=== PATIENT | male | born 1960 | race African-American/Black ===

== ENCOUNTER 2018-08-04 08:50 | Inpatient (IN) | payer OTHER ==
[2018-08-04 11:44] VITALS: BMI 25.1
--- NOTE | 2018-08-04 12:52 | HP ---
CIWA Score Nausea/Vomitin-No Nausea/No Vomiting Muscle Tremors: 7-Severe,w/o Arm Extended Anxiety: 4-Mod. Anxious/Guarded Agitation: 2 Paroxysmal Sweats: No Perspiration Orientation: 2-Disoriented Date<2 days Tacttile Disturbances: 0-None Auditory Disturbances: 0-None Visual Disturbances: 0-None Headache: 0-None Present CIWA-Ar Total Score: 15 - Admission Criteria OASAS Guidelines: Admission for Medically Managed Detox: Requires at least one of the followin. CIWA greater than 12 2. Seizures within the past 24 hours 3. Delirium tremens within the past 24 hours 4. Hallucinations within the past 24 hours 5. Acute intervention needed for co occurring medical disorder 6. Acute intervention needed for co occurring psychiatric disorder 7. Severe withdrawal that cannot be handled at a lower level of care (continued vomiting, continued diarrhea, abnormal vital signs) requiring intravenous medication and/or fluids 8. Admission ROS BHS - HPI Allergies/Adverse Reactions: Allergies Allergy/AdvReac Type Severity Reaction Status Date / Time penicillin G Allergy Verified 08/04/18 11:35 History of Present Illness: pt here requesting detox from etoh use , reports 3-4 pints/day since "years ago " , + w/d seizures , was at [facility] earlier today , was given librium and sent to this facility . 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 homeless , on SSD . Exam Limitations: No Limitations - Ebola screening Have you traveled outside of the country in the last 21 days: No Have you had contact with anyone from an Ebola affected area: No - Review of Systems Constitutional: See HPI EENT: reports: See HPI, Other (left eye blind) Respiratory: reports: See HPI (reports chronic bronchitis) Cardiac: reports: No Symptoms Reported GI: reports: See HPI : reports: No Symptoms Reported Musculoskeletal: reports: Joint Pain (vitaliy knees , left hip - chronic) Integumentary: reports: No Symptoms Reported Neuro: reports: Pre-Existing Deficit, Seizure, Unsteady Gait (2/2 chronic knee / hip pain) Endocrine: reports: No Symptoms Reported Psychiatric: reports: Orientated x3, Anxious, Depressed Patient History - Smoking Cessation Smoking history: Never smoked - Substances abused Alcohol Substance route: Oral Frequency: Daily Amount used: 4-5 PINTS OF VODKA, 4 CANS OF BEER (24 OUNCES) Age of first use: 13 Date of last use: 08/04/18 Family Disease History - Family Disease History Family Disease History: Other: Father (htn), Mother (htn), Brother (2 brothers d. ), Sister (1 sister d. , 1 sister A & W ), Son (3, A & W ), Daughter (1 , a & w ) Admission Physical Exam S - Vital Signs Vital Signs: Vital Signs - 24 hr 08/04/18 11:41 Temperature 98.4 F Pulse Rate 94 H Respiratory 18 Rate Blood Pressure 147/92 - Physical General Appearance: Yes: Mild Distress, Anxious HEENTM: Yes: Normocephalic, Normal Voice, Other (left eye blind , glasses) Respiratory: Yes: Lungs Clear, Normal Breath Sounds, No Respiratory Distress, No Accessory Muscle Use Neck: Yes: No masses,lesions,Nodules, Trachea in good position Cardiology: Yes: Regular Rhythm, Regular Rate, S1, S2, Tachycardia Abdominal: Yes: Non Tender, Soft Musculoskeletal: Yes: Joint Stiffness (left >> right knee w/ crepitus left knee , decreased AROM vitaliy knees), Other (unsteady gait , using cane for ambulation) Extremities: Yes: Pedal Edema (vitaliy LE , symmetrical, non- pitting , to mid-calf ), Other (vitaliy knees stiffness , L >> R , decreased AROM left knee , + crepitus left knee) Neurological: Yes: Alert, Motor Strength 5/5 Integumentary: Yes: Warm - Diagnostic (1) Alcohol abuse with intoxication Current Visit: Yes Status: Acute Inpatient Rehab Admission - Rehab Decision to Admit Inpatient rehab admission?: No
[2018-08-04] MEDS ORDERED: guaiFENesin 200 MG/10 ML 10 ML UNIT-DOSE CUPS PO PRN (13:06)
[2018-08-04] MEDS ORDERED: MENTHOL/PHENOL 1 EACH UD MM PRN (13:06)
[2018-08-04] MEDS ORDERED: BISMUTH SUBSALICYLATE 524 MG/30 ML UD PO PRN (13:06)
[2018-08-04] MEDS ORDERED: MAGNESIUM HYDROX 2400MG/30ML ORAL SUSPENSION 30 ML CUP PO PRN (13:06)
[2018-08-04] MEDS ORDERED: hydrOXYzine PAMOATE 25 MG CAPSULE (FP) PO PRN (13:06)
[2018-08-04] MEDS ORDERED: ACETAMINOPHEN 325 MG TABLET (FP) PO PRN ×2 (13:06)
[2018-08-04] MEDS ORDERED: MAG HYDROX/AL HYDROX/SIMETH 30 ML UNIT-DOSE CUP PO PRN (13:06)
[2018-08-04] MEDS ORDERED: MAGNESIUM CITRATE 300 ML BOTTLE PO PRN (13:06)
[2018-08-04] MEDS ORDERED: IBUPROFEN 400 MG TABLET (FP) PO PRN (13:06)
[2018-08-04] MEDS ORDERED: chlordiazePOXIDE HCL 25 MG CAPSULE PO PRN (14:37)
[2018-08-04] MEDS ORDERED: cloNIDine-TTS 0.3 MG /24 HRS PATCH.TDWK TD SCH (15:00)
[2018-08-04] MEDS: PHENYTOIN NA EXTENDED 100 MG CAPSULE (FP) PO SCH ×2 (15:44→22:42)
[2018-08-04] MEDS: METOPROLOL TARTRATE 50 MG TABLET (FP) PO SCH (15:44)
--- NOTE | 2018-08-04 16:22 | CONSULT ---
[facility] Psychiatric Consult - Data Date of interview: 08/04/18 Admission source: [facility] Identifying data: First admission to [facility] for this 58 y/o AA male self- referred for detoxification (alcohol). Interviewed on . Patient is single , a father of four, homeless, unemployed and supported on SSD benefits. Substance Abuse History: Discussed in this interview. Mr Fitzpatrick endorses an enduring history of alcohol abuse since age 12-13. Details in [facility] report as follows : Alcohol. Substance route: Oral. Frequency: Daily. Amount used: 4 -5 PINTS OF VODKA, 4 CANS OF BEER (24 OUNCES). Age of first use: 13. 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 Patient walks with a cane. Psychiatric History: Patient denies history of psychiatric hospitalizations. Mr Fitzpatrick indicates that he sees a psychiatrist + therapist at [facility] in the [place]. Diagnosed with Bipolar Disorder and PTSD (self-report). Patient states that he is prescribed " a medication for sleep ". Name not recalled. No history of suicide attempts. Physical/Sexual Abuse/Trauma History: Patient denies history of abuse. Served in the [employer] for two years. 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 Patient reports a background of " less than honorable discharge ". Mr Fitzpatrick reports no combat experience. Additional Comment: Toxicology not available for review. Mental Status Exam - Mental Status Exam Alert and Oriented to: Time, Place, Person Cognitive Function: Good Patient Appearance: Well Groomed Mood: Nervous, Withdrawn, Anxious Affect: Mood Congruent, Constricted Patient Behavior: Fatigued, Appropriate, Cooperative Speech Pattern: Clear, Appropriate Voice Loudness: Normal Thought Process: Goal Oriented Hallucinations: Denies Suicidal Ideation: Denies Homicidal Ideation: Denies Insight/Judgement: Poor Sleep: Fair Appetite: Good Gait/Station: Other (slow gait ; walks with a cane) Psychiatric Findings - Problem List ([place] 1, 2,3) (1) Alcohol use disorder Current Visit: Yes Status: Chronic (2) History of posttraumatic stress disorder (PTSD) Current Visit: Yes Status: Chronic Comment: No symptoms elicited in this interview. (3) Insomnia Current Visit: Yes Status: Chronic - Initial Treatment Plan Initial Treatment Plan: Psychoeducation. Sleep hygiene. Insomnia is addressed with melatoin at bedtime. Side effects/benefits reviewed with patient. Detoxification. AA meetings. Relapse prevention (MAT) : discussed in this session. Support. Observation.
[2018-08-04] MEDS: chlordiazePOXIDE HCL 25 MG CAPSULE PO SCH ×2 (18:09→22:42)
[2018-08-04] MEDS: BRIMONIDINE TARTRATE 0.2% OPHTHALMIC 5 ML BOTTLE OS SCH (22:41)
[2018-08-04] MEDS: THIAMINE HCL 100 MG TABLET (FP) PO SCH (22:42)
[2018-08-04] MEDS: ATORVASTATIN CA 10 MG TABLET (FP) PO SCH (22:42)
[2018-08-04] MEDS: MELATONIN 5 MG TABLETS PO PRN (22:44)
[2018-08-05] MEDS: chlordiazePOXIDE HCL 25 MG CAPSULE PO SCH ×4 (06:27→22:09)
[2018-08-05] MEDS: PHENYTOIN NA EXTENDED 100 MG CAPSULE (FP) PO SCH ×3 (06:27→22:09)
[2018-08-05] MEDS: BRIMONIDINE TARTRATE 0.2% OPHTHALMIC 5 ML BOTTLE OS SCH ×3 (06:28→22:11)
[2018-08-05] MEDS: PRENATAL VITAMINS W/ FOLIC ACID TABLET (FP) PO SCH (10:23)
[2018-08-05] MEDS: FLUTICASONE PROP 0.05% 16 GM NASAL SPRAY NS SCH (10:23)
[2018-08-05] MEDS: METOPROLOL TARTRATE 50 MG TABLET (FP) PO SCH (10:25)
[2018-08-05 10:36] LABS: HEMATOCRIT 29.4 % (35.4-49); MCH 33.1 pg (25.7-33.7); MCHC 34.1 g/dl (32.0-35.9); MEAN PLT VOLUME 8.1 fl (7.5-11.1); PLATELET COUNT 242 K/MM3 (134-434); RBC 3.03 M/mm3 (4.00-5.60); RDW 13.5 % (11.9-15.9); WHITE BLOOD COUNT 4.3 K/mm3 (4.0-10.0)
--- NOTE | 2018-08-05 10:40 | PN ---
[facility] CIWA - CIWA Score Nausea/Vomitin Muscle Tremors: 2 Anxiety: 2 Agitation: 0-Normal Activity Paroxysmal Sweats: 3 Orientation: 0-Oriented Tacttile Disturbances: 0-None Auditory Disturbances: 0-None Visual Disturbances: 0-None Headache: 0-None Present CIWA-Ar Total Score: 10 BHS Progress Note (SOAP) Subjective: PATIENT C/O NAUSEA, DIARRHEA, NIGHT SWEATS AND SHAKES. Objective: 08/05/18 10:37 PE: ALERT AND ORIENTED X 3 SKIN WARM, MILD MOISTURE TO TRUNK OF BODY +PERRLA, EOMS INTACT BL EXT MILD TREMORS, +1 PEDAL EDEMA B/L AMB WITH CANE Assessment: 08/05/18 10:39 WITHDRAWAL SX Plan: CONTINUE DETOX ENCOURAGE ORAL FLUIDS LEG ELEVATION WHILE IN BED LABS PENDING
[2018-08-05 10:49] LABS: ALBUMIN 3.2 g/dl (3.4-5.0); BILIRUBIN,TOTAL 0.6 mg/dL (0.2-1); BLOOD UREA NITROGEN 10.4 mg/dL (7-18); CALCIUM 8.9 mg/dL (8.5-10.1); CREATININE 0.9 mg/dL (0.55-1.3)
[2018-08-05] MEDS: THIAMINE HCL 100 MG TABLET (FP) PO SCH (22:09)
[2018-08-05] MEDS: MELATONIN 5 MG TABLETS PO PRN (22:09)
[2018-08-05] MEDS: ATORVASTATIN CA 10 MG TABLET (FP) PO SCH (22:09)
[2018-08-06] MEDS: chlordiazePOXIDE HCL 25 MG CAPSULE PO SCH ×2 (05:51→10:03)
[2018-08-06] MEDS: PHENYTOIN NA EXTENDED 100 MG CAPSULE (FP) PO SCH ×3 (05:51→22:20)
[2018-08-06] MEDS: BRIMONIDINE TARTRATE 0.2% OPHTHALMIC 5 ML BOTTLE OS SCH ×3 (05:52→22:21)
[2018-08-06] MEDS: PRENATAL VITAMINS W/ FOLIC ACID TABLET (FP) PO SCH (10:03)
[2018-08-06] MEDS: FLUTICASONE PROP 0.05% 16 GM NASAL SPRAY NS SCH (10:03)
[2018-08-06] MEDS: METOPROLOL TARTRATE 50 MG TABLET (FP) PO SCH (10:03)
--- NOTE | 2018-08-06 12:55 | PN ---
S CIWA - CIWA Score Nausea/Vomitin-Mild Nausea/No Vomiting Muscle Tremors: 3 Anxiety: 3 Agitation: 3 Paroxysmal Sweats: 3 Orientation: 0-Oriented Tacttile Disturbances: 0-None Auditory Disturbances: 0-None Visual Disturbances: 0-None Headache: 0-None Present CIWA-Ar Total Score: 13 S Progress Note (SOAP) Subjective: Interrupted sleep Objective: 08/06/18 12:52 Last Vital Signs Temp Pulse Resp BP Pulse Ox 97.9 F 69 16 133/76 08/06/18 09:38 08/06/18 09:38 08/06/18 09:38 08/06/18 09:38 Laboratory Tests 08/05/18 08/05/18 08/05/18 08:00 08:00 08:00 WBC 4.3 RBC 3.03 L Hgb 10.0 L Hct 29.4 L MCV 97.0 H MCH 33.1 MCHC 34.1 RDW 13.5 Plt Count 242 MPV 8.1 Sodium 139 Potassium 4.0 Chloride 104 Carbon Dioxide 26 Anion Gap 9 BUN 10.4 Creatinine 0.9 Est GFR (CKD-EPI)AfAm 108.73 Est GFR (CKD-EPI)NonAf 93.82 Random Glucose 109 H Calcium 8.9 Total Bilirubin 0.6 AST 34 ALT 32 Alkaline Phosphatase 88 Total Protein 7.0 Albumin 3.2 L RPR Titer Nonreactive Labs reviewed: anemia noted Assessment: 08/06/18 12:53 Withdrawal symptoms Noted with anemia Plan: Continue detox Encouraged PO water hydration Anemia: most likely due to chronic alcoholism, encourage to eat more green leafy vegetables, follow up with PCP for management
[2018-08-06] MEDS ORDERED: chlordiazePOXIDE HCL 10 MG CAPSULE PO PRN (17:00)
[2018-08-06] MEDS: chlordiazePOXIDE HCL 10 MG CAPSULE PO SCH ×2 (17:15→22:20)
[2018-08-06] MEDS ORDERED: cloNIDine HCL 0.1 MG TABLET PO ONE (17:46)
--- NOTE | 2018-08-06 17:49 | PN ---
S Progress Note Note: 163/110,no complaint,will give clonidine 0.1 mg po now,bp monitoring
[2018-08-06] MEDS: ATORVASTATIN CA 10 MG TABLET (FP) PO SCH (22:20)
[2018-08-06] MEDS: THIAMINE HCL 100 MG TABLET (FP) PO SCH (22:20)
[2018-08-07] MEDS: BRIMONIDINE TARTRATE 0.2% OPHTHALMIC 5 ML BOTTLE OS SCH ×3 (05:52→22:22)
[2018-08-07] MEDS: chlordiazePOXIDE HCL 10 MG CAPSULE PO SCH ×3 (05:52→18:52)
[2018-08-07] MEDS: PHENYTOIN NA EXTENDED 100 MG CAPSULE (FP) PO SCH ×3 (05:52→22:23)
[2018-08-07] MEDS: PRENATAL VITAMINS W/ FOLIC ACID TABLET (FP) PO SCH (10:23)
[2018-08-07] MEDS: FLUTICASONE PROP 0.05% 16 GM NASAL SPRAY NS SCH (10:24)
[2018-08-07] MEDS: METOPROLOL TARTRATE 50 MG TABLET (FP) PO SCH (11:19)
--- NOTE | 2018-08-07 12:46 | PN ---
[facility] CIWA - CIWA Score Nausea/Vomitin-No Nausea/No Vomiting Muscle Tremors: 2 Anxiety: 1-Mildly Anxious Agitation: 1-Slight > Activity Paroxysmal Sweats: No Perspiration Orientation: 0-Oriented Tacttile Disturbances: 0-None Auditory Disturbances: 0-None Visual Disturbances: 0-None Headache: 0-None Present CIWA-Ar Total Score: 4 BHS Progress Note (SOAP) Subjective: anxiety feeling better. i am ready to start my aftercare. Objective: 08/07/18 12:44 Vital Signs Temperature 98.8 F 08/07/18 09:21 Pulse Rate 98 H 08/07/18 09:21 Respiratory Rate 17 08/07/18 09:21 Blood Pressure 137/100 08/07/18 09:21 O2 Sat by Pulse Oximetry (%) aaox3 BP noted pt is already on clonidine 0.3mg via patch will order a 0.1mg of clonidine x one Assessment: 08/07/18 12:45 mild withdrawal sx Plan: continue detox increase fluids d/c in am
[2018-08-07] MEDS ORDERED: cloNIDine HCL 0.1 MG TABLET PO ONE (13:15)
[2018-08-07] MEDS: ATORVASTATIN CA 10 MG TABLET (FP) PO SCH (22:23)
[2018-08-07] MEDS: THIAMINE HCL 100 MG TABLET (FP) PO SCH (22:23)
[2018-08-07] MEDS: MELATONIN 5 MG TABLETS PO PRN (22:24)
[2018-08-08] MEDS: BRIMONIDINE TARTRATE 0.2% OPHTHALMIC 5 ML BOTTLE OS SCH (05:59)
[2018-08-08] MEDS: PHENYTOIN NA EXTENDED 100 MG CAPSULE (FP) PO SCH (05:59)
[2018-08-08] MEDS: chlordiazePOXIDE HCL 10 MG CAPSULE PO SCH (06:00)
--- NOTE | 2018-08-08 09:17 | DS ---
[facility] Detox Discharge Summary Admission Date: 08/04/18 Discharge Date: 08/08/18 - History Present History: Alcohol Dependence - Physical Exam Results Vital Signs: Vital Signs Temperature 96.6 F L 08/08/18 06:00 Pulse Rate 76 08/08/18 07:16 Respiratory Rate 18 08/08/18 07:16 Blood Pressure 150/97 08/08/18 07:16 O2 Sat by Pulse Oximetry (%) - Treatment Hospital Course: Detox Protocol Followed, Detoxed Safely, Responded well, Discharged Condition Good, Rehab Referral Accepted - Medication Discharge Medications: Ambulatory Orders Brimonidine Tartrate [Alphagan 0.2% -] 1 drop TID 08/04/18 Clonidine Patch [Catapres Tts Patch -] 0.3 mg TD WEEKLY 08/04/18 Ergocalciferol [Vitamin D2] 50,000 unit PO Q7D@1000 08/04/18 Fluticasone Prop 0.05% Nasal [Flonase -] 1 spray NS DAILY 08/04/18 Folic Acid - 1 mg PO DAILY 08/04/18 Metoprolol Tartrate [Lopressor] 100 mg PO DAILY 08/04/18 Multivitamin [One-Daily Multi-Vitamin] 1 each PO DAILY 08/04/18 Phenytoin Na Extended [Dilantin -] 100 mg PO TID 08/04/18 Simvastatin [Zocor -] 20 mg PO HS 08/04/18 - Diagnosis (1) History of posttraumatic stress disorder (PTSD) Current Visit: Yes Status: Chronic (2) Insomnia Current Visit: Yes Status: Chronic (3) Alcohol dependence with uncomplicated withdrawal Current Visit: Yes Status: Chronic - AMA Did Patient Leave Against Medical Advice: No (referred to [facility])
[2018-08-08 09:32] VITALS: BP 148/103; PULSE 79; TEMP 96.8
[2018-08-08] MEDS: FLUTICASONE PROP 0.05% 16 GM NASAL SPRAY NS SCH (09:34)
[2018-08-08] MEDS: METOPROLOL TARTRATE 50 MG TABLET (FP) PO SCH (09:34)
[2018-08-08] MEDS: PRENATAL VITAMINS W/ FOLIC ACID TABLET (FP) PO SCH (09:34)
[2018-08-11] MEDS ORDERED: ERGOCALCIFEROL (VIT D2) 50,000 UNIT (1.25 MG) CAPSULE PO SCH (10:00)
== END 2018-08-08 11:30 | disposition home or self-care (01) | DRG 897 ==
LOC: YASAS 08:50 → Y6N 14:12
PROVIDERS: ADMIT Surgery; ATTEND Surgery
PROC: HZ2ZZZZ Detoxification Services for Substance Abuse Treatment (ICD-10-PCS; principal; 2018-08-04)
DX: F10.230 Alcohol dependence with withdrawal, uncomplicated (principal); I10 Essential (primary) hypertension; G47.00 Insomnia, unspecified; D64.9 Anemia, unspecified; E78.5 Hyperlipidemia, unspecified; K21.9 Gastro-esophageal reflux disease without esophagitis; H54.40 Blindness, one eye, unspecified eye; G40.909 Epilepsy, unspecified, not intractable, without status epilepticus; R00.0 Tachycardia, unspecified; M25.562 Pain in left knee; M25.561 Pain in right knee; R26.2 Difficulty in walking, not elsewhere classified; M25.552 Pain in left hip; G89.29 Other chronic pain; Z88.0 Allergy status to penicillin
CPT/HCPCS: 36415; 71045-TC-FY; 80053; 85027; 86593; J0735

== ENCOUNTER 2018-10-02 10:57 | Inpatient (IN) | payer OTHER ==
[2018-10-02 13:47] VITALS: BMI 25.7
--- NOTE | 2018-10-02 15:24 | HP ---
Addendum entered and electronically signed by Tamanna Meadows, RESIDENT 10/02/18 16: 27: Patient now decided he also wants rehab. Original Note: CIWA Score Nausea/Vomitin Muscle Tremors: 2 Anxiety: 2 Agitation: 2 Paroxysmal Sweats: 2 Orientation: 0-Oriented Tacttile Disturbances: 0-None Auditory Disturbances: 0-None Visual Disturbances: 0-None Headache: 2-Mild CIWA-Ar Total Score: 12 - Admission Criteria OASAS Guidelines: Admission for Medically Managed Detox: Requires at least one of the followin. CIWA greater than 12 2. Seizures within the past 24 hours 3. Delirium tremens within the past 24 hours 4. Hallucinations within the past 24 hours 5. Acute intervention needed for co occurring medical disorder 6. Acute intervention needed for co occurring psychiatric disorder 7. Severe withdrawal that cannot be handled at a lower level of care (continued vomiting, continued diarrhea, abnormal vital signs) requiring intravenous medication and/or fluids 8. Admission ROS [facility] Chief Complaint: alcohol detox Allergies/Adverse Reactions: Allergies Allergy/AdvReac Type Severity Reaction Status Date / Time penicillin G Allergy Verified 08/04/18 11:35 History of Present Illness: Patient is a 58 yo M with a PMHx of HTN, PTSD, bipolar disoder, seizure disorder , chronic bronchitis, is presenting for alcohol detox. Does not want rehab. Patient has been drinking for 40 years. Last drink last night estimated at around 4 Pints. Patient drinks daily. Hx of blacking out, when having a seizure. Last seizure was last week. Denies drug use, tobacco use. Patient homeless. Last here 08/04-08/08 for detox - Ebola screening Have you traveled outside of the country in the last 21 days: No Have you had contact with anyone from an Ebola affected area: No - Review of Systems Constitutional: Unintentional Wgt. Loss EENT: reports: Blurred Vision (Cant see from left eye) Respiratory: reports: Cough (says he has chronic bronchitis). denies: Shortness of Breath Cardiac: reports: Edema Patient History - Patient Medical History Hx Asthma: No Hx Chronic Obstructive Pulmonary Disease (COPD): Yes (chronic bronchitis) Hx Cardiac Disorders: No Hx Hypertension: Yes Hx Seizures: Yes (last 1 week ago on meds.) Hx Diabetes: No Hx Gastrointestinal Disorders: No Hx Genitourinary Disorders: No Hx Sexually Transmitted Disorders: No Hx Renal Disease (ESRD): No Hx Depression: Yes Hx Suicide Attempt: No Hx Schizophrenia: No - Patient Surgical History Past Surgical History: Yes Hx Neurologic Surgery: No Hx Cataract Extraction: No Hx Cardiac Surgery: No Hx Lung Surgery: No Hx Breast Surgery: No Hx Breast Biopsy: No Hx Abdominal Surgery: No Hx Appendectomy: No Hx Cholecystectomy: No Hx Genitourinary Surgery: No Hx Section: No Hx Orthopedic Surgery: Yes Other Surgical History: L eye sx x2 from trauma. - Smoking Cessation Smoking history: Never smoked Hx Chewing Tobacco Use: No - Substances abused Alcohol Substance route: Oral Frequency: Daily Amount used: 4 PINTS OF VODKA, 4 CANS OF BEER (24 OUNCES) Age of first use: 13 Date of last use: 10/01/18 Family Disease History - Family Disease History Family Disease History: Other: Father (htn), Mother (htn), Brother (2 brothers d. ), Sister (1 sister d. , 1 sister A & W ), Son (3, A & W ), Daughter (1 , a & w ) Admission Physical Exam BHS - Vital Signs Vital Signs: Vital Signs - 24 hr 10/02/18 13:26 Temperature 97.7 F Pulse Rate 70 Respiratory 16 Rate Blood Pressure 168/104 H - Physical General Appearance: Yes: No Apparent Distress Respiratory: Yes: No Respiratory Distress, No Accessory Muscle Use Cardiology: Yes: Regular Rate. No: JVD Extremities: Yes: Other (Edema) - Diagnostic (1) Bipolar 1 disorder Current Visit: Yes Status: Acute (2) Alcohol dependence with uncomplicated withdrawal Current Visit: No Status: Chronic (3) History of posttraumatic stress disorder (PTSD) Current Visit: No Status: Chronic Comment: No symptoms elicited in this interview. Breathalyzer - Breathalyzer Breathalyzer: 0 Urine Drug Screen - Test Device Lot number: [id number] Expiration date: 07/14/20 - Control Is test valid?: Yes - Results Drug screen NEGATIVE: No Urine drug screen results: BZO-Benzodiazepines Inpatient Rehab Admission - Rehab Decision to Admit Inpatient rehab admission?: No
[2018-10-02] MEDS ORDERED: hydrOXYzine PAMOATE 25 MG CAPSULE (FP) PO PRN (16:07)
[2018-10-02] MEDS ORDERED: IBUPROFEN 400 MG TABLET (FP) PO PRN (16:07)
[2018-10-02] MEDS ORDERED: MAGNESIUM CITRATE 300 ML BOTTLE PO PRN (16:07)
[2018-10-02] MEDS ORDERED: ACETAMINOPHEN 325 MG TABLET (FP) PO PRN (16:07)
[2018-10-02] MEDS ORDERED: METHOCARBAMOL 500 MG TABLET PO PRN (16:07)
[2018-10-02] MEDS ORDERED: chlordiazePOXIDE HCL 25 MG CAPSULE PO PRN (16:07)
[2018-10-02] MEDS ORDERED: BISMUTH SUBSALICYLATE 524 MG/30 ML UD PO PRN (16:07)
[2018-10-02] MEDS ORDERED: MAG HYDROX/AL HYDROX/SIMETH 30 ML UNIT-DOSE CUP PO PRN (16:07)
[2018-10-02] MEDS ORDERED: MENTHOL/PHENOL 1 EACH UD MM PRN (16:07)
[2018-10-02] MEDS ORDERED: MAGNESIUM HYDROX 2400MG/30ML ORAL SUSPENSION 30 ML CUP PO PRN (16:07)
--- NOTE | 2018-10-02 16:56 | PN ---
Teaching Attending Note Name of Resident: Tamanna Meadows ATTENDING PHYSICIAN STATEMENT I saw and evaluated the patient. I reviewed the resident's note and discussed the case with the resident. I agree with the resident's findings and plan as documented. SUBJECTIVE: this 58 years old male with alcohol dependence,seizure,bipolar disorder seeking detox, OBJECTIVE: withdrawal signs and symptom Vital Signs Temperature 97.7 F 10/02/18 13:26 Pulse Rate 70 10/02/18 13:26 Respiratory Rate 16 10/02/18 13:26 Blood Pressure 168/104 H 10/02/18 13:26 O2 Sat by Pulse Oximetry (%) ASSESSMENT AND PLAN: this patient need inpatient detox from alcohol medically managed,librium regimen ,seizure precaution, encourage to go to rehab after detox
[2018-10-02] MEDS: chlordiazePOXIDE HCL 25 MG CAPSULE PO SCH ×2 (16:58→22:27)
[2018-10-02] MEDS ORDERED: METOPROLOL TARTRATE 50 MG TABLET (FP) PO ONE (17:00)
[2018-10-02] MEDS: THIAMINE HCL 100 MG TABLET (FP) PO SCH (22:27)
[2018-10-02] MEDS: PHENYTOIN NA EXTENDED 100 MG CAPSULE (FP) PO SCH (22:27)
[2018-10-02] MEDS: levETIRAcetam 500 MG TABLET (FP) PO SCH (22:27)
[2018-10-02] MEDS: MELATONIN 5 MG TABLETS PO PRN (22:29)
[2018-10-03] MEDS: chlordiazePOXIDE HCL 25 MG CAPSULE PO SCH ×4 (06:15→22:57)
[2018-10-03] MEDS: PHENYTOIN NA EXTENDED 100 MG CAPSULE (FP) PO SCH ×3 (06:18→22:57)
--- NOTE | 2018-10-03 09:34 | CONSULT ---
[facility] Psychiatric Consult - Data Date of interview: 10/03/18 Admission source: Self-referred Identifying data: Mr Fitzpatrick is a single Black, father of 4 children, unemployed receiving SSD, homeless seeking detox treatment for alcohol Substance Abuse History: Reports history of alcohol use. Refer to addiction counselor's summary for further information Medical History: Significant for chronic pain syndrome (left hip, both knees), dyslipidemia, GERD, hypertension, blindness in left eye (trauma), seizure disorder and history of traumatic brain injury (1981) . Patient walks with a cane. 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 Reports that he currently sees a therapist and a psychiatrist at [facility] in the [place] and he is prescribed medication to calm him down. This is not confirmed by calling [phone]. Pharmacist named all the medications patient filled there and none of them is psychotropic medication. Patient denies previous psychiatric hospitalizations or suicidal attempt. At present, denies experiencing psychotic, manic symptoms, S/H ideations. However, reports feeling depressed and sleeping poorly Physical/Sexual Abuse/Trauma History: Patient denies history of any type of abuse. Served in the [employer] for two years from [id number]. 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 Patient reports a background of " less than honorable discharge ". Mr Fitzpatrick reports no combat experience. 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 Reports being given 2 tickets for drinking Mental Status Exam - Mental Status Exam Alert and Oriented to: Time, Place, Person Cognitive Function: Fair Patient Appearance: Well Groomed Mood: Depressed Affect: Constricted Patient Behavior: Cooperative Speech Pattern: Clear Voice Loudness: Normal Thought Process: Intact, Goal Oriented Thought Disorder: Not Present Hallucinations: Denies Suicidal Ideation: Denies Homicidal Ideation: Denies Insight/Judgement: Poor Sleep: Poorly Appetite: Good Muscle strength/Tone: Normal Gait/Station: Other (uses a cane as ambulatory aid) Psychiatric Findings - Problem List ([place] 1, 2,3) (1) PTSD (post-traumatic stress disorder) Current Visit: Yes Status: Chronic (2) Bipolar disorder Current Visit: Yes Status: Chronic (3) Alcohol-induced mood disorder Current Visit: Yes Status: Acute (4) Alcohol-induced sleep disorder Current Visit: Yes Status: Acute (5) Alcohol dependence with uncomplicated withdrawal Current Visit: No Status: Chronic (6) HTN (hypertension) Current Visit: Yes Status: Chronic (7) Seizure disorder Current Visit: Yes Status: Chronic - Initial Treatment Plan Initial Treatment Plan: 1) Start Melatonin 5 mg po HS prn for insomnia. 2) Continue inpatient detoxification
[2018-10-03] MEDS: METOPROLOL TARTRATE 50 MG TABLET (FP) PO SCH (10:29)
[2018-10-03] MEDS: FLUTICASONE PROP 0.05% 16 GM NASAL SPRAY NS SCH (10:29)
[2018-10-03] MEDS: PRENATAL VITAMINS W/ FOLIC ACID TABLET (FP) PO SCH (10:29)
[2018-10-03] MEDS: levETIRAcetam 500 MG TABLET (FP) PO SCH ×2 (10:29→22:58)
[2018-10-03 10:58] LABS: ALBUMIN 3.5 g/dl (3.4-5.0); BILIRUBIN,TOTAL 0.3 mg/dL (0.2-1); BLOOD UREA NITROGEN 7.7 mg/dL (7-18); CREATININE 1.2 mg/dL (0.55-1.3); POTASSIUM 3.8 mmol/L (3.5-5.1); TOT PROT 7.5 g/dl (6.4-8.2)
[2018-10-03 11:08] LABS: HEMATOCRIT 29.7 % (35.4-49); MCH 32.9 pg (25.7-33.7); MCHC 33.6 g/dl (32.0-35.9); MEAN CELL VOLUME 97.8 fl (80-96); MEAN PLT VOLUME 7.9 fl (7.5-11.1); PLATELET COUNT 259 K/MM3 (134-434); RBC 3.03 M/mm3 (4.00-5.60); RDW 13.3 % (11.9-15.9); WHITE BLOOD COUNT 3.6 K/mm3 (4.0-10.0)
--- NOTE | 2018-10-03 12:19 | PN ---
S CIWA - CIWA Score Nausea/Vomitin Muscle Tremors: 2 Anxiety: 3 Agitation: 3 Paroxysmal Sweats: No Perspiration Orientation: 0-Oriented Tacttile Disturbances: 1-Very Mild Itch/Numbness Auditory Disturbances: 0-None Visual Disturbances: 0-None Headache: 2-Mild CIWA-Ar Total Score: 13 S Progress Note (SOAP) Subjective: alert,irritable,anxious,interrupted sleep,tremor Objective: 10/03/18 12:17 Vital Signs Temperature 96.1 F L 10/03/18 09:31 Pulse Rate 79 10/03/18 09:31 Respiratory Rate 18 10/03/18 09:31 Blood Pressure 152/96 10/03/18 09:31 O2 Sat by Pulse Oximetry (%) Laboratory Last Values WBC 3.6 K/mm3 (4.0-10.0) L 10/03/18 07:50 RBC 3.03 M/mm3 (4.00-5.60) L 10/03/18 07:50 Hgb 10.0 GM/dL (11.7-16.9) L 10/03/18 07:50 Hct 29.7 % (35.4-49) L 10/03/18 07:50 MCV 97.8 fl (80-96) H 10/03/18 07:50 MCH 32.9 pg (25.7-33.7) 10/03/18 07:50 MCHC 33.6 g/dl (32.0-35.9) 10/03/18 07:50 RDW 13.3 % (11.9-15.9) 10/03/18 07:50 Plt Count 259 K/MM3 (134-434) 10/03/18 07:50 MPV 7.9 fl (7.5-11.1) 10/03/18 07:50 Sodium 137 mmol/L (136-145) 10/03/18 07:50 Potassium 3.8 mmol/L (3.5-5.1) 10/03/18 07:50 Chloride 100 mmol/L (98-107) 10/03/18 07:50 Carbon Dioxide 28 mmol/L (21-32) 10/03/18 07:50 Anion Gap 9 MMOL/L (8-16) 10/03/18 07:50 BUN 7.7 mg/dL (7-18) 10/03/18 07:50 Creatinine 1.2 mg/dL (0.55-1.3) 10/03/18 07:50 Est GFR (CKD-EPI)AfAm 76.79 10/03/18 07:50 Est GFR (CKD-EPI)NonAf 66.26 10/03/18 07:50 Random Glucose 126 mg/dL (74-106) H 10/03/18 07:50 Calcium 9.0 mg/dL (8.5-10.1) 10/03/18 07:50 Total Bilirubin 0.3 mg/dL (0.2-1) 10/03/18 07:50 AST 23 U/L (15-37) 10/03/18 07:50 ALT 17 U/L (13-61) 10/03/18 07:50 Alkaline Phosphatase 103 U/L (45-117) 10/03/18 07:50 Total Protein 7.5 g/dl (6.4-8.2) 10/03/18 07:50 Albumin 3.5 g/dl (3.4-5.0) 10/03/18 07:50 Assessment: 10/03/18 12:18 withdrawal symptom Plan: continue detox librium regimen,initial glucose is 126,fasting glucoe in am
[2018-10-03] MEDS: BRIMONIDINE TARTRATE 0.2% OPHTHALMIC 5 ML BOTTLE OD SCH ×2 (13:33→22:58)
[2018-10-03] MEDS: ACETAMINOPHEN 325 MG TABLET (FP) PO PRN (18:23)
[2018-10-03] MEDS: MELATONIN 5 MG TABLETS PO PRN (22:57)
[2018-10-03] MEDS: THIAMINE HCL 100 MG TABLET (FP) PO SCH (22:58)
[2018-10-04] MEDS: BRIMONIDINE TARTRATE 0.2% OPHTHALMIC 5 ML BOTTLE OD SCH ×3 (06:14→22:26)
[2018-10-04] MEDS: chlordiazePOXIDE HCL 25 MG CAPSULE PO SCH ×4 (06:14→22:26)
[2018-10-04] MEDS: PHENYTOIN NA EXTENDED 100 MG CAPSULE (FP) PO SCH ×3 (06:15→22:26)
[2018-10-04] MEDS: PRENATAL VITAMINS W/ FOLIC ACID TABLET (FP) PO SCH (10:23)
[2018-10-04] MEDS: levETIRAcetam 500 MG TABLET (FP) PO SCH ×2 (10:23→22:26)
[2018-10-04] MEDS: METOPROLOL TARTRATE 50 MG TABLET (FP) PO SCH (10:23)
[2018-10-04] MEDS: FLUTICASONE PROP 0.05% 16 GM NASAL SPRAY NS SCH (10:24)
--- NOTE | 2018-10-04 16:14 | PN ---
[facility] CIWA - CIWA Score Nausea/Vomitin-No Nausea/No Vomiting Muscle Tremors: 2 Anxiety: 3 Agitation: 0-Normal Activity Paroxysmal Sweats: 2 Orientation: 0-Oriented Tacttile Disturbances: 2-Mild Itch/Numbness/Burn Auditory Disturbances: 2-Mild Harshness/Frighten Visual Disturbances: 2-Mild Sensitivity Headache: 0-None Present CIWA-Ar Total Score: 13 S Progress Note (SOAP) Subjective: Fatigue, Anxious, Tremors, Interrupted Sleep. Objective: PATIENT A & O X 3, OBSERVED AMBULATING ON UNIT WITH ASSISTANCE OF A CANE. IN NO ACUTE DISTRESS. 10/04/18 16:11 Vital Signs Temperature 97.6 F 10/04/18 13:40 Pulse Rate 88 10/04/18 13:40 Respiratory Rate 18 10/04/18 13:40 Blood Pressure 136/92 10/04/18 13:40 O2 Sat by Pulse Oximetry (%) Laboratory Tests 10/03/18 10/03/18 10/03/18 07:50 07:50 07:50 WBC 3.6 L RBC 3.03 L Hgb 10.0 L Hct 29.7 L MCV 97.8 H MCH 32.9 MCHC 33.6 RDW 13.3 Plt Count 259 MPV 7.9 Sodium 137 Potassium 3.8 Chloride 100 Carbon Dioxide 28 Anion Gap 9 BUN 7.7 Creatinine 1.2 Est GFR (CKD-EPI)AfAm 76.79 Est GFR (CKD-EPI)NonAf 66.26 Random Glucose 126 H Fasting Glucose Calcium 9.0 Total Bilirubin 0.3 AST 23 ALT 17 Alkaline Phosphatase 103 Total Protein 7.5 Albumin 3.5 RPR Titer Nonreactive 10/04/18 07:00 WBC RBC Hgb Hct MCV MCH MCHC RDW Plt Count MPV Sodium Potassium Chloride Carbon Dioxide Anion Gap BUN Creatinine Est GFR (CKD-EPI)AfAm Est GFR (CKD-EPI)NonAf Random Glucose Fasting Glucose 72 L Calcium Total Bilirubin AST ALT Alkaline Phosphatase Total Protein Albumin RPR Titer LABS NOTED. RESULT OF FASTING GLUCOSE LEVEL DRAWN EALRIER TODAY NOTED (RESULT WITHIN NORMAL RANGE). 10/04/18 16:12 Assessment: 10/04/18 16:12 WITHDRAWAL SYMPTOMS. ANEMIA. LEUKOPENIA. 10/04/18 16:13 Plan: CONTINUE DETOX. PATIENT IS CURRENTLY RECEIVING DAILY MVI CONTAINING B VITAMINS AND IRON WHILE ADMITTED FOR DETOX.
[2018-10-04] MEDS: MELATONIN 5 MG TABLETS PO PRN (22:26)
[2018-10-04] MEDS: THIAMINE HCL 100 MG TABLET (FP) PO SCH (22:26)
[2018-10-05] MEDS ORDERED: chlordiazePOXIDE HCL 10 MG CAPSULE PO PRN
[2018-10-05] MEDS: chlordiazePOXIDE HCL 10 MG CAPSULE PO SCH ×4 (06:00→22:38)
[2018-10-05] MEDS: PHENYTOIN NA EXTENDED 100 MG CAPSULE (FP) PO SCH ×3 (06:04→22:38)
[2018-10-05] MEDS: ACETAMINOPHEN 325 MG TABLET (FP) PO PRN ×2 (06:05→22:41)
[2018-10-05] MEDS: BRIMONIDINE TARTRATE 0.2% OPHTHALMIC 5 ML BOTTLE OD SCH ×3 (06:05→22:44)
[2018-10-05] MEDS: levETIRAcetam 500 MG TABLET (FP) PO SCH ×2 (10:36→22:38)
[2018-10-05] MEDS: FLUTICASONE PROP 0.05% 16 GM NASAL SPRAY NS SCH (10:36)
[2018-10-05] MEDS: PRENATAL VITAMINS W/ FOLIC ACID TABLET (FP) PO SCH (10:36)
[2018-10-05] MEDS: METOPROLOL TARTRATE 50 MG TABLET (FP) PO SCH (10:36)
[2018-10-05] MEDS: METHYL SALICYLATE/MENTHOL OINT 30 GM TUBE TP SCH ×2 (15:44→22:43)
--- NOTE | 2018-10-05 16:17 | PN ---
S CIWA - CIWA Score Nausea/Vomitin-No Nausea/No Vomiting Muscle Tremors: 3 Anxiety: 3 Agitation: 1-Slight > Activity Paroxysmal Sweats: No Perspiration Orientation: 0-Oriented Tacttile Disturbances: 1-Very Mild Itch/Numbness Auditory Disturbances: 0-None Visual Disturbances: 1-Very Mild Sensitivity Headache: 0-None Present CIWA-Ar Total Score: 9 BHS Progress Note (SOAP) Subjective: Body Aches, Anxious, Tremors. Objective: PATIENT A & O X 3. IN NO ACUTE DISTRESS. 10/05/18 16:16 Vital Signs Temperature 98.4 F 10/05/18 13:39 Pulse Rate 86 10/05/18 13:39 Respiratory Rate 16 10/05/18 13:39 Blood Pressure 131/79 10/05/18 13:39 O2 Sat by Pulse Oximetry (%) Laboratory Tests 10/03/18 10/03/18 10/03/18 07:50 07:50 07:50 WBC 3.6 L RBC 3.03 L Hgb 10.0 L Hct 29.7 L MCV 97.8 H MCH 32.9 MCHC 33.6 RDW 13.3 Plt Count 259 MPV 7.9 Sodium 137 Potassium 3.8 Chloride 100 Carbon Dioxide 28 Anion Gap 9 BUN 7.7 Creatinine 1.2 Est GFR (CKD-EPI)AfAm 76.79 Est GFR (CKD-EPI)NonAf 66.26 Random Glucose 126 H Fasting Glucose Calcium 9.0 Total Bilirubin 0.3 AST 23 ALT 17 Alkaline Phosphatase 103 Total Protein 7.5 Albumin 3.5 RPR Titer Nonreactive 10/04/18 07:00 WBC RBC Hgb Hct MCV MCH MCHC RDW Plt Count MPV Sodium Potassium Chloride Carbon Dioxide Anion Gap BUN Creatinine Est GFR (CKD-EPI)AfAm Est GFR (CKD-EPI)NonAf Random Glucose Fasting Glucose 72 L Calcium Total Bilirubin AST ALT Alkaline Phosphatase Total Protein Albumin RPR Titer LABS NOTED. Assessment: 10/05/18 16:17 WITHDRAWAL SYMPTOMS. LEUKOPENIA. ANEMIA. Plan: CONTINUE DETOX. TOPICAL [facility] FOR BILATERAL KNEE PAIN.
[2018-10-05] MEDS: MELATONIN 5 MG TABLETS PO PRN (22:38)
[2018-10-05] MEDS: THIAMINE HCL 100 MG TABLET (FP) PO SCH (22:38)
[2018-10-06] MEDS: BRIMONIDINE TARTRATE 0.2% OPHTHALMIC 5 ML BOTTLE OD SCH ×3 (06:29→22:33)
[2018-10-06] MEDS: chlordiazePOXIDE HCL 10 MG CAPSULE PO SCH ×2 (06:29→17:29)
[2018-10-06] MEDS: PHENYTOIN NA EXTENDED 100 MG CAPSULE (FP) PO SCH ×3 (06:29→22:32)
--- NOTE | 2018-10-06 09:48 | PN ---
S CIWA - CIWA Score Nausea/Vomitin Muscle Tremors: 1-None Visible, but [place] Anxiety: 0-No Anxiety, at Ease Agitation: 0-Normal Activity Paroxysmal Sweats: No Perspiration Orientation: 0-Oriented Tacttile Disturbances: 0-None Auditory Disturbances: 0-None Visual Disturbances: 0-None Headache: 0-None Present CIWA-Ar Total Score: 3 BHS Progress Note (SOAP) Subjective: Patient has no real complaints. He states he has some patch for high blood pressure which he isn't getting here. Otherwise, patient has minimal withdrawal symptoms. Objective: 10/06/18 09:45 BP: 134/79 P:76 R:18 T98.0 Laboratory 10/03/18 10/03/18 10/03/18 07:50 07:50 07:50 WBC 3.6 K/mm3 L K/mm3 (4.0-10.0) RBC 3.03 M/mm3 L M/mm3 (4.00-5.60) Hgb 10.0 GM/dL L GM/dL (11.7-16.9) Hct 29.7 % L % (35.4-49) MCV 97.8 fl H fl (80-96) MCH 32.9 pg pg (25.7-33.7) MCHC 33.6 g/dl g/dl (32.0-35.9) RDW 13.3 % % (11.9-15.9) Plt Count 259 K/MM3 K/MM3 (134-434) MPV 7.9 fl fl (7.5-11.1) Sodium 137 mmol/L mmol/L (136-145) Potassium 3.8 mmol/L mmol/L (3.5-5.1) Chloride 100 mmol/L mmol/L (98-107) Carbon Dioxide 28 mmol/L mmol/L (21-32) Anion Gap 9 MMOL/L MMOL/L (8-16) BUN 7.7 mg/dL mg/dL (7-18) Creatinine 1.2 mg/dL mg/dL (0.55-1.3) Est GFR (CKD-EPI)AfAm 76.79 Est GFR (CKD-EPI)NonAf 66.26 Random Glucose 126 mg/dL H mg/dL (74-106) Fasting Glucose Calcium 9.0 mg/dL mg/dL (8.5-10.1) Total Bilirubin 0.3 mg/dL mg/dL (0.2-1) AST 23 U/L U/L (15-37) ALT 17 U/L U/L (13-61) Alkaline Phosphatase 103 U/L U/L (45-117) Total Protein 7.5 g/dl g/dl (6.4-8.2) Albumin 3.5 g/dl g/dl (3.4-5.0) RPR Titer Nonreactive (NONREACTIVE) 10/04/18 07:00 WBC RBC Hgb Hct MCV MCH MCHC RDW Plt Count MPV Sodium Potassium Chloride Carbon Dioxide Anion Gap BUN Creatinine Est GFR (CKD-EPI)AfAm Est GFR (CKD-EPI)NonAf Random Glucose Fasting Glucose 72 mg/dL L mg/dL (74-106) Calcium Total Bilirubin AST ALT Alkaline Phosphatase Total Protein Albumin RPR Titer Assessment: 10/06/18 09:46 1. Alcohol Dependence Plan: 1. Continue detox protocol. Patient much better with a CIWA of only 4 2. BP is now normal even though he did not get his Catapres patches.
[2018-10-06] MEDS: FLUTICASONE PROP 0.05% 16 GM NASAL SPRAY NS SCH (10:43)
[2018-10-06] MEDS: levETIRAcetam 500 MG TABLET (FP) PO SCH ×2 (10:43→22:32)
[2018-10-06] MEDS: PRENATAL VITAMINS W/ FOLIC ACID TABLET (FP) PO SCH (10:43)
[2018-10-06] MEDS: METHYL SALICYLATE/MENTHOL OINT 30 GM TUBE TP SCH ×2 (10:43→22:34)
[2018-10-06] MEDS: METOPROLOL TARTRATE 50 MG TABLET (FP) PO SCH (10:43)
[2018-10-06] MEDS: THIAMINE HCL 100 MG TABLET (FP) PO SCH (22:32)
[2018-10-06] MEDS: MELATONIN 5 MG TABLETS PO PRN (22:32)
[2018-10-06] MEDS ORDERED: cloNIDine HCL 0.1 MG TABLET PO ONE (23:28)
[2018-10-06] MEDS ORDERED: hydrOXYzine PAMOATE 50 MG CAPSULE (FP) PO ONE (23:28)
[2018-10-07] MEDS ORDERED: chlordiazePOXIDE HCL 10 MG CAPSULE PO ONE (05:00)
[2018-10-07] MEDS: PHENYTOIN NA EXTENDED 100 MG CAPSULE (FP) PO SCH (06:03)
[2018-10-07 07:04] VITALS: BP 142/106; PULSE 68; TEMP 96.3
[2018-10-07] MEDS: BRIMONIDINE TARTRATE 0.2% OPHTHALMIC 5 ML BOTTLE OD SCH (07:52)
[2018-10-07] MEDS: levETIRAcetam 500 MG TABLET (FP) PO SCH (09:37)
[2018-10-07] MEDS: PRENATAL VITAMINS W/ FOLIC ACID TABLET (FP) PO SCH (09:38)
--- NOTE | 2018-10-07 13:32 | DS ---
[facility] Detox Discharge Summary Admission Date: 10/02/18 Discharge Date: 10/07/18 - History Present History: Alcohol Dependence Additional Comments: Pt is medically cleared and is discharged today. Pt has completed his detox protocol. Pt is encouraged to follow-up with CD outpatient program and also to follow-up with his PMD. Pt verbalized understanding. Pt is alert and oriented x3 and in no respiratory distress. Pertinent Past History: H/O HTN, bronchitis, and alcohol use disorder. - Physical Exam Results Vital Signs: Vital Signs Temperature 96.3 F L 10/07/18 06:00 Pulse Rate 68 10/07/18 06:00 Respiratory Rate 18 10/07/18 06:00 Blood Pressure 142/106 H 10/07/18 06:00 O2 Sat by Pulse Oximetry (%) Vital Signs 10/07/18 06:00 Temperature 96.3 F L Pulse Rate 68 Respiratory 18 Rate Blood Pressure 142/106 H Lab Results WBC 3.6 K/mm3 (4.0-10.0) L 10/03/18 07:50 RBC 3.03 M/mm3 (4.00-5.60) L 10/03/18 07:50 Hgb 10.0 GM/dL (11.7-16.9) L 10/03/18 07:50 Hct 29.7 % (35.4-49) L 10/03/18 07:50 MCV 97.8 fl (80-96) H 10/03/18 07:50 MCHC 33.6 g/dl (32.0-35.9) 10/03/18 07:50 RDW 13.3 % (11.9-15.9) 10/03/18 07:50 Plt Count 259 K/MM3 (134-434) 10/03/18 07:50 Sodium 137 mmol/L (136-145) 10/03/18 07:50 Potassium 3.8 mmol/L (3.5-5.1) 10/03/18 07:50 Chloride 100 mmol/L (98-107) 10/03/18 07:50 Carbon Dioxide 28 mmol/L (21-32) 10/03/18 07:50 Anion Gap 9 MMOL/L (8-16) 10/03/18 07:50 BUN 7.7 mg/dL (7-18) 10/03/18 07:50 Creatinine 1.2 mg/dL (0.55-1.3) 10/03/18 07:50 Random Glucose 126 mg/dL (74-106) H 10/03/18 07:50 Calcium 9.0 mg/dL (8.5-10.1) 10/03/18 07:50 Labs noted. Pertinent Admission Physical Exam Findings: withdrawal symptoms. - Treatment Hospital Course: Detox Protocol Followed, Detoxed Safely, Responded well, Discharged Condition Good - Medication Discharge Medications: Ambulatory Orders Brimonidine Tartrate [Alphagan 0.2% -] 1 drop TID 08/04/18 Clonidine Patch [Catapres Tts Patch -] 0.3 mg TD WEEKLY 08/04/18 Ergocalciferol [Vitamin D2] 50,000 unit PO Q7D@1000 08/04/18 Fluticasone Prop 0.05% Nasal [Flonase -] 1 spray NS DAILY 08/04/18 Folic Acid - 1 mg PO DAILY 08/04/18 Metoprolol Tartrate [Lopressor] 100 mg PO DAILY 08/04/18 Multivitamin [One-Daily Multi-Vitamin] 1 each PO DAILY 08/04/18 Phenytoin Na Extended [Dilantin -] 100 mg PO TID 08/04/18 Simvastatin [Zocor -] 20 mg PO HS 08/04/18 Quetiapine Fumarate [Seroquel] 100 mg PO 10/02/18 levETIRAcetam [Keppra -] 500 mg PO BID 10/02/18 - Diagnosis (1) Anemia Status: Acute (2) Alcohol dependence with uncomplicated withdrawal Status: Chronic (3) HTN (hypertension) Status: Chronic (4) Seizure disorder Status: Chronic - AMA Did Patient Leave Against Medical Advice: No
== END 2018-10-07 09:41 | disposition home or self-care (01) | DRG 897 ==
LOC: YASAS 10:57 → Y6N 16:21
PROVIDERS: ADMIT Surgery; ATTEND Surgery
PROC: HZ2ZZZZ Detoxification Services for Substance Abuse Treatment (ICD-10-PCS; principal; 2018-10-02)
DX: F10.230 Alcohol dependence with withdrawal, uncomplicated (principal); F10.24 Alcohol dependence with alcohol-induced mood disorder; F10.282 Alcohol dependence with alcohol-induced sleep disorder; F31.9 Bipolar disorder, unspecified; F43.10 Post-traumatic stress disorder, unspecified; D72.819 Decreased white blood cell count, unspecified; D64.9 Anemia, unspecified; G40.909 Epilepsy, unspecified, not intractable, without status epilepticus; I10 Essential (primary) hypertension
CPT/HCPCS: 36415; 80053; 82947; 85027; 86593; J0735

== ENCOUNTER 2019-03-05 16:00 | Inpatient (IN) | payer OTHER ==
[2019-03-05 16:23] VITALS: BMI 25.7
--- NOTE | 2019-03-05 17:52 | PDOC ---
History of Present Illness - General Chief Complaint: Edema Stated Complaint: SWOLLEN LEGS History Source: Patient Exam Limitations: No Limitations - History of Present Illness Initial Comments: 03/05/19 17:35 58 yo male pmh HTN, HLD, seizure (on keppra) and ETOH abuse presents to the ED from Detox center for bilateral lower limb edema. Pt states his last drink was this morning 1/4 pint of vodka. Pt admits to L hip fracture 2 months ago with ORIF and increased mobility with use of rolling walker. Pt states the swelling in the lower limbs began 1 month ago, bilaterally, with pain to bilateral calfs. Pt is homeless. Swelling progressively worsening over the month. Denies CP, SOB, F/C/N/V, back pain, abdominal pain Past History - Past Medical History Allergies/Adverse Reactions: Allergies Allergy/AdvReac Type Severity Reaction Status Date / Time penicillin G Allergy Verified 03/06/19 23:54 Penicillins Allergy Verified 03/06/19 23:54 Home Medications: Ambulatory Orders Brimonidine Tartrate [Alphagan 0.2% -] 1 drop OU TID 08/04/18 Clonidine Patch [Catapres Tts Patch -] 0.3 mg TD DAILY 08/04/18 Ergocalciferol [Vitamin D2] 50,000 unit PO Q7D@1000 08/04/18 Fluticasone Prop 0.05% Nasal [Flonase -] 1 spray NS DAILY 08/04/18 Folic Acid - 1 mg PO DAILY 08/04/18 Multivitamin [One-Daily Multi-Vitamin] 1 each PO DAILY 08/04/18 Simvastatin [Zocor -] 20 mg PO HS 08/04/18 Compression Socks, Medium [Futuro Restoring] 1 each MC DAILY #1 each 03/06/19 Furosemide [Lasix] 20 mg PO DAILY #30 tablet 03/06/19 Gauze Bandage [Bandage Roll] 1 each TP DAILY #1 bandage 03/06/19 Metoprolol Tartrate [Lopressor -] 100 mg PO DAILY 03/06/19 Mineral Oil/Pet Hy-Phl [Aquaphor -] 1 applic TP DAILY #1 jar 03/06/19 Multivitamins [Multivit ([facility] Form[facility])] 1 tab PO DAILY 30 Days #30 tab Thiamine HCl [Vitamin B1 -] 100 mg PO DAILY 30 Days #30 tablet 03/06/19 levETIRAcetam [Keppra -] 500 mg PO BID #60 tablet 03/11/19 Asthma: No Cardiac Disorders: No COPD: Yes (chronic bronchitis) Diabetes: No GI Disorders: No Disorders: No HTN: Yes Kidney Stones: No Seizures: Yes (last 1 week ago on meds.) - Surgical History Abdominal Surgery: No Appendectomy: No Cardiac Surgery: No Cholecystectomy: No Lung Surgery: No Neurologic Surgery: No Orthopedic Surgery: Yes - Reproductive History Testicular Surgery: No - Psycho Social/Smoking Cessation Hx Smoking History: Former smoker Have you smoked in the past 12 months: No Information on smoking cessation initiated: Yes Hx Alcohol Use: Yes Drug/Substance Use Hx: Yes Hx Substance Use Treatment: Yes Review of Systems - Review of Systems Constitutional: No: Chills, Fever Respiratory: No: Shortness of Breath, SOB with Exertion Cardiac (ROS): Yes: Edema. No: Chest Pain, Palpitations ABD/GI: No: Constipated, Diarrhea, Nausea, Vomiting : No: Burning, Dysuria, Discharge, Frequency Musculoskeletal: No: Joint Swelling, Muscle Weakness Neurological: No: Numbness, Tingling *Physical Exam - Vital Signs Last Vital Signs Temp Pulse Resp BP Pulse Ox 99.3 F 66 16 114/73 98 03/05/19 16:20 03/05/19 16:20 03/05/19 16:20 03/05/19 16:20 03/05/19 16:20 - Physical Exam General Appearance: Yes: Nourished, Appropriately Dressed. No: Apparent Distress HEENT: positive: EOMI Neck: positive: Supple. negative: Rigid, Carotid bruit Respiratory/Chest: positive: Lungs Clear, Normal Breath Sounds. negative: Accessory Muscle Use, Rapid RR, Crackles, Rales, Rhonchi, Stridor, Wheezing Cardiovascular: positive: Regular Rhythm, Regular Rate, S1, S2, Edema (3+ bilateral). negative: JVD, Murmur Vascular Pulses: Dorsalis-Pedis (R): 3+, Doralis-Pedis (L): 3+ Gastrointestinal/Abdominal: positive: Flat, Soft. negative: Pulsatile Mass, Distended, Guarding, Rebound, Tenderness Musculoskeletal: negative: CVA Tenderness Extremity: positive: Normal Capillary Refill, Normal Range of Motion, Swelling Integumentary: positive: Dry, Warm, Swelling, Other (3+ pitting bilateral lower ext with unkept bilateral feet, erythema and warmth) Neurologic: positive: Fully Oriented, Alert, Normal Mood/Affect, Normal Response , Motor Strength 06/18 ED Treatment Course - LABORATORY CBC & Chemistry Diagram: 03/06/19 15:00 03/06/19 15:00 - RADIOLOGY Radiology Studies Ordered: Category Date Time Status CHEST PA & LAT [RAD] Stat Radiology 03/05/19 17:06 Ordered DUPLEX VASCUL US-2LEGS [US] Stat Ultrasound 03/05/19 17:18 Ordered Medical Decision Making - Medical Decision Making 58 yo male pmh HTN, HLD, seizure (on keppra) and ETOH abuse presents to the ED from Detox center for bilateral lower limb edema. Pt states his last drink was this morning 1/4 pint of vodka. Pt admits to L hip fracture 2 months ago with ORIF and increased mobility with use of rolling walker. Pt states the swelling in the lower limbs began 1 month ago, bilaterally, with pain to bilateral calfs. Pt is homeless. Swelling progressively worsening over the month. Denies CP, SOB, F/C/N/V, back pain, abdominal pain vitals WNL NAD, appears comfortable 3+ pitting bilateral lower ext with unkept bilateral feet, erythema and warmth. No crackles or SOB WBC WNL, mild BNP elevation, CXR no acute path and no crackles or SOB bilateral cellulitis given complete clinical picture. X ray bilateral foot neg for osteo WIll treat with antibiotics and admit Discharge - Discharge Information Problems reviewed: Yes Clinical Impression/Diagnosis: Cellulitis Condition: Stable - Admission Yes - Follow up/Referral - Patient Discharge Instructions - Post Discharge Activity
[2019-03-05 18:03] LABS: EOS % 3.9 % (0-4.5); HEMATOCRIT 27.9 % (35.4-49); HEMOGLOBIN 9.4 GM/dL (11.7-16.9); LYMPH % 30.2 % (8-40); MCH 31.6 pg (25.7-33.7); MCHC 33.8 g/dl (32.0-35.9); MEAN CELL VOLUME 93.6 fl (80-96); MEAN PLT VOLUME 8.3 fl (7.5-11.1); MONO % 18.5 % (3.8-10.2); NEUT % 46.4 % (42.8-82.8); PLATELET COUNT 202 K/MM3 (134-434); RBC 2.99 M/mm3 (4.00-5.60); RDW 16.3 % (11.9-15.9); WHITE BLOOD COUNT 3.4 K/mm3 (4.0-10.0)
[2019-03-05 18:18] LABS: INR 0.98 (0.83-1.09); PROTHROMBIN TIME (PATIENT) 11.6 SEC (9.7-13.0)
--- NOTE | 2019-03-05 18:18 | PDOC ---
Attending Attestation - Resident Resident Name: Arsen Siddiqui - ED Attending Attestation I have performed the following: I have examined & evaluated the patient, The case was reviewed & discussed with the resident, I agree w/resident's findings & plan, Exceptions are as noted - HPI HPI: 58 yo M history HTN, HL, SZ, EtOH abuse presents from [facility] with BLE swelling and pain. He denies any trauma, wounds. Denies fever. He states it has started over the past month, with the swelling ascending up to his calves. - Physicial Exam PE: GENERAL: Awake, alert, and fully oriented, in no acute distress HEAD: No signs of trauma EYES: PERRLA, EOMI, sclera anicteric, conjunctiva clear ENT: Auricles normal inspection, hearing grossly normal, nares patent, oropharynx clear without exudates. Moist mucosa NECK: Normal ROM, supple, no lymphadenopathy, JVD, or masses LUNGS: Breath sounds equal, clear to auscultation bilaterally. No wheezes, and no crackles HEART: Regular rate and rhythm, normal S1 and S2, no murmurs, rubs or gallops ABDOMEN: Soft, nontender, normoactive bowel sounds. No guarding, no rebound. No masses EXTREMITIES: BLE with 3+ pitting edema, erythema, warmth, and diffuse tenderness from the feet up to the knees. Feet with multiple calluses and white lesions, malodorous. No crepitus. Upper extremities with normal range of motion , no edema. No clubbing or cyanosis. No cords, erythema, or tenderness NEUROLOGICAL: Cranial nerves II through XII grossly intact. Normal speech. Motor and sensation intact SKIN: Warm, dry, normal turgor, no rashes or lesions noted. - Medical Decision Making Pt with BLE cellulitis likely due to poor foot care, as he has multiple areas of skin cracking and calluses that would serve as a point of entry for bacteria. Feet are malodorous. Legs are tender and erythematous B/L. Will treat with IV abx and admit for consultation with podiatry/wound care.
[2019-03-05 18:37] LABS: ALBUMIN 3.2 g/dl (3.4-5.0); ALK PHOS 94 U/L (45-117); ANION GAP 8 MMOL/L (8-16); BILIRUBIN,TOTAL 0.3 mg/dL (0.2-1); CALCIUM 8.1 mg/dL (8.5-10.1); CHLORIDE 102 mmol/L (98-107); CO2 26 mmol/L (21-32); GLUCOSE,RANDOM 71 mg/dL (74-106); SGOT/AST 120 U/L (15-37); SGPT/ALT 44 U/L (13-61); SODIUM 136 mmol/L (136-145); TOT PROT 7.3 g/dl (6.4-8.2)
[2019-03-05] MEDS ORDERED: VANCOMYCIN 1 GM in D5W (PRE-DOCKED) 1,000 MG/250 ML IVPB ONE (19:13)
[2019-03-05] MEDS ORDERED: VANCOMYCIN 1 GRAM (PRE-DOCKED) 1,000 MG/250 ML BAG IVPB ONE (19:21)
[2019-03-05] MEDS ORDERED: CLINDAMYCIN 600MG PREMIX IVPB 600 MG/50 ML BAG IVPB ONE ×2 (20:13→20:49)
--- NOTE | 2019-03-05 23:02 | PN ---
Teaching Attending Note Name of Resident: Evangelista Vora ATTENDING PHYSICIAN STATEMENT I saw and evaluated the patient. I reviewed the resident's note and discussed the case with the resident. I agree with the resident's findings and plan as documented. SUBJECTIVE: Patient is a 58 year old man with a PMH of Penicillin allergy, HTN, HLD, Left eye surgery, Reduced vision in left eye, Seizure disorder (on Keppra) and Alcohol abuse presents to the ER from [facility] center for bilateral lower limb edema. Says his last drink was this morning - / pint of vodka. Had left hip fracture 2 months ago with ORIF and increased mobility with use of rolling walker. Patient states the swelling in the lower limbs began 1 month ago, bilaterally, with pain to bilateral calfs. Swelling progressively worsening over the month. Denies chest pain, SOB, fever, chills, nausea, vomiting, headache, palpitations, orthopnea, back pain, abdominal pain, dysuria or diarrhea. Former smoker. Denies alcohol, tobacco or illicit drug use. No sick contacts or recent travels. OBJECTIVE: Alert Vital Signs Period Temp Pulse Resp BP Sys/David Pulse Ox Last 24 Hr 99.3 F 66 16 114/73 98 HEENT: No Jaundice, eye redness or discharge: nonreactive left eye with impaired vision. Normocephalic, atraumatic. External ears are normal and hearing is grossly intact. No nasal discharge. Neck: Supple, nontender. No palpable adenopathy or thyromegaly. No JVD Chest: Good effort. Clear to auscultation and percussion. Heart: Regular. No S3, rub or murmur Abdomen: Not distended, soft, nontender and no HSM. No rebound or guarding. Normal bowel sounds. Ext: Peripheral pulses intact. Leg edema. Taut skin and erythema; skin breaks in between toes. Skin: Warm and dry. No petechiae, rash or ecchymosis. Neuro: Alert. Oriented x3. Not tremulous. CN 2-12 grossly intact. Sensation grossly intact in all four extremities and DTR are symmetric. Psych: Appropriate mood and affect. Good insight. Current Medications Generic Name Dose Route Start Last Admin Trade Name Freq PRN Reason Stop Dose Admin Enoxaparin Sodium 40 mg 03/06/19 10:00 Lovenox - SQ DAILY [facility] Folic Acid 1 mg 03/06/19 10:00 Folic Acid - PO DAILY [facility] Folic Acid 1 mg/ Thiamine HCl 1,000 mls @ 125 mls/hr 03/05/19 23:43 100 mg/ Multivitamins/Minerals IVPB 03/06/19 07:42 10 ml/ Sodium Chloride ONCE ONE Sodium Chloride 1,000 mls @ 75 mls/hr 03/05/19 23:45 Normal Saline - IV ASDIR [facility] Levetiracetam 500 mg 03/05/19 23:45 Keppra - PO BID [facility] Multivitamins/Minerals/Vitamin C 1 tab 03/06/19 10:00 Tab-A-Vit - PO DAILY [facility] Thiamine HCl 100 mg 03/06/19 10:00 Vitamin B1 - PO DAILY [facility] Home Medications Medication Instructions Recorded Brimonidine Tartrate [Alphagan 1 drop OU TID 08/04/18 0.2% -] Clonidine Patch [Catapres Tts 0.3 mg TD DAILY 08/04/18 Patch -] Ergocalciferol [Vitamin D2] 50,000 unit PO Q7D@1000 08/04/18 Fluticasone Prop 0.05% Nasal 1 spray NS DAILY 08/04/18 [Flonase -] Folic Acid - 1 mg PO DAILY 08/04/18 Metoprolol Tartrate [Lopressor] 100 mg PO DAILY 08/04/18 Multivitamin [One-Daily 1 each PO DAILY 08/04/18 Multi-Vitamin] Simvastatin [Zocor -] 20 mg PO HS 08/04/18 Quetiapine Fumarate [Seroquel] 100 mg PO HS 10/02/18 levETIRAcetam [Keppra -] 500 mg PO BID 10/02/18 Abnormal Lab Results 03/05/19 03/05/19 03/05/19 17:15 17:15 17:15 WBC 3.4 L RBC 2.99 L Hgb 9.4 L Hct 27.9 L RDW 16.3 H Monocytes % 18.5 H Random Glucose 71 L Calcium 8.1 L AST 120 H Creatine Kinase 337 H B-Natriuretic Peptide 352.1 H Albumin 3.2 L ASSESSMENT AND PLAN: 1. Bilateral chronic leg swelling - Etiology unclear. Venous insufficiency, increased vascular permeability, hypoalbuminemia and anemia are likely contributing factors. Will get urinalysis (?nephrosis) and ECHO to evaluate LV function and TSH. He got ?Vancomycin and Clindamycin in the ER. Will provide care for unkempt feet/toes, use topical antibiotics for interdigital skin breaks , elevate legs when supine, consult PT (?outpatient compression stockings) and consult ID and Podiatry. Await ID input before further IV antibiotics. Bilateral foot/ankle xrays showed soft tissue swelling but no fracture or evidence of osteomyelitis. No acute abnormality on CXR. EKG shows NSR with no significant changes. Vascular studies revealed bilateral Lara's cyst in the popliteal fossa, but no DVT. Will continue comprehensive care for all of patient s comorbid conditions including checking Keppra level and loading with 1 gm IV Keppra for Seizure disorder. 2. Hypoalbuminemia - Possibly due to combined effects of malnutrition and inflammation associated with comorbid chronic conditions. Will ensure adequate dietary protein intake and also consult security services specialist. Urinalysis pending. 3. Anemia - Cause unclear. Will do basic anemia work up including serial stool guaiacs, reticulocyte count and iron studies. Consult GI for colonoscopy. Would benefit from Procrit therapy once iron replete. 4. Alcohol abuse - Implement [facility] alcohol withdrawal protocol and do neurochecks. Implement seizure, fall and aspiration precautions. Treat with thiamine and folic acid and monitor electrolytes (Ca,Mg,K,P). Counseled patient about abstaining from alcohol. Will consult meat specialist and refer to alcohol detox upon discharge. 5. Hypertension - Restart suitable outpatient antihypertensive drugs when clinically appropriate. Revise regimen to ensure [id number] excellent BP control and child welfare counselor patient on the injurious effects of uncontrolled hypertension. Nonpharmacologic measures to control hypertension like weight loss , salt restriction and exercise discussed. Importance of adherence to treatment regimen and attainment of normotension emphasized. 6. DVT prophylaxis - Lovenox 40 mg SQ q 24 hours. 7. Advance directives - Full code
[2019-03-05] MEDS ORDERED: FOLIC ACID INJECTION - 1 MG, THIAMINE HCL 100 MG, MULTIVIT INJECTION ADULT 10 ML in SOD... IVPB ONE (23:43)
[2019-03-05] MEDS ORDERED: SODIUM CHLORIDE 1,000 ML IV SCH (23:45)
--- NOTE | 2019-03-06 00:10 | HP ---
CHIEF COMPLAINT: bilateral lower extremity swelling and wounds PCP: Dr. Leandro Rapp HISTORY OF PRESENT ILLNESS: Thai Fitzpatrick is a 58 year old male with a past medical history of HTN, HLD, seizures (on Keppra), COPD, EtOH use disorder, bipolar disorder. Patient stated that his last seizure was 10 days prior. Patient had presented to [facility] for alcohol detox. His last drink was before entering the facility. At the facility it was noted that the patient had swelling, pain, erythema of his legs and was sent to the [facility] ED for further evaluation. Patient stated that his swelling had been progressive over the last 3-4 months and was present prior to his L hip ORIF which was done 2 months ago. The swelling he noted was progressive and was becoming more painful. He stated that pain was present both at rest and during exertion. He noted that swelling was worse at the end of the day typically. Denied trauma to the legs but states that he does not take care of his feet well and that he does not have good shoes and his feet are wet frequently as he is homeless. Noted he has occasional chills, shortness of breath (which is similar to his baseline sob), lightheadedness. States he does get occasional numbness over his bilateral feet. Over this period of the time, he denied chest pain, n/v/c/d, headaches. Currently endorses minor tremors, bilateral leg swelling, erythema, and pain, mild shortness of breath. Stated he has been around people who have been sick at the soup kitchen he goes to. Endorses good appetite but does not eat when he consumes alcohol. Denies recent travel. ER course was notable for: (1) WBC 3.4, Hgb 9.4, AST 120, ALT 44, CK 337, BNP 352.1 (2) CXR with no acute pathology. (3) Foot x-rays noting moderate soft tissues swelliing on the dorsal aspect of the feet bilaterally. No soft tissues air Recent Travel: denies PAST MEDICAL HISTORY: as above PAST SURGICAL HISTORY: L hip ORIF, L eye surgery (s/p trauma) Social History: Smoking: denies ever smoking Alcohol: uses alcohol between 1-4 pints plus beers daily Drugs: last use of hard drugs in 1980s. Denies IVDU Homeless currently. 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 Allergies penicillin G Allergy (Verified 03/05/19 13:12) Penicillins Allergy (Verified 03/05/19 13:12) HOME MEDICATIONS: Home Medications Medication Instructions Recorded Brimonidine Tartrate [Alphagan 1 drop OU TID 08/04/18 0.2% -] Clonidine Patch [Catapres Tts 0.3 mg TD DAILY 08/04/18 Patch -] Ergocalciferol [Vitamin D2] 50,000 unit PO Q7D@1000 08/04/18 Fluticasone Prop 0.05% Nasal 1 spray NS DAILY 08/04/18 [Flonase -] Folic Acid - 1 mg PO DAILY 08/04/18 Metoprolol Tartrate [Lopressor] 100 mg PO DAILY 08/04/18 Multivitamin [One-Daily 1 each PO DAILY 08/04/18 Multi-Vitamin] Simvastatin [Zocor -] 20 mg PO HS 08/04/18 Quetiapine Fumarate [Seroquel] 100 mg PO HS 10/02/18 levETIRAcetam [Keppra -] 500 mg PO BID 10/02/18 REVIEW OF SYSTEMS CONSTITUTIONAL: generalized weakness, loss of appetite Absent: fever, chills, diaphoresis, malaise, weight change HEENT: Absent: rhinorrhea, nasal congestion, throat pain, throat swelling, difficulty swallowing, visual changes CARDIOVASCULAR: lightheadedness, peripheral edema Absent: chest pain, syncope, palpitations, irregular heart rate, RESPIRATORY: shortness of breath Absent: cough, dyspnea with exertion, orthopnea, wheezing, GASTROINTESTINAL: Absent: abdominal pain, abdominal distension, nausea, vomiting, diarrhea, constipation GENITOURINARY: Absent: dysuria, frequency, urgency, hesitancy, hematuria, flank pain MUSCULOSKELETAL: hip pain Absent: myalgia, arthralgia, joint swelling, neck pain SKIN: swelling of legs, painful legs, redness of legs Absent: rash, itching, pallor HEMATOLOGIC/IMMUNOLOGIC: Absent: easy bleeding, easy bruising, lymphadenopathy, frequent infections ENDOCRINE: Absent: unexplained weight gain, unexplained weight loss, heat intolerance, cold intolerance NEUROLOGIC: seizure Absent: headache, focal weakness or paresthesias, dizziness, unsteady gait, mental status changes, bladder or bowel incontinence PSYCHIATRIC: Absent: anxiety, depression, suicidal or homicidal ideation, hallucinations. PHYSICAL EXAMINATION Vital Signs - 24 hr 03/05/19 16:20 Temperature 99.3 F Pulse Rate 66 Respiratory 16 Rate Blood Pressure 114/73 O2 Sat by Pulse 98 Oximetry (%) GENERAL: Awake, alert, and oriented to self, location, months and year, in mild acute distress. Mildly tremorous. HEAD: Normal with no signs of trauma. EYES: R eye reactive to light, L eye poorly reactive to light, extraocular movements intact, noted scleral icterus. EARS, NOSE, THROAT: Oropharynx clear without exudates. Dry mucous membranes. NECK: Normal range of motion, supple without lymphadenopathy, JVD. LUNGS: Breath sounds equal, clear to auscultation bilaterally. No wheezes, and no crackles. No accessory muscle use. HEART: Regular rate and rhythm, normal S1 and S2 without murmur, rub. ABDOMEN: Soft, mildly tender on the L side of the abdomen, hernia noted on the left side of the abdomen, not distended, normoactive bowel sounds, no guarding, no rebound, no masses. MUSCULOSKELETAL: Normal range of motion at all joints but painful to movement on passive and active range of motion. No bony deformities or tenderness. UPPER EXTREMITIES: 2+ pulses, warm, well-perfused. No cyanosis. Noted clubbing of the fingers. LOWER EXTREMITIES: Poorly palpated pulses, warm throughout except on soles of feet which are cool. Calf tenderness to palpation. 2+ peripheral edema up to the knees. NEUROLOGICAL: Cranial nerves II-XII intact. 5/5 muscle strength upper and lower extremities bilaterally. Sensation intact to gross touch throughout. Poor gait, uses rollating walker for ambulation. PSYCHIATRIC: Cooperative. Good eye contact. Appropriate mood and affect. SKIN: Bilateral venous stasis changes. Laboratory Results - last 24 hr 03/05/19 03/05/19 03/05/19 17:15 17:15 17:15 WBC 3.4 L RBC 2.99 L Hgb 9.4 L Hct 27.9 L MCV 93.6 MCH 31.6 MCHC 33.8 RDW 16.3 H Plt Count 202 D MPV 8.3 Absolute Neuts (auto) 1.6 Neutrophils % 46.4 Lymphocytes % 30.2 Monocytes % 18.5 H Eosinophils % 3.9 Basophils % 1.0 Nucleated RBC % 0 PT with INR INR Sodium 136 Potassium 5.0 Chloride 102 Carbon Dioxide 26 Anion Gap 8 BUN 13.0 Creatinine 1.0 Est GFR (CKD-EPI)AfAm 95.73 Est GFR (CKD-EPI)NonAf 82.60 Random Glucose 71 L Calcium 8.1 L Total Bilirubin 0.3 AST 120 H ALT 44 Alkaline Phosphatase 94 Creatine Kinase 337 H Creatine Kinase Index No Result Required. CK-MB (CK-2) < 1.0 Troponin I < 0.02 B-Natriuretic Peptide 352.1 H Total Protein 7.3 Albumin 3.2 L 03/05/19 17:15 WBC RBC Hgb Hct MCV MCH MCHC RDW Plt Count MPV Absolute Neuts (auto) Neutrophils % Lymphocytes % Monocytes % Eosinophils % Basophils % Nucleated RBC % PT with INR 11.60 INR 0.98 Sodium Potassium Chloride Carbon Dioxide Anion Gap BUN Creatinine Est GFR (CKD-EPI)AfAm Est GFR (CKD-EPI)NonAf Random Glucose Calcium Total Bilirubin AST ALT Alkaline Phosphatase Creatine Kinase Creatine Kinase Index CK-MB (CK-2) Troponin I B-Natriuretic Peptide Total Protein Albumin EKG--> NSR, no ST segment changes, QTc 445 ASSESSMENT/PLAN: Thai Fitzpatrick is a 58 year old male with a past medical history of HTN, HLD, seizures (on Keppra), COPD, EtOH use disorder, bipolar disorder admitted for bilateral lower extremity swelling and wounds. Bilateral Lower Extremity Wounds/Swelling - likely in the setting of poor foot care, HTN, HLD, and r/o vascular disease - x-rays as above - no noted DVT on dopplers - arterial duplexes - podiatry consulted - wound care consulted - echo to rule out cardiac causes of swelling - topical clindamycin to bilateral feet - ID Consulted - UA to rule out renal causes of swelling - physical therapy ETOH Use Disorder - CIWA/Librium protocol - banana bag - MVI/thiamine/folate - seizure/fall precautions Anemia - likely due to long-standing alcohol use disorder - MCV is within normal limits - iron studies, B12, folate - GI consulted Elevated Liver Enzymes - likely due to alcohol use disorder - continue to trend - RUQ U/S - hepatitis panel Seizure Disorder - Keppra 1g loading dose - continue home Keppra 500mg bid - Keppra levels Chronic bronchitis - duoneb prn HTN - on home metoprolol, will need medication reconciliation HLD - on home simvastatin, will need medication reconciliation DVT PPx - on Lovenox 40 mg subq daily FEN - banana bagx1, start NS at 75cc/hr - continue to monitor electrolytes and replete as necessary - sodium controlled diet Dispo - admit to med-surg - needs medication reconciliation Family Medical History Family Hx Cardiac Disorders: Mother (HTN), Father (HTN) Visit type - Emergency Visit Emergency Visit: Yes ED Registration Date: 03/05/19 Care time: The patient presented to the Emergency Department on the above date and was hospitalized for further evaluation of their emergent condition. - New Patient This patient is new to me today: Yes Date on this admission: 03/06/19 - Critical Care Critical Care patient: No
[2019-03-06] MEDS ORDERED: ALBUTEROL SO4 2.5/IPRATROPIUM 0.5 INH SOL 3 ML VIAL.NEB. NEB PRN (00:29)
[2019-03-06] MEDS ORDERED: levETIRAcetam 500 MG TABLET (FP) PO ONE (01:19)
[2019-03-06] MEDS ORDERED: levETIRAcetam 500 MG/5 ML INJECTION VIAL IVPB ONE (01:20)
[2019-03-06] MEDS: levETIRAcetam 500 MG TABLET (FP) PO SCH ×3 (01:21→11:25)
[2019-03-06] MEDS ORDERED: chlordiazePOXIDE HCL 10 MG CAPSULE PO PRN (01:26)
[2019-03-06] MEDS ORDERED: chlordiazePOXIDE HCL 25 MG CAPSULE ONE ×2 (05:28→13:14)
[2019-03-06] MEDS: chlordiazePOXIDE HCL 25 MG CAPSULE PO SCH ×2 (05:31→13:27)
[2019-03-06] MEDS ORDERED: ENOXAPARIN NA (PORCINE) 40 MG/0.4 ML DISP.SYRIN SQ SCH (10:00)
[2019-03-06] MEDS ORDERED: THIAMINE HCL 100 MG TABLET (FP) PO SCH (10:00)
[2019-03-06] MEDS ORDERED: MULTIVITAMINS (DAILY MVI) TABLET (FP) PO SCH (10:00)
[2019-03-06] MEDS ORDERED: CLINDAMYCIN PHOSPHATE 1% TOPICAL SOLUTION 30 ML BOTTLE TP SCH (10:00)
[2019-03-06] MEDS ORDERED: FOLIC ACID 1 MG TABLET (FP) PO SCH (10:00)
--- NOTE | 2019-03-06 10:03 | CONSULT ---
- Consultation REQUESTING PROVIDER: Wound Care - Merlin Brennan CONSULT REQUEST: We have been asked to surgically evaluate this patient for bilat LE swelling and wounds PCP: Leandro Rapp MD Hospitalist: Ky Turcios MD HPI: Called to eval 58 yo male with PMHx as noted below. Patient sent from [facility] (Detox) for further evaluation of his LEs as it was noted there that his feet appeared swollen, painful and erythematous. Foot x-ray while in ED which identified moderate soft tissues swelling to dorsal aspect of the feet bilaterally. No soft tissues air. PMHx: HTN, HLD, Seizures, COPD, EtOH Abuse, Bipolar disorder PSHx: Left hip ORIF, Left eye surgery (s/p trauma) Home Meds Brimonidine Tartrate [Alphagan 0.2% -] 1 drop OU TID 08/04/18 Clonidine Patch [Catapres Tts Patch -] 0.3 mg TD DAILY 08/04/18 Ergocalciferol [Vitamin D2] 50,000 unit PO Q7D@1000 08/04/18 Fluticasone Prop 0.05% Nasal [Flonase -] 1 spray NS DAILY 08/04/18 Folic Acid - 1 mg PO DAILY 08/04/18 Metoprolol Tartrate [Lopressor] 100 mg PO DAILY 08/04/18 Multivitamin [One-Daily Multi-Vitamin] 1 each PO DAILY 08/04/18 Simvastatin [Zocor -] 20 mg PO HS 08/04/18 Quetiapine Fumarate [Seroquel] 100 mg PO HS 10/02/18 levETIRAcetam [Keppra -] 500 mg PO BID 10/02/18 Allergies: PCNs ROS CONSTITUTIONAL: generalized weakness, loss of appetite Absent: fever, chills, diaphoresis, malaise, weight change HEENT: Absent: rhinorrhea, nasal congestion, throat pain, throat swelling, difficulty swallowing, visual changes CARDIOVASCULAR: lightheadedness, peripheral edema. Absent: chest pain, syncope, palpitations, irregular heart rate, RESPIRATORY: shortness of breath. Absent: cough, dyspnea with exertion, orthopnea, wheezing, GASTROINTESTINAL: Absent: abdominal pain, abdominal distension, nausea, vomiting , diarrhea, constipation GENITOURINARY: Absent: dysuria, frequency, urgency, hesitancy, hematuria, flank pain MUSCULOSKELETAL: hip pain. Absent: myalgia, arthralgia, joint swelling, neck pain SKIN: swelling of legs, painful legs, redness of legs. Absent: rash, itching, pallor HEMATOLOGIC/IMMUNOLOGIC: Absent: easy bleeding, easy bruising, lymphadenopathy, frequent infections ENDOCRINE:Absent: unexplained weight gain, unexplained weight loss, heat intolerance, cold intolerance NEUROLOGIC: seizure. Absent: headache, focal weakness or paresthesias, dizziness , unsteady gait, mental status changes, bladder or bowel incontinence PSYCHIATRIC: Absent: anxiety, depression, suicidal or homicidal ideation, hallucinations. PE: GEN: A&O. HEAD: NC. AT. LUNGS: CTA bilat HEART: RRR UE: 2+ pulses, warm, well-perfused. No cyanosis. Noted clubbing of the fingers. LE: Bilat venous stasis changes. Warm. Weak DP/PT palpable pulses, Dopplerable DP/PT bilat. 2+ edema (up to the knees). NEURO: CN II-XII. Poor gait (rolliing walker for ambulation). PSYCHIATRIC: Cooperative. Good eye contact. Appropriate mood and affect. Last Vital Signs Temp Pulse Resp BP Pulse Ox 99.3 F 66 16 114/73 98 03/05/19 16:20 03/05/19 16:20 03/05/19 16:20 03/05/19 16:20 03/05/19 16:20 CBC, BMP 03/05/19 17:15 03/05/19 17:15 INR, PTT INR 0.98 (0.83-1.09) 03/05/19 17:15 Problem List - Problems (1) Bilateral lower leg cellulitis Assessment/Plan: 58 yo male sent from [facility] (currently in Detox), bilat LE cellulitis, venous stasis - Cont topical antibiotics - Elevate the lower extremity above the level of the heart at all times while at rest - Bilateral compression with sabrina wraps once cellulitis has receded (wrap from metacarpal heads to below knee) - Domeboro soaks QD (astringent for pruritus) - Apply Lac hydrin daily (for dry scaly skin) - Alcohol Withdrawl Protocol - No surgical intervention or further imaging warranted - Cont care per primary Team Above plan discussed with my attending and agrees. On behalf of Dr. Brennan, thank you for the opportunity to participate in your patient's care. Code(s): L03.116 - CELLULITIS OF LEFT LOWER LIMB; L03.115 - CELLULITIS OF RIGHT LOWER LIMB (2) Alcohol dependence with uncomplicated withdrawal Code(s): F10.230 - ALCOHOL DEPENDENCE WITH WITHDRAWAL, UNCOMPLICATED (3) Bipolar disorder Code(s): F31.9 - BIPOLAR DISORDER, UNSPECIFIED (4) HTN (hypertension) Code(s): I10 - ESSENTIAL (PRIMARY) HYPERTENSION (5) Seizure disorder Code(s): G40.909 - EPILEPSY, UNSP, NOT INTRACTABLE, WITHOUT STATUS EPILEPTICUS Visit type - Case Type Case Type: ED Admission - Emergency Emergency Visit: Yes ED Registration Date: 03/05/19 Care time: The patient presented to the Emergency Department on the above date and was hospitalized for further evaluation of their emergent condition. - New patient This patient is new to me today: Yes Date on this admission: 03/06/19
--- NOTE | 2019-03-06 11:25 | PN ---
Progress Note (short form) - Note Progress Note: GI CONSULT DICTATED - CT SCAN ABD ORDERED TO EVALUATE HIS LOWER ABD PAIN - STOOL OCCULT BLOOD ORDERED - TREND H/H QD SEE CONSULT DICTATED
--- NOTE | 2019-03-06 11:29 | EKG ---
Test Reason : Blood Pressure : / mmHG Vent. Rate : 064 BPM Atrial Rate : 064 BPM P-R Int : 162 ms QRS Dur : 072 ms QT Int : 432 ms P-R-T Axes : 077 054 039 degrees QTc Int : 445 ms POOR DATA QUALITY, INTERPRETATION MAY BE ADVERSELY AFFECTED NORMAL SINUS RHYTHM NORMAL ECG NO PREVIOUS ECGS AVAILABLE Confirmed by Jean Encarnacion MD ([id number]) on 03/06/2019 11:28:52 AM Referred By: Confirmed By:Jean Encarnacion MD
--- NOTE | 2019-03-06 12:18 | ECHO ---
Version: 1 Name: CHACE CUBA Exam: Adult Echocardiogram Study Date: 03/06/2019, 9:16 AM Age: 58 Years MMode/2D Measurements & Calculations IVSd: 1.27 cm LVIDs: 2.30 cm LVIDd: 3.4 cm LVPWd: 1.21 cm LVOT diam: 1.86 cm Ao root diam: 2.8 cm LA dimension: 3.0 cm Doppler Measurements & Calculations MV E max christ: 89.3 cm/sec Med E/e': 11.5 MV A max christ: 80.9 cm/sec Med Peak E' Christ: 7.8 cm/sec MV E/A: 1.10 Lat E/e': 9.1 Lat Peak E' Christ: 9.9 cm/sec Ao max P.3 mmHg Ao V2 max: 143.4 cm/sec TR max christ: 264.8 cm/sec TR max P.5 mmHg Left Ventricle The left ventricle is normal in size. There is mild concentric left ventricular hypertrophy. Left ve ntricular systolic function is normal. Ejection Fraction = 70%. Right Ventricle The right ventricle is normal in size and function. Atria Normal left and right atrial size and function. Mitral Valve The mitral valve is normal. There is trace mitral regurgitation. Tricuspid Valve The tricuspid valve is normal. There is mild tricuspid regurgitation. Aortic Valve There is mild aortic valve thickening. Pulmonic Valve The pulmonic valve is not well seen, but is grossly normal. Great Vessels The aortic root is normal size. Normal aortic arch, descending and ascending aorta. Summary Statements The left ventricle is normal in size. There is mild concentric left ventricular hypertrophy. Left ventricular systolic function is normal. Ejection Fraction = 70%. The right ventricle is normal in size and function. Normal left and right atrial size and function. The mitral valve is normal. There is trace mitral regurgitation. The tricuspid valve is normal. There is mild tricuspid regurgitation. There is mild aortic valve thickening. The pulmonic valve is not well seen, but is grossly normal. The aortic root is normal size. Normal aortic arch, descending and ascending aorta Jarvis Ortez 03/06/2019, 12:18 PM Ordering Physician: Evangelista Lang Referring Physician: EVANGELISTA LANG Performed By: Eliza Merlos
--- NOTE | 2019-03-06 13:45 | CONS ---
GASTROINTESTINAL CONSULTATION DATE OF CONSULTATION: DATE OF DICTATION: 03/06/2019 HISTORY OF PRESENT ILLNESS: Patient is a 58-year-old man with past medical history of hypertension, hyperlipidemia, seizures on Keppra, COPD, alcohol use disorder, bipolar, who was presenting to [facility] for alcohol detoxification. At the facility, he was noted to have lower extremity edema and sent to the emergency room for further evaluation. Apparently, he also had a left hip ORIF, which was done approximately 2 months ago. He states he has not had any new abdominal pain, but does complain of an inguinal hernia over the past 2 years, which has been giving him intermittent discomfort. In addition to that, he denies any nausea, vomiting, diarrhea, constipation, blood in the stool. He does state he has had some intermittent episodes of dark stool over the past 6 months; however, cannot give further detail. He denies current aspirin use. States that he used aspirin in the past. He has never had an endoscopy or colonoscopy in the past. PAST MEDICAL AND SURGICAL HISTORY: As listed in the HPI with the addition of left eye surgery status post trauma. SOCIAL HISTORY: He does drink alcohol, between 1-4 pints of beer daily. He did use drugs in the . He is currently homeless. Does not smoke. ALLERGIES: PENICILLIN. HOME MEDICATIONS: Include eye drops, Catapres, vitamin D, Flonase, Lopressor, multivitamin, Zocor, Seroquel, and Keppra. REVIEW OF SYSTEMS: As per the HPI. PHYSICAL EXAMINATION: Vital Signs: Temperature 99, blood pressure 114/70, pulse rate 66, respiratory rate 16, oxygen saturation 98% on room air. General: In no acute distress. HEENT: Anicteric sclera. Cardiovascular: S1, S2. Regular rate and rhythm. Lungs: Bilaterally clear to auscultation. Abdomen: Tender in the left inguinal area. Exam is limited in the emergency room. There is no rebound or guarding. Extremities: Positive bilateral lower extremity edema. LABORATORIES: White blood cell count 3.4, hemoglobin and hematocrit 9.4 over 27, MCV 93, platelet count 202. INR 0.98. Sodium 136, potassium 5, BUN over creatinine 13 over 1. Total bilirubin 0.3, AST 20, ALT 44, alkaline phosphatase 94. Creatinine kinase 337, BNP 352. IMAGING: He has not had any abdominal imaging, during this hospitalization. IMPRESSION: Normocytic anemia. May be multifactorial with potential alcohol abuse as a potential etiology. However, he also complains of dark stool. Therefore, gastrointestinal blood loss cannot be excluded, at this time. There is no sign of an overt gastrointestinal bleed. RECOMMENDATION: Stool for occult blood x3. Continue with PPI therapy. Once the patient is optimized, from a cardiopulmonary perspective, he would benefit from a diagnostic upper endoscopy and colonoscopy. This can also be done as an outpatient. Would also obtain abdominal CAT scan to further evaluate his hernia and he will benefit from a Surgery evaluation. This patient will be followed by the GI service. DO ALESSANDRO MARMOLEJO/[id number]
[2019-03-06] MEDS ORDERED: BRIMONIDINE TARTRATE 0.2% OPHTHALMIC 5 ML BOTTLE OU SCH (14:00)
--- NOTE | 2019-03-06 15:27 | DS ---
Physical Exam: SUBJECTIVE: Patient seen and examined. States that he has taken lasix in the past with some improvement but stopped taking it because he ran out of his medication and was not able to get it refilled. Denies any chest pain, SOB, abd pain, fever, chills. OBJECTIVE: Vital Signs Period Temp Pulse Resp BP Sys/David Pulse Ox Last 24 Hr 99.3 F 66 16 114/73 98 PHYSICAL EXAM GENERAL: The patient is awake, alert, and fully oriented, in no acute distress. HEAD: Normal with no signs of trauma. EYES: EOMI ENT: dry mucous membranes NECK: Trachea midline, full range of motion, supple. LUNGS: Breath sounds equal, clear to auscultation bilaterally, no wheezes, no crackles, no accessory muscle use. HEART: RRR, no murmur ABDOMEN: Soft, mild tenderness to palpation over left side, nondistended, normoactive bowel sounds, no guarding, no rebound EXTREMITIES: warm, 2+ non pitting edema up to the knees. Pulses difficult to palpate through edema. No erythema, skin breaks, ulcers noted on feet. NEUROLOGICAL: Normal speech, gait not observed. sensation intact throughout PSYCH: Normal mood, normal affect. cooperative SKIN: Warm. Dry skin on feet. LABS Laboratory Results - last 24 hr 03/05/19 03/05/19 03/05/19 17:15 17:15 17:15 WBC 3.4 L RBC 2.99 L Hgb 9.4 L Hct 27.9 L MCV 93.6 MCH 31.6 MCHC 33.8 RDW 16.3 H Plt Count 202 D MPV 8.3 Absolute Neuts (auto) 1.6 Neutrophils % 46.4 Lymphocytes % 30.2 Monocytes % 18.5 H Eosinophils % 3.9 Basophils % 1.0 Nucleated RBC % 0 PT with INR INR Sodium 136 Potassium 5.0 Chloride 102 Carbon Dioxide 26 Anion Gap 8 BUN 13.0 Creatinine 1.0 Est GFR (CKD-EPI)AfAm 95.73 Est GFR (CKD-EPI)NonAf 82.60 Random Glucose 71 L Calcium 8.1 L Total Bilirubin 0.3 AST 120 H ALT 44 Alkaline Phosphatase 94 Creatine Kinase 337 H Creatine Kinase Index No Result Required. CK-MB (CK-2) < 1.0 Troponin I < 0.02 B-Natriuretic Peptide 352.1 H Total Protein 7.3 Albumin 3.2 L 03/05/19 17:15 WBC RBC Hgb Hct MCV MCH MCHC RDW Plt Count MPV Absolute Neuts (auto) Neutrophils % Lymphocytes % Monocytes % Eosinophils % Basophils % Nucleated RBC % PT with INR 11.60 INR 0.98 Sodium Potassium Chloride Carbon Dioxide Anion Gap BUN Creatinine Est GFR (CKD-EPI)AfAm Est GFR (CKD-EPI)NonAf Random Glucose Calcium Total Bilirubin AST ALT Alkaline Phosphatase Creatine Kinase Creatine Kinase Index CK-MB (CK-2) Troponin I B-Natriuretic Peptide Total Protein Albumin HOSPITAL COURSE: Date of Admission:03/05/19 Date of Discharge: 03/06/19 58 y/o/m with PMHx of HTN, HLD, seizures (on Keppra), COPD, EtOH use disorder, bipolar disorder admitted for bilateral lower extremity swelling and wounds. Swelling in lower extremities likely due to poor foot care, alcohol abuse and comorbid conditions. Bilateral foot/ankle xrays showed soft tissue swelling but no fracture or evidence of osteomyelitis. Vascular studies revealed bilateral Lara's cyst in the popliteal fossa, but no DVT. CXR did not show any evidence of acute pathology. Patient has previously been on lasix and will be started on Lasix 20mg PO daily. ECHO completed without significant abnormalities. Patient was given abx while in the ED but as there is no evidence of infection (no leukocytosis, afebrile, no erythema of lower extremities) abx were discontinued. Patient was started on Librium protocol while admitted and will be transferred to [facility] facility for further detox. Anemia noted , likely 2/2 to long standing alcohol use disorder, referred to GI outpatient for further workup. patient's home medications were continued appropriately. Medically stable for discharge to [facility] for continuing detox. Minutes to complete discharge: 36 Discharge Summary Problems reviewed: Yes Reason For Visit: CELLULITIS Current Active Problems Bilateral lower leg cellulitis (Acute) Cellulitis (Acute) Condition: Stable - Instructions Diet, Activity, Other Instructions: You presented to the hospital with worsening swelling of your legs. You are being started on Lasix, which you said you have used in the past to help with your leg swelling. You will be transferred back to [facility] to complete your detox. You had an ultrasound of heart completed which did not show any significant abnormalities. Medication Changes: 1. START Lasix 20mg daily to help improve the swelling in your legs. 2. START taking multivitamins daily. 3. START taking Thiamine supplement daily. Follow up with the following physicians: 1. Please follow up with your primary care provider, Dr. Rapp, within one week of discharge for further management of your medical conditions and to discuss the medications that were started while you were in the hospital. 2. Please follow up with Dr. Tamez, Podiatry, within 1-2 weeks of discharge for further care of your feet and other medical conditions. 3. Please follow up with Dr. Freitas, Gastroenterology, for further workup of your low blood count. Activity and Diet 1. You are being discharged to [facility] to continue detox. 2. Avoid trauma to your lower extremities. 3. Please monitor your diet as you need to intake foods low in salt and fats. 4. Recommended to wear compression sabrina wraps on both lower extremities to help reduce swelling. Continue all your other medications as prescribed Please return to the ER if you have any signs or symptoms of chest pain, shortness of breath, uncontrollable fever, chills, nausea, vomiting, numbness, tingling, or weakness in any part of your body, changes in vision, or slurred speech. Please return to the ER if symptoms persist, worsen, or new symptoms arise. Referrals: Samy Tamez MD [Staff Physician] - Alysa Freitas DO [Staff Physician] - ON STAFF,NOT [Non Staff, Medical] - Edmond Orellana DO [Primary Care Provider] - Disposition: TRANSFER ACUTE CARE/OTHER HOSP - Home Medications Comprehensive Discharge Medication List: Ambulatory Orders Brimonidine Tartrate [Alphagan 0.2% -] 1 drop OU TID 08/04/18 Clonidine Patch [Catapres Tts Patch -] 0.3 mg TD WEEKLY 08/04/18 Ergocalciferol [Vitamin D2] 50,000 unit PO Q7D@1000 08/04/18 Fluticasone Prop 0.05% Nasal [Flonase -] 1 spray NS DAILY 08/04/18 Folic Acid - 1 mg PO DAILY 08/04/18 Multivitamin [One-Daily Multi-Vitamin] 1 each PO DAILY 08/04/18 Simvastatin [Zocor -] 20 mg PO HS 08/04/18 levETIRAcetam [Keppra -] 500 mg PO BID 10/02/18 Compression Socks, Medium [Futuro Restoring] 1 each MC DAILY #1 each 03/06/19 Gauze Bandage [Bandage Roll] 1 each TP DAILY #1 bandage 03/06/19 Metoprolol Tartrate [Lopressor -] 100 mg PO DAILY 03/06/19 Multivitamins [Multivit ([facility] Formulary)] 1 tab PO DAILY 30 Days #30 tab Thiamine HCl [Vitamin B1 -] 100 mg PO DAILY 30 Days #30 tablet 03/06/19 This patient is new to me today: Yes Date on this admission: 03/06/19 Emergency Visit: Yes ED Registration Date: 03/05/19 Care time: The patient presented to the Emergency Department on the above date and was hospitalized for further evaluation of their emergent condition. Critical Care patient: No - Discharge Referral Referred to [facility] Med P.C.: No ATTENDING PHYSICIAN STATEMENT I saw and evaluated the patient. I reviewed the resident's note and discussed the case with the resident. I agree with the resident's findings and plan as documented. SUBJECTIVE: OBJECTIVE: ASSESSMENT AND PLAN:
--- NOTE | 2019-03-06 15:40 | PN ---
Teaching Attending Note Name of Resident: Henry Eason ATTENDING PHYSICIAN STATEMENT I saw and evaluated the patient. I reviewed the resident's note and discussed the case with the resident. I agree with the resident's findings and plan as documented. Seen and examined; please see resident note for further historical information. I personally verified all larson historical information and exam findings. Personally interpreted all imaging and diagnostics and reviewed appropriate consults. I reviewed all labs and vital signs as per resident note and EMR as documented. I agree with the above assessment and plan unless supplemented by myself in the following. Patient has bilateral lower extremity edema with some redness that is consistent with peripheral vascular/peripheral arterial disease. He has good pulses and can follow-up outpatient for Dopplers. There is no indication for ID or vascular surgery consultation. The patient is in possession of very very mildly increased BNP and can have an outpatient echo, he is euvolemic and does not have any indication of being an active CHF. This is been an ongoing issue for him with lower extremity edema that coincides with his drinking and he was given Lasix before. He has not been taking his Lasix or any of his medications due to his alcoholism. He can be discharged back to 10 item review of systems completed and is negative aside from as discussed in the subjective data in my own/the resident documentation. VS, labs, imaging reviewed NAD, AAO, resting comfortably in bed. RRR s1/2 no mgr Normal muscle tone, moves all 5 extremities with normal apparent strength Neck is supple, trachea midline, no bria LN Lungs CTAB with sym expansion NT ND +BS no bria organomegaly CN2-12 wnl; no FND NC AT EOMI PERRLA Normal mood, appropriate behavior, euthymic affect No skin breakdown or rashes noted Agree with hospital course as outlined in the resident note, patient needs to follow-up outpatient for colonoscopy, he needs to stop drinking, and needs to resume his outpatient medications. He is not an active CHF, he should detox and then pursue the outpatient work-up including the arterial Dopplers. He can continue as needed [id number] creams for his dry skin
[2019-03-06 17:36] LABS: BASO % 0.7 % (0-2.0); EOS % 3.6 % (0-4.5); HEMATOCRIT 29.8 % (35.4-49); HEMOGLOBIN 9.7 GM/dL (11.7-16.9); LYMPH % 31.8 % (8-40); MCHC 32.6 g/dl (32.0-35.9); MEAN CELL VOLUME 95.2 fl (80-96); MEAN PLT VOLUME 7.8 fl (7.5-11.1); MONO % 16.9 % (3.8-10.2); PLATELET COUNT 200 K/MM3 (134-434); RBC 3.13 M/mm3 (4.00-5.60); RDW 16.6 % (11.9-15.9); RETICULOCYTES 1.68 % (0.5-1.5)
[2019-03-06 18:39] LABS: ALBUMIN 3.3 g/dl (3.4-5.0); BILIRUBIN,TOTAL 0.4 mg/dL (0.2-1); BLOOD UREA NITROGEN 11.6 mg/dL (7-18); CALCIUM 8.6 mg/dL (8.5-10.1); CREATININE 1.1 mg/dL (0.55-1.3); MAGNESIUM 1.6 mg/dL (1.8-2.4); PHOSPHOROUS 3.8 mg/dL (2.5-4.9); POTASSIUM 4.3 mmol/L (3.5-5.1); TOT PROT 6.9 g/dl (6.4-8.2)
[2019-03-06 18:40] VITALS: BP 159/99; PULSE 77; TEMP 97.7
[2019-03-06] MEDS ORDERED: ATORVASTATIN CA 10 MG TABLET (FP) PO SCH (22:00)
[2019-03-07] MEDS ORDERED: chlordiazePOXIDE 5 MG CAPSULE PO SCH (05:00)
[2019-03-07] MEDS ORDERED: cloNIDine-TTS 0.3 MG /24 HRS PATCH.TDWK TD SCH (10:00)
[2019-03-07] MEDS ORDERED: MULTIVITAMINS (DAILY MVI) TABLET (FP) PO SCH (10:00)
[2019-03-07] MEDS ORDERED: FLUTICASONE PROP 0.05% 16 GM NASAL SPRAY NS SCH (10:00)
[2019-03-07] MEDS ORDERED: METOPROLOL TARTRATE 50 MG TABLET (FP) PO SCH ×2 (10:00)
[2019-03-07] MEDS ORDERED: FOLIC ACID 1 MG TABLET (FP) PO SCH (10:00)
[2019-03-08] MEDS ORDERED: chlordiazePOXIDE HCL 10 MG CAPSULE PO PRN
[2019-03-08] MEDS ORDERED: chlordiazePOXIDE HCL 10 MG CAPSULE PO SCH (05:00)
[2019-03-09] MEDS ORDERED: chlordiazePOXIDE HCL 10 MG CAPSULE PO ONE (05:00)
[2019-03-13] MEDS ORDERED: cloNIDine-TTS 0.3 MG /24 HRS PATCH.TDWK TD SCH (10:00)
[2019-03-13] MEDS ORDERED: ERGOCALCIFEROL (VIT D2) 50,000 UNIT (1.25 MG) CAPSULE PO SCH (10:00)
== END 2019-03-06 22:45 | disposition short-term general hospital (02) | DRG 603 ==
LOC: JER 16:00 → JERBED 22:57
PROVIDERS: ADMIT Internal Medicine; ATTEND Internal Medicine
DX: L03.115 Cellulitis of right lower limb (principal); F10.99 Alcohol use, unspecified with unspecified alcohol-induced disorder; E46 Unspecified protein-calorie malnutrition; F10.230 Alcohol dependence with withdrawal, uncomplicated; I10 Essential (primary) hypertension; L03.116 Cellulitis of left lower limb; E78.5 Hyperlipidemia, unspecified; J42 Unspecified chronic bronchitis; G40.909 Epilepsy, unspecified, not intractable, without status epilepticus; D64.9 Anemia, unspecified; I73.9 Peripheral vascular disease, unspecified; E88.09 Other disorders of plasma-protein metabolism, not elsewhere classified; F31.9 Bipolar disorder, unspecified; Z87.891 Personal history of nicotine dependence; Z88.0 Allergy status to penicillin
CPT/HCPCS: 36415; 71046-TC-FY; 73610-TC-LT-FY; 73610-TC-RT-FY; 73630-TC-LT; 73630-TC-RT-FY; 76705-TC; 80053; 80074; 80177; 82550; 82553; 82607; 82746; 83540; 83550; 83735; 83880; 84100; 84443; 84466; 84484; 85025; 85044; 85610; 86803; 93005; 93010; 93306-TC; 93925-TC; 93970-TC; 99283-25; J7030

== ENCOUNTER 2019-03-06 18:56 | Emergency (ER) | payer OTHER ==
[2019-03-06 19:07] VITALS: TEMP 97.4; BMI 25.1
--- NOTE | 2019-03-06 19:37 | PDOC ---
Attending Attestation - Resident Resident Name: Cody Vazquez - ED Attending Attestation I have performed the following: I have examined & evaluated the patient, The case was reviewed & discussed with the resident, I agree w/resident's findings & plan - HPI HPI: 03/06/19 21:50 see resident hpi - Physicial Exam PE: 03/06/19 21:50 agree with resident exam - Medical Decision Making 03/06/19 21:50 58-year-old male discharged from the hospital and immediately brought back to the emergency department due to hypertension Case discussed with the receiving facility, to [facility] who will receive patient if systolic blood pressure is around 150 Last pressure is 153, patient has been asymptomatic since arrival Ativan 2 mg and Lopressor 25 mg given p.o.
[2019-03-06] MEDS ORDERED: METOPROLOL TARTRATE 25 MG TABLET (FP) PO ONE (19:40)
[2019-03-06] MEDS ORDERED: METOPROLOL TARTRATE 25 MG TABLET (FP) ONE (19:47)
[2019-03-06] MEDS ORDERED: LORazepam 1 MG TABLET PO ONE (19:54)
[2019-03-06] MEDS ORDERED: LORazepam 0.5 MG TABLET ONE (20:19)
[2019-03-06 20:24] VITALS: BP 153/97; PULSE 76
--- NOTE | 2019-03-06 20:42 | PDOC ---
History of Present Illness - General Chief Complaint: Blood Pressure Problem Stated Complaint: Blood Pressure Problem Time Seen by Provider: 03/06/19 19:30 History Source: Patient, Old Records Exam Limitations: No Limitations - History of Present Illness Initial Comments: HPI: 58 y/o male presenting to [facility] ER for evaluation of hypertension. Pt was discharged from this facility today and scheduled to return to [facility]. Transport EMS crew measured an elevated blood pressure before leaving the parking lot, and returned the pt to the ED. [facility] was reportedly not involved in this decision. At the time of interview, the pt denied any complaints aside from frustration that he was returned to this hospital. Denies chest pain, SOB, headache, blurry vision, or dizziness. Admitted yesterday for lower extremity swelling suspected to be secondary to venous insufficiency. Pt was started on Lasix. Medical Hx: - HTN - Seizure - EtOH Abuse w/ h/o withdrawal seizures - HLD - COPD - Bipolar disorder Review of Systems: 10 point review of systems completed. All systems negative except as noted above. Physical Examination: Vital signs and nursing notes reviewed. Constitutional- Well-developed, well-nourished adult male in no acute distress or obvious discomfort. Found semi-fowlers on hospital bed. Answered all questions appropriately and completely. Ambulating with cane. Head- Normocephalic. No obvious external signs of trauma. Neck- Supple, trachea is midline. Cardiovascular / Chest- Regular rate and regular rhythm. No murmur, rubs, clicks , or gallops. Peripheral pulses- radial pulses full. 1+ bilateral pretibial edema. Respiratory- Breathing unlabored. Equal chest rise and fall. Clear to auscultation bilaterally. No stridor, no wheezing, no rhonchi. Gastrointestinal- abdomen is soft, non-tender, non-distended. Neuro- Alert and oriented x4. Moving all four extremities spontaneously. Non tremulous. Skin- Warm, dry, and intact. Psych- Affect- appropriate. Mood- normal. Speech was non-labored, non- pressured. MDM: 58 y/o male presenting with elevated blood pressure in setting of known h/o HTN. Afebrile. Vitals unremarkable for hypotension or tachycardia. Physical exam as described above. Suspect likely asymptomatic hypertension. Low suspicion for EtOH withdrawal as pt is non tremulous and not tachycardic. No treatment indicated. Will discuss with [facility] INTERNATIONAL SPECIALIST. 06 Mar 2019 19:53 PM Telephone conversation with INTERNATIONAL SPECIALIST Ministerio at [facility]. Stated her written protocol stipulated that a pts BP needed to be in the 150s systolic in order to be accepted. Ordered Ativan and Lopressor. Repeat BP in 150s systolic. Will not attempt further reduction. 06 Mar 2019 20:38 PM Telephone conversation with INTERNATIONAL SPECIALIST Ministerio. Reported updated vitals and medications given in the ED. She will accept the transfer. Cody Vazquez M.D., PGY2 Emergency Medicine Resident Past History - Past Medical History Allergies/Adverse Reactions: Allergies Allergy/AdvReac Type Severity Reaction Status Date / Time penicillin G Allergy Verified 03/05/19 13:12 Penicillins Allergy Verified 03/05/19 13:12 Home Medications: Ambulatory Orders Brimonidine Tartrate [Alphagan 0.2% -] 1 drop OU TID 08/04/18 Clonidine Patch [Catapres Tts Patch -] 0.3 mg TD WEEKLY 08/04/18 Ergocalciferol [Vitamin D2] 50,000 unit PO Q7D@1000 08/04/18 Fluticasone Prop 0.05% Nasal [Flonase -] 1 spray NS DAILY 08/04/18 Folic Acid - 1 mg PO DAILY 08/04/18 Multivitamin [One-Daily Multi-Vitamin] 1 each PO DAILY 08/04/18 Simvastatin [Zocor -] 20 mg PO HS 08/04/18 levETIRAcetam [Keppra -] 500 mg PO BID 10/02/18 Compression Socks, Medium [Futuro Restoring] 1 each MC DAILY #1 each 03/06/19 Furosemide [Lasix] 20 mg PO DAILY #30 tablet 03/06/19 Gauze Bandage [Bandage Roll] 1 each TP DAILY #1 bandage 03/06/19 Metoprolol Tartrate [Lopressor -] 100 mg PO DAILY 03/06/19 Mineral Oil/Pet Hy-Phl [Aquaphor] 1 applic TP DAILY #1 jar 03/06/19 Multivitamins [Multivit ([facility] Formulary)] 1 tab PO DAILY 30 Days #30 tab Thiamine HCl [Vitamin B1 -] 100 mg PO DAILY 30 Days #30 tablet 03/06/19 Asthma: No Cardiac Disorders: No COPD: Yes (chronic bronchitis) Diabetes: No GI Disorders: No Disorders: No HTN: Yes Kidney Stones: No Seizures: Yes (last 1 week ago on meds.) - Surgical History Abdominal Surgery: No Appendectomy: No Cardiac Surgery: No Cholecystectomy: No Lung Surgery: No Neurologic Surgery: No Orthopedic Surgery: Yes - Reproductive History Testicular Surgery: No - Psycho Social/Smoking Cessation Hx Smoking History: Unknown if ever smoked Have you smoked in the past 12 months: No Hx Alcohol Use: Yes Drug/Substance Use Hx: Yes Hx Substance Use Treatment: Yes *Physical Exam - Vital Signs Last Vital Signs Temp Pulse Resp BP Pulse Ox 97.4 F L 76 18 153/97 100 03/06/19 19:05 03/06/19 20:24 03/06/19 20:24 03/06/19 20:24 03/06/19 20:24 ED Treatment Course - Medications Given in the ED: ED Medications Discontinued Medications Generic Name Dose Route Start Last Admin Trade Name Stas PRN Reason Stop Dose Admin Lorazepam 2 mg 03/06/19 19:54 03/06/19 20:24 Ativan - PO 03/06/19 19:55 2 mg ONCE ONE Administration Metoprolol Tartrate 25 mg 03/06/19 19:40 03/06/19 19:54 Lopressor - PO 03/06/19 19:41 25 mg ONCE ONE Administration Discharge - Discharge Information Problems reviewed: Yes Clinical Impression/Diagnosis: Asymptomatic hypertension Condition: Good Disposition: HOME - Admission No - Follow up/Referral Referrals: Edmond Orellana DO [Primary Care Provider] - - Patient Discharge Instructions Patient Printed Discharge Instructions: DI for High Blood Pressure Additional Instructions: You were seen for an elevated blood pressure in setting of known history of hypertension. You were given Ativan and Lopressor in the ED, and your BP improved. You are being discharged back to [facility] for further evaluation and alcohol detox. Best of luck at [facility]! Follow up with the physicians at [facility] regarding your blood pressure. Print Language: AZERI - Post Discharge Activity
== END 2019-03-06 22:45 | disposition short-term general hospital (02) ==
LOC: JER 18:56
DX: I10 Essential (primary) hypertension (principal); Z88.0 Allergy status to penicillin
CPT/HCPCS: 99282-25

== ENCOUNTER 2019-03-06 23:13 | Inpatient (IN) | payer OTHER ==
[2019-03-07 00:14] VITALS: BMI 25.1
--- NOTE | 2019-03-07 01:35 | HP ---
CIWA Score Nausea/Vomitin-Mild Nausea/No Vomiting Muscle Tremors: 3 Anxiety: 4-Mod. Anxious/Guarded Agitation: 3 Paroxysmal Sweats: 2 Orientation: 0-Oriented Tacttile Disturbances: 0-None Auditory Disturbances: 0-None Visual Disturbances: 0-None Headache: 0-None Present CIWA-Ar Total Score: 13 - Admission Criteria OASAS Guidelines: Admission for Medically Managed Detox: Requires at least one of the followin. CIWA greater than 12 2. Seizures within the past 24 hours 3. Delirium tremens within the past 24 hours 4. Hallucinations within the past 24 hours 5. Acute intervention needed for co occurring medical disorder 6. Acute intervention needed for co occurring psychiatric disorder 7. Severe withdrawal that cannot be handled at a lower level of care (continued vomiting, continued diarrhea, abnormal vital signs) requiring intravenous medication and/or fluids 8. Admitting History and Physical - Smoking History Smoking history: Unknown if ever smoked Have you smoked in the past 12 months: No - Alcohol/Substance Use Hx Alcohol Use: Yes Admission ROS [facility] - [facility] Chief Complaint: Alcohol withdrawal symptoms Allergies/Adverse Reactions: Allergies Allergy/AdvReac Type Severity Reaction Status Date / Time penicillin G Allergy Verified 03/06/19 23:54 Penicillins Allergy Verified 03/06/19 23:54 History of Present Illness: Received 58 years old male with a long history of alcohol dependence from ER seeking admission to detox. Patient has been admitted previously to detox and reports insignificant period of sobriety. He has medical history of Hypertension , hyperlipidemia, Venous insufficiency, seizure disorder, COPD, chronic bronchitis and psych. history of PTSD and bipolar disorder. Patient is noted with bilateral lower extremities swelling and dry skin. He denies suicidal ideation at this time - Ebola screening Have you traveled outside of the country in the last 21 days: No (N) Have you had contact with anyone from an Ebola affected area: No Do you have a fever: No - Review of Systems Constitutional: Malaise, Night Sweats, Changes in sleep EENT: reports: No Symptoms Reported Respiratory: reports: No Symptoms reported Cardiac: reports: No Symptoms Reported GI: reports: Nausea, Poor Appetite, Poor Fluid Intake, Abdominal cramping : reports: No Symptoms Reported Musculoskeletal: reports: Joint Pain (bilateral knees) Integumentary: reports: Dryness, Flushing, Other (dry skin) Neuro: reports: Headache, Tremors Endocrine: reports: No Symptoms Reported Hematology: reports: No Symptoms Reported Psychiatric: reports: Mood/Affect Appropiate, Orientated x3, Anxious Other Systems: Reviewed and Negative Patient History - Patient Medical History Hx Anemia: No Hx Asthma: No Hx Chronic Obstructive Pulmonary Disease (COPD): Yes (chronic bronchitis) Hx Cancer: No Hx Cardiac Disorders: No Hx Congestive Heart Failure: No Hx Hypertension: Yes Hx Hypercholesterolemia: Yes Hx Pacemaker: No HX Cerebrovascular Accident: No Hx Seizures: Yes (last 1 week ago on meds.) Hx Dementia: No Hx Diabetes: No Hx Gastrointestinal Disorders: No Hx Liver Disease: No Hx Genitourinary Disorders: No Hx Sexually Transmitted Disorders: No Hx Renal Disease (ESRD): No Hx Thyroid Disease: No Hx Human Immunodeficiency Virus (HIV): No (Negative 2018) Hx Depression: Yes Hx Suicide Attempt: No (Denies suicidal ideation at this time) Hx Schizophrenia: No - Patient Surgical History Past Surgical History: Yes Hx Neurologic Surgery: No Hx Cataract Extraction: No Hx Cardiac Surgery: No Hx Lung Surgery: No Hx Abdominal Surgery: No Hx Appendectomy: No Hx Cholecystectomy: No Hx Genitourinary Surgery: No Hx Section: No Hx Orthopedic Surgery: Yes Other Surgical History: L eye sx x2 from trauma. Anesthesia Reaction: No - PPD History Previous Implant?: Yes (PPD POSITIVE) Documented Results: Positive w/o proof Implanted On Prior [facility] Admission?: No PPD to be Administered?: No - Reproductive History Patient is a Female of Child Bearing Age (11 -55 yrs old): No (male) - Smoking Cessation Smoking history: Unknown if ever smoked Have you smoked in the past 12 months: No Hx Chewing Tobacco Use: No Initiated information on smoking cessation: No - Substance & Tx. History Hx Alcohol Use: Yes Hx Substance Use: No Substance Use Type: Alcohol Hx Substance Use Treatment: Yes ([facility]) - Substances abused Alcohol Substance route: Oral Frequency: Daily Amount used: half of vodka/ 3 24 ounces Age of first use: 13 Date of last use: 03/05/19 Admission Physical Exam [facility] - Vital Signs Vital Signs: Vital Signs - 24 hr 03/06/19 03/07/19 23:53 00:44 Temperature 97 F L 97 F L Pulse Rate 69 69 Respiratory 18 18 Rate Blood Pressure 127/107 H 127/107 H - Physical General Appearance: Yes: Moderate Distress, Tremorous, Anxious HEENTM: Yes: Within Normal Limits Respiratory: Yes: Lungs Clear, Normal Breath Sounds, No Respiratory Distress Neck: Yes: Within Normal Limits Breast: Yes: Within Normal Limits Cardiology: Yes: Within Normal Limits Abdominal: Yes: Normal Bowel Sounds Genitourinary: Yes: Within Normal Limits Back: Yes: Normal Inspection Musculoskeletal: Yes: Within Normal Limits Extremities: Yes: Normal Inspection Neurological: Yes: Within Normal Limits Integumentary: Yes: Warm Lymphatic: Yes: Within Normal Limits - Addiitonal Findings: bilateral leg swelling - Diagnostic (1) Venous insufficiency Current Visit: Yes Status: Chronic (2) COPD (chronic obstructive pulmonary disease) Current Visit: Yes Status: Chronic (3) Bronchitis Current Visit: Yes Status: Chronic (4) Bilateral lower leg cellulitis Current Visit: Yes Status: Chronic (5) Alcohol dependence with uncomplicated withdrawal Current Visit: No Status: Chronic (6) HTN (hypertension) Current Visit: Yes Status: Acute (7) Seizure disorder Current Visit: Yes Status: Chronic Cleared for Admission [facility] - Detox or Rehab [facility] Level of Care: Medically Managed Detox Regimen/Protocol: Librium Claeared for Rehab Admission: No Breathalyzer - Breathalyzer Breathalyzer: 0.002 Urine Drug Screen - Test Device Lot number: [id number] Expiration date: 09/13/20 - Control Is test valid?: Yes - Results Drug screen NEGATIVE: No Urine drug screen results: BZO-Benzodiazepines Inpatient Rehab Admission - Rehab Decision to Admit Inpatient rehab admission?: No
[2019-03-07] MEDS ORDERED: MAG HYDROX/AL HYDROX/SIMETH 30 ML UNIT-DOSE CUP PO PRN (01:59)
[2019-03-07] MEDS ORDERED: BISMUTH SUBSALICYLATE 524 MG/30 ML UD PO PRN (01:59)
[2019-03-07] MEDS ORDERED: chlordiazePOXIDE HCL 25 MG CAPSULE PO PRN (01:59)
[2019-03-07] MEDS ORDERED: MAGNESIUM CITRATE 300 ML BOTTLE PO PRN (01:59)
[2019-03-07] MEDS ORDERED: MAGNESIUM HYDROX 2400MG/30ML ORAL SUSPENSION 30 ML CUP PO PRN (01:59)
[2019-03-07] MEDS ORDERED: ACETAMINOPHEN 325 MG TABLET (FP) PO PRN ×2 (01:59)
[2019-03-07] MEDS ORDERED: MENTHOL/PHENOL 1 EACH UD MM PRN (01:59)
[2019-03-07] MEDS ORDERED: cloNIDine HCL 0.1 MG TABLET PO ONE ×2 (02:57→17:15)
[2019-03-07] MEDS: chlordiazePOXIDE HCL 25 MG CAPSULE PO SCH ×4 (06:00→22:28)
--- NOTE | 2019-03-07 09:34 | PN ---
[facility] CIWA - CIWA Score Nausea/Vomitin-Mild Nausea/No Vomiting Muscle Tremors: 2 Anxiety: 2 Agitation: 3 Paroxysmal Sweats: 2 Orientation: 0-Oriented Tacttile Disturbances: 0-None Auditory Disturbances: 0-None Visual Disturbances: 1-Very Mild Sensitivity Headache: 0-None Present CIWA-Ar Total Score: 11 S Progress Note (SOAP) Subjective: 58 years old male admitted on 03/07/19 for alcohol withdrawal sx management treating with librium detox regiment feeling ok today sitting on the edge of the bed speech clearly alert encourage to attend behavior and psychosocial therapies groups and meetings while in detox Objective: 03/07/19 09:54 Vital Signs Temperature 96.8 F L 03/07/19 09:09 Pulse Rate 63 03/07/19 09:09 Respiratory Rate 16 03/07/19 09:09 Blood Pressure 170/100 03/07/19 09:09 O2 Sat by Pulse Oximetry (%) 03/07/19 09:54 lab pending 03/07/19 09:59 patient will received metoprolol 100 mg po and librium 50mg po 03/07/19 10:00 Assessment: 03/07/19 10:02 alcohol withdrawal hypertension chf Plan: librium regiment
[2019-03-07] MEDS ORDERED: ERGOCALCIFEROL (VIT D2) 50,000 UNIT (1.25 MG) CAPSULE PO SCH (10:00)
[2019-03-07] MEDS: FLUTICASONE PROP 0.05% 16 GM NASAL SPRAY NS SCH (10:27)
[2019-03-07] MEDS: FUROSEMIDE 20 MG TABLET (FP) PO SCH (10:28)
[2019-03-07] MEDS: PRENATAL VITAMINS W/ FOLIC ACID TABLET (FP) PO SCH (10:28)
[2019-03-07] MEDS: METOPROLOL TARTRATE 50 MG TABLET (FP) PO SCH (10:28)
[2019-03-07] MEDS: levETIRAcetam 500 MG TABLET (FP) PO SCH ×2 (10:28→22:28)
--- NOTE | 2019-03-07 10:29 | EKG ---
Test Reason : Blood Pressure : / mmHG Vent. Rate : 058 BPM Atrial Rate : 058 BPM P-R Int : 130 ms QRS Dur : 096 ms QT Int : 474 ms P-R-T Axes : 051 019 030 degrees QTc Int : 465 ms SINUS BRADYCARDIA OTHERWISE NORMAL ECG WHEN COMPARED WITH ECG OF 05-MAR-2019 19:21, NO SIGNIFICANT CHANGE WAS FOUND Confirmed by KACI GARRETT MD ([id number]) on 03/07/2019 10:29:34 AM Referred By: Edmond Orellana Confirmed By:KACI GARRETT MD
--- NOTE | 2019-03-07 16:53 | PN ---
S Progress Note Note: Patient's blood pressure is B/P 189/105. Patient is asymptomatic Vital Signs Temperature 96.4 F L 03/07/19 13:36 Pulse Rate 65 03/07/19 13:36 Respiratory Rate 18 03/07/19 13:36 Blood Pressure 189/105 H 03/07/19 16:41 O2 Sat by Pulse Oximetry (%) Action: Clonidine 0.1mg tablet oral ordered
[2019-03-07] MEDS: MINERAL OIL/PET HY-PHL TOPICAL OINTMENT 454 GM JAR TP SCH (17:29)
[2019-03-07] MEDS: THIAMINE HCL 100 MG TABLET (FP) PO SCH (22:28)
[2019-03-07] MEDS: ATORVASTATIN CA 10 MG TABLET (FP) PO SCH (22:28)
[2019-03-07] MEDS: BRIMONIDINE TARTRATE 0.2% OPHTHALMIC 5 ML BOTTLE OU SCH (22:28)
[2019-03-07] MEDS: MELATONIN 5 MG TABLETS PO PRN (22:29)
[2019-03-07] MEDS: METHOCARBAMOL 500 MG TABLET PO PRN (22:29)
[2019-03-08] MEDS: chlordiazePOXIDE HCL 25 MG CAPSULE PO SCH ×4 (05:25→22:18)
[2019-03-08] MEDS ORDERED: cloNIDine-TTS 0.3 MG /24 HRS PATCH.TDWK TD SCH (07:26)
[2019-03-08] MEDS ORDERED: cloNIDine HCL 0.1 MG TABLET PO ONE ×2 (07:30→19:13)
--- NOTE | 2019-03-08 07:32 | PN ---
[facility] Progress Note Note: Patient's blood pressure was B/P 196/101. Patient is asymptomatic Vital Signs Temperature 97.1 F L 03/08/19 07:02 Pulse Rate 62 03/08/19 07:02 Respiratory Rate 18 03/08/19 07:02 Blood Pressure 196/101 H 03/08/19 07:02 O2 Sat by Pulse Oximetry (%) Action: Clonidine 0.1mg tablet oral ordered
[2019-03-08] MEDS: MINERAL OIL/PET HY-PHL TOPICAL OINTMENT 454 GM JAR TP SCH (10:10)
[2019-03-08] MEDS: FLUTICASONE PROP 0.05% 16 GM NASAL SPRAY NS SCH (10:11)
[2019-03-08] MEDS: FUROSEMIDE 20 MG TABLET (FP) PO SCH (10:11)
[2019-03-08] MEDS: PRENATAL VITAMINS W/ FOLIC ACID TABLET (FP) PO SCH (10:11)
[2019-03-08] MEDS: levETIRAcetam 500 MG TABLET (FP) PO SCH ×2 (10:11→22:19)
--- NOTE | 2019-03-08 10:12 | PN ---
S CIWA - CIWA Score Nausea/Vomitin-No Nausea/No Vomiting Muscle Tremors: 3 Anxiety: 3 Agitation: 1-Slight > Activity Paroxysmal Sweats: 2 Orientation: 0-Oriented Tacttile Disturbances: 0-None Auditory Disturbances: 0-None Visual Disturbances: 0-None Headache: 0-None Present CIWA-Ar Total Score: 9 BHS Progress Note (SOAP) Subjective: 58 years old male admitted on 03/07/19 for alcohol withdrawal sx management treating with librium detox regiments has long history of hypertension treated with clonidine 0.3mg patch every 7 days discontinue metoprolol begin amlodipine 10 mg po daily Objective: 03/08/19 10:14 Vital Signs Temperature 96.6 F L 03/08/19 09:13 Pulse Rate 56 L 03/08/19 09:13 Respiratory Rate 18 03/08/19 09:13 Blood Pressure 153/92 03/08/19 09:13 O2 Sat by Pulse Oximetry (%) lab pending Assessment: 03/08/19 10:15 alcohol withdrawal hypertension Plan: valium regiment amlodipine 10 mg po daily
[2019-03-08 10:26] LABS: HEMATOCRIT 27.4 % (35.4-49); HEMOGLOBIN 9.2 GM/dL (11.7-16.9); MCH 31.6 pg (25.7-33.7); MCHC 33.5 g/dl (32.0-35.9); MEAN CELL VOLUME 94.2 fl (80-96); MEAN PLT VOLUME 7.7 fl (7.5-11.1); PLATELET COUNT 238 K/MM3 (134-434); RBC 2.91 M/mm3 (4.00-5.60); RDW 16.5 % (11.9-15.9); WHITE BLOOD COUNT 2.9 K/mm3 (4.0-10.0)
[2019-03-08 10:28] LABS: ALBUMIN 3.1 g/dl (3.4-5.0); BILIRUBIN,TOTAL 0.3 mg/dL (0.2-1); BLOOD UREA NITROGEN 12.6 mg/dL (7-18); CALCIUM 8.8 mg/dL (8.5-10.1); TOT PROT 6.5 g/dl (6.4-8.2)
[2019-03-08] MEDS: amLODIPine BESYLATE 10 MG TABLET (FP) PO SCH (10:32)
[2019-03-08] MEDS: METOPROLOL TARTRATE 50 MG TABLET (FP) PO SCH (10:33)
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
[2019-03-08] MEDS ORDERED: METOPROLOL TARTRATE 50 MG TABLET (FP) PO ONE (17:45)
--- NOTE | 2019-03-08 17:48 | PN ---
S Progress Note Note: called by nursing for pt elevated BP . pt ambulatory , denies symptoms . Vital Signs - 24 hr 03/07/19 03/08/19 03/08/19 21:23 00:26 07:02 Temperature 97.4 F L 97.1 F L Pulse Rate 71 62 Respiratory 18 18 18 Rate Blood Pressure 169/101 H 190/99 H 03/08/19 03/08/19 03/08/19 07:34 09:13 13:32 Temperature 96.6 F L 96.4 F L Pulse Rate 50 L 56 L 67 Respiratory 18 18 18 Rate Blood Pressure 196/101 H 153/92 160/82 03/08/19 17:06 Temperature 96.3 F L Pulse Rate 66 Respiratory 18 Rate Blood Pressure 174/107 H per hospital notes, pt on metoprolol 100 mg daily , per med summary metoprolol 50 mg . pt was given metoprolol 25 mg in ER yesterday . P : Metoprolol 50 mg x once and BP re-check in 1 hr Vital Signs - 24 hr 03/07/19 03/08/19 03/08/19 21:23 00:26 07:02 Temperature 97.4 F L 97.1 F L Pulse Rate 71 62 Respiratory 18 18 18 Rate Blood Pressure 169/101 H 190/99 H 03/08/19 03/08/19 03/08/19 07:34 09:13 13:32 Temperature 96.6 F L 96.4 F L Pulse Rate 50 L 56 L 67 Respiratory 18 18 18 Rate Blood Pressure 196/101 H 153/92 160/82 03/08/19 17:06 Temperature 96.3 F L Pulse Rate 66 Respiratory 18 Rate Blood Pressure 174/107 H BP recheck 177/986 P 68 add Clonidine 0.3 mg x once.
[2019-03-08] MEDS: THIAMINE HCL 100 MG TABLET (FP) PO SCH (22:18)
[2019-03-08] MEDS: ATORVASTATIN CA 10 MG TABLET (FP) PO SCH (22:18)
[2019-03-08] MEDS: BRIMONIDINE TARTRATE 0.2% OPHTHALMIC 5 ML BOTTLE OU SCH (22:18)
[2019-03-08] MEDS: MELATONIN 5 MG TABLETS PO PRN (22:19)
[2019-03-08] MEDS: METHOCARBAMOL 500 MG TABLET PO PRN (22:19)
[2019-03-09] MEDS ORDERED: chlordiazePOXIDE HCL 10 MG CAPSULE PO PRN
[2019-03-09] MEDS: chlordiazePOXIDE HCL 10 MG CAPSULE PO SCH ×4 (05:48→22:38)
[2019-03-09] MEDS ORDERED: cloNIDine-TTS 0.3 MG /24 HRS PATCH.TDWK TD SCH (10:00)
[2019-03-09] MEDS: amLODIPine BESYLATE 10 MG TABLET (FP) PO SCH (10:28)
[2019-03-09] MEDS: FUROSEMIDE 20 MG TABLET (FP) PO SCH (10:28)
[2019-03-09] MEDS: PRENATAL VITAMINS W/ FOLIC ACID TABLET (FP) PO SCH (10:28)
[2019-03-09] MEDS: levETIRAcetam 500 MG TABLET (FP) PO SCH ×2 (10:28→22:38)
[2019-03-09] MEDS: FLUTICASONE PROP 0.05% 16 GM NASAL SPRAY NS SCH (10:29)
[2019-03-09] MEDS: MINERAL OIL/PET HY-PHL TOPICAL OINTMENT 454 GM JAR TP SCH (10:31)
--- NOTE | 2019-03-09 12:47 | PN ---
S CIWA - CIWA Score Nausea/Vomitin-No Nausea/No Vomiting Muscle Tremors: 2 Anxiety: 2 Agitation: 0-Normal Activity Paroxysmal Sweats: 2 Orientation: 0-Oriented Tacttile Disturbances: 1-Very Mild Itch/Numbness Auditory Disturbances: 0-None Visual Disturbances: 1-Very Mild Sensitivity Headache: 0-None Present CIWA-Ar Total Score: 8 BHS Progress Note (SOAP) Subjective: Patient is a 58 year old male with hx of alcohol dependence on librium detox protocol c/o of interrupted sleep, chills and feelign anxious. Denies chest pain , vertigo or parethsia. Objective: 03/09/19 12:46 Vital Signs Temperature 97.2 F L 03/09/19 09:15 Pulse Rate 87 03/09/19 09:15 Respiratory Rate 18 03/09/19 09:15 Blood Pressure 150/97 03/09/19 09:15 O2 Sat by Pulse Oximetry (%) Laboratory Last Values WBC 2.9 K/mm3 (4.0-10.0) L 03/08/19 08:00 RBC 2.91 M/mm3 (4.00-5.60) L 03/08/19 08:00 Hgb 9.2 GM/dL (11.7-16.9) L 03/08/19 08:00 Hct 27.4 % (35.4-49) L 03/08/19 08:00 MCV 94.2 fl (80-96) 03/08/19 08:00 MCH 31.6 pg (25.7-33.7) 03/08/19 08:00 MCHC 33.5 g/dl (32.0-35.9) 03/08/19 08:00 RDW 16.5 % (11.9-15.9) H 03/08/19 08:00 Plt Count 238 K/MM3 (134-434) 03/08/19 08:00 MPV 7.7 fl (7.5-11.1) 03/08/19 08:00 Sodium 140 mmol/L (136-145) 03/08/19 08:00 Potassium 4.0 mmol/L (3.5-5.1) 03/08/19 08:00 Chloride 105 mmol/L (98-107) 03/08/19 08:00 Carbon Dioxide 29 mmol/L (21-32) 03/08/19 08:00 Anion Gap 6 MMOL/L (8-16) L 03/08/19 08:00 BUN 12.6 mg/dL (7-18) 03/08/19 08:00 Creatinine 1.0 mg/dL (0.55-1.3) 03/08/19 08:00 Est GFR (CKD-EPI)AfAm 95.73 03/08/19 08:00 Est GFR (CKD-EPI)NonAf 82.60 03/08/19 08:00 Random Glucose 80 mg/dL (74-106) 03/08/19 08:00 Calcium 8.8 mg/dL (8.5-10.1) 03/08/19 08:00 Total Bilirubin 0.3 mg/dL (0.2-1) 03/08/19 08:00 AST 32 U/L (15-37) 03/08/19 08:00 ALT 29 U/L (13-61) 03/08/19 08:00 Alkaline Phosphatase 84 U/L (45-117) 03/08/19 08:00 Total Protein 6.5 g/dl (6.4-8.2) 03/08/19 08:00 Albumin 3.1 g/dl (3.4-5.0) L 03/08/19 08:00 RPR Titer Nonreactive (NONREACTIVE) 03/08/19 08:00 Assessment: 03/09/19 14:11 Patient Aox3 no acute distress EENT WNL, + strabismus + bilateral lower extremity edema, non pitting full ROM ambulating in the unit with rolling walker withdrawal sx 03/09/19 14:12 Plan: Increase fluids continue detox compression stockings prn for leg edema continue to monitor
[2019-03-09] MEDS: ATORVASTATIN CA 10 MG TABLET (FP) PO SCH (22:38)
[2019-03-09] MEDS: THIAMINE HCL 100 MG TABLET (FP) PO SCH (22:38)
[2019-03-09] MEDS: IBUPROFEN 400 MG TABLET (FP) PO PRN (22:43)
[2019-03-09] MEDS: BRIMONIDINE TARTRATE 0.2% OPHTHALMIC 5 ML BOTTLE OU SCH (23:07)
[2019-03-10] MEDS: chlordiazePOXIDE HCL 10 MG CAPSULE PO SCH ×2 (05:28→17:30)
[2019-03-10] MEDS: PRENATAL VITAMINS W/ FOLIC ACID TABLET (FP) PO SCH (10:10)
[2019-03-10] MEDS: FUROSEMIDE 20 MG TABLET (FP) PO SCH (10:10)
[2019-03-10] MEDS: levETIRAcetam 500 MG TABLET (FP) PO SCH ×2 (10:10→22:52)
[2019-03-10] MEDS: amLODIPine BESYLATE 10 MG TABLET (FP) PO SCH (10:10)
[2019-03-10] MEDS: FLUTICASONE PROP 0.05% 16 GM NASAL SPRAY NS SCH (10:10)
[2019-03-10] MEDS: [UNRECOGNIZED DRUG - OTHER] MC SCH ×2 (10:12→18:45)
[2019-03-10] MEDS: MINERAL OIL/PET HY-PHL TOPICAL OINTMENT 454 GM JAR TP SCH (10:12)
--- NOTE | 2019-03-10 10:43 | PN ---
[facility] CIWA - CIWA Score Nausea/Vomitin-No Nausea/No Vomiting Muscle Tremors: None Anxiety: 2 Agitation: 0-Normal Activity Paroxysmal Sweats: 2 Orientation: 0-Oriented Tacttile Disturbances: 0-None Auditory Disturbances: 0-None Visual Disturbances: 0-None Headache: 0-None Present CIWA-Ar Total Score: 4 BHS Progress Note (SOAP) Subjective: c/o mild withdrawal symptoms. Objective: 03/10/19 10:42 Vital Signs 03/10/19 03/10/19 03/10/19 03:30 06:19 09:07 Temperature 97.8 F 98.0 F Pulse Rate 68 85 Respiratory 18 18 16 Rate Blood Pressure 155/91 143/96 Laboratory Last Values WBC 2.9 K/mm3 (4.0-10.0) L 03/08/19 08:00 RBC 2.91 M/mm3 (4.00-5.60) L 03/08/19 08:00 Hgb 9.2 GM/dL (11.7-16.9) L 03/08/19 08:00 Hct 27.4 % (35.4-49) L 03/08/19 08:00 MCV 94.2 fl (80-96) 03/08/19 08:00 MCH 31.6 pg (25.7-33.7) 03/08/19 08:00 MCHC 33.5 g/dl (32.0-35.9) 03/08/19 08:00 RDW 16.5 % (11.9-15.9) H 03/08/19 08:00 Plt Count 238 K/MM3 (134-434) 03/08/19 08:00 MPV 7.7 fl (7.5-11.1) 03/08/19 08:00 Sodium 140 mmol/L (136-145) 03/08/19 08:00 Potassium 4.0 mmol/L (3.5-5.1) 03/08/19 08:00 Chloride 105 mmol/L (98-107) 03/08/19 08:00 Carbon Dioxide 29 mmol/L (21-32) 03/08/19 08:00 Anion Gap 6 MMOL/L (8-16) L 03/08/19 08:00 BUN 12.6 mg/dL (7-18) 03/08/19 08:00 Creatinine 1.0 mg/dL (0.55-1.3) 03/08/19 08:00 Est GFR (CKD-EPI)AfAm 95.73 03/08/19 08:00 Est GFR (CKD-EPI)NonAf 82.60 03/08/19 08:00 Random Glucose 80 mg/dL (74-106) 03/08/19 08:00 Calcium 8.8 mg/dL (8.5-10.1) 03/08/19 08:00 Total Bilirubin 0.3 mg/dL (0.2-1) 03/08/19 08:00 AST 32 U/L (15-37) 03/08/19 08:00 ALT 29 U/L (13-61) 03/08/19 08:00 Alkaline Phosphatase 84 U/L (45-117) 03/08/19 08:00 Total Protein 6.5 g/dl (6.4-8.2) 03/08/19 08:00 Albumin 3.1 g/dl (3.4-5.0) L 03/08/19 08:00 RPR Titer Nonreactive (NONREACTIVE) 03/08/19 08:00 Labs noted. Assessment: 03/10/19 10:42 AOX3, in no acute respiratory distress. Full ROM, ambulating in the unit. For d/c tomorrow. Mild Withdrawal symptoms. 03/10/19 10:42 Plan: continue detox. D/C in AM.
[2019-03-10] MEDS: IBUPROFEN 400 MG TABLET (FP) PO PRN (22:51)
[2019-03-10] MEDS: BRIMONIDINE TARTRATE 0.2% OPHTHALMIC 5 ML BOTTLE OU SCH (22:52)
[2019-03-10] MEDS: MELATONIN 5 MG TABLETS PO PRN (22:52)
[2019-03-10] MEDS: ATORVASTATIN CA 10 MG TABLET (FP) PO SCH (22:52)
[2019-03-10] MEDS: THIAMINE HCL 100 MG TABLET (FP) PO SCH (22:53)
[2019-03-11] MEDS ORDERED: chlordiazePOXIDE HCL 10 MG CAPSULE PO ONE (05:00)
[2019-03-11 06:38] VITALS: BP 139/91
[2019-03-11 09:21] VITALS: PULSE 79; TEMP 97.3
--- NOTE | 2019-03-11 09:57 | DS ---
[facility] Detox Discharge Summary Admission Date: 03/07/19 Discharge Date: 03/11/19 - History Present History: Alcohol Dependence Additional Comments: 58 years old male admitted on 03/07/19 for alcohol withdrawal sx management treated with librium detox regimen patient has completed librium regimen and tolerated well alert oriented x 3 seen by psychiatrist continue melantonin for insomnia respiratory clear lungs bilaterally on auscultation abdomen soft no rebound tenderness skin warm and dry - Physical Exam Results Vital Signs: Vital Signs Temperature 97.3 F L 03/11/19 09:21 Pulse Rate 79 03/11/19 09:21 Respiratory Rate 18 03/11/19 09:21 Blood Pressure 139/91 03/11/19 09:21 O2 Sat by Pulse Oximetry (%) Pertinent Admission Physical Exam Findings: alcohol withdrawal Laboratory Last Values WBC 2.9 K/mm3 (4.0-10.0) L 03/08/19 08:00 RBC 2.91 M/mm3 (4.00-5.60) L 03/08/19 08:00 Hgb 9.2 GM/dL (11.7-16.9) L 03/08/19 08:00 Hct 27.4 % (35.4-49) L 03/08/19 08:00 MCV 94.2 fl (80-96) 03/08/19 08:00 MCH 31.6 pg (25.7-33.7) 03/08/19 08:00 MCHC 33.5 g/dl (32.0-35.9) 03/08/19 08:00 RDW 16.5 % (11.9-15.9) H 03/08/19 08:00 Plt Count 238 K/MM3 (134-434) 03/08/19 08:00 MPV 7.7 fl (7.5-11.1) 03/08/19 08:00 Sodium 140 mmol/L (136-145) 03/08/19 08:00 Potassium 4.0 mmol/L (3.5-5.1) 03/08/19 08:00 Chloride 105 mmol/L (98-107) 03/08/19 08:00 Carbon Dioxide 29 mmol/L (21-32) 03/08/19 08:00 Anion Gap 6 MMOL/L (8-16) L 03/08/19 08:00 BUN 12.6 mg/dL (7-18) 03/08/19 08:00 Creatinine 1.0 mg/dL (0.55-1.3) 03/08/19 08:00 Est GFR (CKD-EPI)AfAm 95.73 03/08/19 08:00 Est GFR (CKD-EPI)NonAf 82.60 03/08/19 08:00 Random Glucose 80 mg/dL (74-106) 03/08/19 08:00 Calcium 8.8 mg/dL (8.5-10.1) 03/08/19 08:00 Total Bilirubin 0.3 mg/dL (0.2-1) 03/08/19 08:00 AST 32 U/L (15-37) 03/08/19 08:00 ALT 29 U/L (13-61) 03/08/19 08:00 Alkaline Phosphatase 84 U/L (45-117) 03/08/19 08:00 Total Protein 6.5 g/dl (6.4-8.2) 03/08/19 08:00 Albumin 3.1 g/dl (3.4-5.0) L 03/08/19 08:00 RPR Titer Nonreactive (NONREACTIVE) 03/08/19 08:00 lab noted long history of leukopenia asymptomatic patient will follow up with [facility] chemical dependent out patient clinic - Treatment Hospital Course: Detox Protocol Followed, Detoxed Safely, Responded well, Discharged Condition Good, Rehab Referral Accepted Patient has Accepted a Rehab Referral to: [facility] chemical dependent out patient - Medication Discharge Medications: Ambulatory Orders Brimonidine Tartrate [Alphagan 0.2% -] 1 drop OU TID 08/04/18 Clonidine Patch [Catapres Tts Patch -] 0.3 mg TD DAILY 08/04/18 Ergocalciferol [Vitamin D2] 50,000 unit PO Q7D@1000 08/04/18 Fluticasone Prop 0.05% Nasal [Flonase -] 1 spray NS DAILY 08/04/18 Folic Acid - 1 mg PO DAILY 08/04/18 Multivitamin [One-Daily Multi-Vitamin] 1 each PO DAILY 08/04/18 Simvastatin [Zocor -] 20 mg PO HS 08/04/18 Compression Socks, Medium [Futuro Restoring] 1 each MC DAILY #1 each 03/06/19 Furosemide [Lasix] 20 mg PO DAILY #30 tablet 03/06/19 Gauze Bandage [Bandage Roll] 1 each TP DAILY #1 bandage 03/06/19 Metoprolol Tartrate [Lopressor -] 100 mg PO DAILY 03/06/19 Mineral Oil/Pet Hy-Phl [Aquaphor -] 1 applic TP DAILY #1 jar 03/06/19 Multivitamins [Multivit ([facility] Formulary)] 1 tab PO DAILY 30 Days #30 tab Thiamine HCl [Vitamin B1 -] 100 mg PO DAILY 30 Days #30 tablet 03/06/19 levETIRAcetam [Keppra -] 500 mg PO BID #60 tablet 03/11/19 - Diagnosis (1) COPD (chronic obstructive pulmonary disease) Status: Chronic Qualifiers: COPD type: emphysema Emphysema type: unilateral Qualified Code(s): J43.0 - Unilateral pulmonary emphysema [MacLeod's syndrome] (2) Leukopenia Status: Chronic Qualifiers: Leukopenia type: unspecified Qualified Code(s): D72.819 - Decreased white blood cell count, unspecified (3) HTN (hypertension) Status: Chronic Qualifiers: Hypertension type: essential hypertension Qualified Code(s): I10 - Essential (primary) hypertension (4) Seizure disorder Status: Chronic - AMA Did Patient Leave Against Medical Advice: No CIWA Score - CIWA Score Nausea/Vomitin-No Nausea/No Vomiting Muscle Tremors: None Anxiety: 1-Mildly Anxious Agitation: 0-Normal Activity Paroxysmal Sweats: 1-Minimal Palms Moist Orientation: 0-Oriented Tacttile Disturbances: 0-None Auditory Disturbances: 0-None Visual Disturbances: 0-None Headache: 0-None Present CIWA-Ar Total Score: 2
[2019-03-11] MEDS: FLUTICASONE PROP 0.05% 16 GM NASAL SPRAY NS SCH (10:23)
[2019-03-11] MEDS: PRENATAL VITAMINS W/ FOLIC ACID TABLET (FP) PO SCH (10:23)
[2019-03-11] MEDS: levETIRAcetam 500 MG TABLET (FP) PO SCH (10:23)
[2019-03-11] MEDS: FUROSEMIDE 20 MG TABLET (FP) PO SCH (10:23)
[2019-03-11] MEDS: amLODIPine BESYLATE 10 MG TABLET (FP) PO SCH (10:23)
[2019-03-11] MEDS: MINERAL OIL/PET HY-PHL TOPICAL OINTMENT 454 GM JAR TP SCH (10:24)
[2019-03-11] MEDS: [UNRECOGNIZED DRUG - OTHER] MC SCH (10:25)
== END 2019-03-11 12:51 | disposition home or self-care (01) | DRG 897 ==
LOC: YASAS 23:13 → Y3N 03-07 02:21
PROVIDERS: ADMIT Allergy & Immunology; ATTEND Allergy & Immunology
PROC: HZ2ZZZZ Detoxification Services for Substance Abuse Treatment (ICD-10-PCS; principal; 2019-03-07)
DX: F10.230 Alcohol dependence with withdrawal, uncomplicated (principal); F19.282 Other psychoactive substance dependence with psychoactive substance-induced sleep disorder; F10.24 Alcohol dependence with alcohol-induced mood disorder; F43.10 Post-traumatic stress disorder, unspecified; I11.0 Hypertensive heart disease with heart failure; I50.9 Heart failure, unspecified; I87.2 Venous insufficiency (chronic) (peripheral); D72.819 Decreased white blood cell count, unspecified; J43.0 Unilateral pulmonary emphysema [MacLeod's syndrome]; G40.909 Epilepsy, unspecified, not intractable, without status epilepticus; K21.9 Gastro-esophageal reflux disease without esophagitis; E78.5 Hyperlipidemia, unspecified; H54.40 Blindness, one eye, unspecified eye; R60.0 Localized edema; R26.2 Difficulty in walking, not elsewhere classified; Z99.89 Dependence on other enabling machines and devices; Z87.820 Personal history of traumatic brain injury; Z88.0 Allergy status to penicillin
CPT/HCPCS: 36415; 71046-TC-FY; 80053; 85027; 86593; 93005; 93010; J0735

== ENCOUNTER 2019-09-04 17:37 | Emergency (ER) | payer OTHER ==
[2019-09-04 17:56] VITALS: BMI 25.7
--- NOTE | 2019-09-04 18:26 | PDOC ---
History of Present Illness - General Chief Complaint: Pain Stated Complaint: SENT FROM [facility], INGUINAL HERNIA Time Seen by Provider: 09/04/19 17:57 History Source: Patient, Old Records Exam Limitations: No Limitations - History of Present Illness Travel History: No Initial Comments: 09/04/19 18:20 HISTORY OF PRESENT ILLNESS: 59-year-old male with past medical history of HTN, bipolar d/o, PTSD, HLD seizure d/o, gerd, vitaliy knees chronic pain, hernia left inguinal, left THR 07/03 who presents emergency department from [facility] for evaluation of left inguinal hernia which is been present "for really long time." Patient was scheduled to have evaluation and surgical repair at [facility] but in the process of evaluation fell and fractured his left hip requiring an ORIF instead of inguinal hernia repair. Patient reports he has not been reevaluated for hernia repair as he still undergoing PT for the left hip. Patient presented to [facility] today for treatment of chronic alcohol abuse. Patient denies pain at present. No recent travel or sick contacts. PAST MEDICAL HISTORY: See HPI SURGICAL HISTORY: See HPI ALLERGIES: Penicillin REVIEW OF SYSTEMS General/Constitutional: Denies fever or chills. Denies weakness, weight change. HEENT: Denies change in vision. Denies ear pain or discharge. Denies sore throat. Cardiovascular: Denies chest pain or shortness of breath. Respiratory: Denies cough, wheezing, or hemoptysis. Gastrointestinal: see HPI Genitourinary: Denies dysuria, frequency, or change in urination. Musculoskeletal: Denies joint or muscle swelling or pain. Denies neck or back pain. Skin and breasts: Denies rash or easy bruising. Neurologic: Denies headache, vertigo, loss of consciousness, or loss of sensation. Psychiatric: Denies depression or anxiety. Endocrine: Denies increased thirst. Denies abnormal weight change. Hematologic/Lymphatic: Denies anemia, easy bleeding, or history of blood clots. Allergic/Immunologic: Denies hives or skin allergy. Denies latex allergy. PHYSICAL EXAM General Appearance: Well-appearing, appropriately dressed. No apparent distress, no intoxication. Respiratory/Chest: Lungs CTAB. No shortness of breath, chest tenderness, respiratory distress, accessory muscle use. No crackles, rales, rhonchi, stridor, wheezing, dullness Cardiovascular: RRR. S1, S2. No JVD, murmur, bradycardia, tachycardia. Vascular Pulses: Dorsalis-Pedis (R): 2+, Dorsalis-Pedis (L): 2+ Gastrointestinal/Abdominal: Normal bowel sounds. Abdomen soft, non-distended. No tenderness or rebound tenderness. No organomegaly, pulsatile mass, guarding, hepatomegaly, splenomegaly. Approximate 10 cm circular area of soft swelling present to left inguinal region consistent with hernia. Lymphatic: No adenopathy, tenderness. Integumentary: Appropriate color, dry, warm. No cyanosis, erythema, jaundice or rash. Surgical incision present over left trochanter. Past History - Medical History Allergies/Adverse Reactions: Allergies Allergy/AdvReac Type Severity Reaction Status Date / Time penicillin G Allergy Verified 09/04/19 17:51 Penicillins Allergy Verified 09/04/19 17:51 Home Medications: Ambulatory Orders Brimonidine Tartrate [Alphagan 0.2% -] 1 drop OU TID 08/04/18 Folic Acid - 1 mg PO DAILY 08/04/18 Multivitamin [One-Daily Multi-Vitamin] 1 each PO DAILY 08/04/18 Simvastatin [Zocor -] 20 mg PO HS 08/04/18 Metoprolol Tartrate [Lopressor -] 100 mg PO BID 03/06/19 Thiamine HCl [Vitamin B1 -] 100 mg PO DAILY 30 Days #30 tablet 03/06/19 Amlodipine Besylate [Norvasc -] 10 mg PO DAILY 09/05/19 Phenytoin Na Extended [Dilantin -] 100 mg PO TID 09/05/19 levETIRAcetam [Keppra -] 1,000 mg PO BID 09/05/19 Anemia: No Asthma: No Cancer: No Cardiac Disorders: No CVA: No COPD: Yes (chronic bronchitis) CHF: No Dementia: No Diabetes: No GI Disorders: No Disorders: No HTN: Yes Hypercholesterolemia: Yes Kidney Stones: No Liver Disease: No Seizures: Yes (last 1 week ago on meds.) Thyroid Disease: No - Surgical History Abdominal Surgery: No Appendectomy: No Cardiac Surgery: No Cholecystectomy: No Lung Surgery: No Neurologic Surgery: No Orthopedic Surgery: Yes - Reproductive History Testicular Surgery: No - Psycho-Social/Smoking History Smoking History: Never smoked Have you smoked in the past 12 months: No Information on smoking cessation initiated: No - Substance Abuse Hx (Audit-C & DAST Scrn) How often the patient has a drink containing alcohol: Never Score: In Men: 4 or > Positive; In Women: 3 or > Positive: 0 Screen Result (Pos requires Nsg. Audit-10AR): Negative In the last yr the pt used illegal drug/Rx for NonMed reason: No Score: Yes response is considered Positive: 0 Screen Result (Positive result requires Nsg. DAST-10): Negative Abd/GI Specific PMHX - Complaint Specific PMHX Hepatitis: No Pancreatitis: No *Physical Exam - Vital Signs Last Vital Signs Temp Pulse Resp BP Pulse Ox 98.5 F 85 19 149/87 99 09/04/19 17:48 09/04/19 17:48 09/04/19 17:48 09/04/19 17:48 09/04/19 17:48 ED Treatment Course - LABORATORY CBC & Chemistry Diagram: 09/04/19 19:00 09/04/19 18:26 Medical Decision Making - Medical Decision Making 09/04/19 18:26 A/P: 59-year-old male for evaluation of left inguinal hernia CT of the abdomen and pelvis with p.o. contrast Reassess 09/04/19 21:27 Patient is currently pending CT scan. Case has been signed out to nurse elizabeth Escobar for continued evaluation. Discharge - Discharge Information Problems reviewed: Yes Clinical Impression/Diagnosis: Inguinal hernia Qualifiers: Obstruction and gangrene presence: without obstruction or gangrene Laterality: unilateral Recurrence: recurrent Qualified Code(s): K40.91 - Unilateral inguinal hernia, without obstruction or gangrene, recurrent Condition: Stable Disposition: HOME - Follow up/Referral Referrals: Alfonso Arrieta MD [Staff Physician] - Christiano Dc MD [Staff Physician] - ON STAFF,NOT [Primary Care Provider] - - Patient Discharge Instructions Patient Printed Discharge Instructions: Groin Hernia -- Adult Additional Instructions: please follow up with surgeon - Post Discharge Activity
[2019-09-04 19:31] LABS: BASO % 1.1 % (0-2.0); EOS % 15.6 % (0-4.5); HEMATOCRIT 31.6 % (35.4-49); HEMOGLOBIN 10.6 GM/dL (11.7-16.9); LYMPH % 26.6 % (8-40); MCHC 33.7 g/dl (32.0-35.9); MEAN PLT VOLUME 7.6 fl (7.5-11.1); MONO % 18.3 % (3.8-10.2); NEUT % 38.4 % (42.8-82.8); PLATELET COUNT 272 K/MM3 (134-434); RBC 3.32 M/mm3 (4.00-5.60); RDW 15.4 % (11.9-15.9); WHITE BLOOD COUNT 3.1 K/mm3 (4.0-10.0)
[2019-09-04 20:03] LABS: BLOOD UREA NITROGEN 16.1 mg/dL (7-18); CALCIUM 9.4 mg/dL (8.5-10.1); CREATININE 1.3 mg/dL (0.55-1.3)
[2019-09-04 21:04] LABS: ANISOCYTOSIS 0; MACROCYTOSIS 0; PLATELET ESTIMATE NORMAL
--- NOTE | 2019-09-04 22:27 | PDOC ---
*Physical Exam - Vital Signs Last Vital Signs Temp Pulse Resp BP Pulse Ox 97.4 F L 82 19 156/96 98 09/04/19 19:54 09/04/19 19:54 09/04/19 17:48 09/04/19 19:54 09/04/19 19:54 ED Treatment Course - LABORATORY CBC & Chemistry Diagram: 09/04/19 19:00 09/04/19 18:26 - ADDITIONAL ORDERS Additional order review: Laboratory Results 09/04/19 18:26 Sodium 133 L Potassium 5.0 Chloride 98 Carbon Dioxide 22 Anion Gap 13 BUN 16.1 Creatinine 1.3 Est GFR (CKD-EPI)AfAm 69.22 Est GFR (CKD-EPI)NonAf 59.72 Random Glucose 103 Calcium 9.4 09/04/19 19:00 RBC 3.32 L MCV 95.0 MCHC 33.7 RDW 15.4 MPV 7.6 Neutrophils % 38.4 L Lymphocytes % 26.6 Monocytes % 18.3 H Eosinophils % 15.6 H D Basophils % 1.1 Medical Decision Making - Medical Decision Making 09/05/19 00:39 I spoke to [facility] D[facility] GUARD. reports that patient is not admitted,. need to go to intake for potential detox admission. patient is in no withdrawal symptoms now. patient is alert and talking 09/05/19 06:01 [facility] intake is open at 7 am. patient will be sent to [facility] at 7 am Discharge - Discharge Information Problems reviewed: Yes Clinical Impression/Diagnosis: Inguinal hernia Qualifiers: Obstruction and gangrene presence: without obstruction or gangrene Laterality: unilateral Recurrence: recurrent Qualified Code(s): K40.91 - Unilateral inguinal hernia, without obstruction or gangrene, recurrent Disposition: HOME - Follow up/Referral Referrals: Alfonso Arrieta MD [Staff Physician] - Christiano Dc MD [Staff Physician] - ON STAFF,NOT [Primary Care Provider] - - Patient Discharge Instructions Patient Printed Discharge Instructions: Groin Hernia -- Adult Additional Instructions: please follow up with surgeon - Post Discharge Activity
[2019-09-05 00:30] LABS: URINE APPEARANCE CLEAR; URINE BILIRUBIN NEGATIVE (NEGATIVE); URINE COLOR YELLOW; URINE GLUCOSE (UA) NEGATIVE (NEGATIVE); URINE KETONE NEGATIVE (NEGATIVE); URINE LEUK ESTERASE NEGATIVE (NEGATIVE); URINE NITRITE NEGATIVE (NEGATIVE); URINE PROTEIN TRACE (NEGATIVE)
[2019-09-05 00:56] VITALS: BP 176/102; PULSE 73; TEMP 98.4
== END 2019-09-05 06:20 | disposition home or self-care (01) ==
LOC: SUPCPDRO 17:37 → JER 17:37
DX: K40.91 Unilateral inguinal hernia, without obstruction or gangrene, recurrent (principal)
CPT/HCPCS: 36415; 74176-TC; 80048; 81003; 85025; 99284-25; Q9967

== ENCOUNTER 2019-09-05 08:11 | Inpatient (IN) | payer OTHER ==
--- NOTE | 2019-09-05 08:34 | HP ---
CIWA Score Nausea/Vomitin-No Nausea/No Vomiting Muscle Tremors: 5 Anxiety: 3 Agitation: 3 Paroxysmal Sweats: 5 Orientation: 1-Uncertain about Date Tacttile Disturbances: 0-None Auditory Disturbances: 0-None Visual Disturbances: 0-None Headache: 0-None Present CIWA-Ar Total Score: 17 - Admission Criteria OASAS Guidelines: Admission for Medically Managed Detox: Requires at least one of the followin. CIWA greater than 12 2. Seizures within the past 24 hours 3. Delirium tremens within the past 24 hours 4. Hallucinations within the past 24 hours 5. Acute intervention needed for co occurring medical disorder 6. Acute intervention needed for co occurring psychiatric disorder 7. Severe withdrawal that cannot be handled at a lower level of care (continued vomiting, continued diarrhea, abnormal vital signs) requiring intravenous medication and/or fluids 8. Admitting History and Physical - Admission Chief Complaint: " I need to stop drinking before I kill myself." History of Present Illness: 59 year old male with history of alcohol dependence with withdrawal. He was here and RME and when seen by provider, had left inguinal hernia which he was sent to [facility] for. However, they determined that the inguinal hernia was not in immediate need for repair and sent him back today for detox admission. He was not given any medications last night. He was last here in 03/05-03/11/19 with uncontrolled HTN and also had to go to [facility] for medication control of his HTN and send back to complete detox. Upon discharge in February he immediately relapsed. See RME from yesterday. PMH: HTN, Seizure Disorder,Chronic Bronchitis, ambulates with walker, Arthritis B/L knees, Psurg: L Hip Fx - lanette implanted in 02/2019; L eye surgery X 2 for trauma Psych: PTSD, Bipolar He is homeless in [place]term, no legal problems. SUNNY from yesterday was 0.167 CIWA= 17, worse than yesterday He meets criteria for detox as he's had multiple medical and psychiatric co- morbidities. 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 Cardiovascular: Yes: HTN Pulmonary: Yes: Bronchitis Musculoskeletal: Yes: Other (Arthritis B/L Knees) - Past Surgical History Additional Past Surgical History: L hip surgery, L eye surgery X 2 for trauma - Smoking History Smoking history: Never smoked Have you smoked in the past 12 months: No - Alcohol/Substance Use Hx Alcohol Use: Yes Number of Drinks Daily: 10 - Social History Usual Living Arrangement: Yes: Other Do you think of yourself as: Declined to answer ADL: Independent Occupation: unemployed, [place] [employer] History of Recent Travel: No Admission ROS [facility] - [facility] Allergies/Adverse Reactions: Allergies Allergy/AdvReac Type Severity Reaction Status Date / Time penicillin G Allergy Verified 09/04/19 17:51 Penicillins Allergy Verified 09/04/19 17:51 Exam Limitations: No Limitations - Ebola screening Have you traveled outside of the country in the last 21 days: No Have you had contact with anyone from an Ebola affected area: No Have you been sick,other than usual withdrawal symptoms: No Do you have a fever: No - Review of Systems Constitutional: Chills, Diaphoresis, Unintentional Wgt. Loss EENT: reports: No Symptoms Reported Respiratory: reports: No Symptoms reported Cardiac: reports: No Symptoms Reported GI: reports: No Symptoms Reported : reports: No Symptoms Reported Musculoskeletal: reports: No Symptoms Reported Integumentary: reports: No Symptoms Reported Neuro: reports: No Symptoms reported Endocrine: reports: No Symptoms Reported Hematology: reports: No Symptoms Reported Psychiatric: reports: Judgement Intact, Mood/Affect Appropiate, Orientated x3, Agitated, Anxious, Depressed Other Systems: Reviewed and Negative Patient History - Patient Medical History Hx Anemia: No Hx Asthma: No Hx Chronic Obstructive Pulmonary Disease (COPD): Yes (chronic bronchitis) Hx Cancer: No Hx Cardiac Disorders: No Hx Congestive Heart Failure: No Hx Hypertension: Yes Hx Hypercholesterolemia: Yes Hx Pacemaker: No HX Cerebrovascular Accident: No Hx Seizures: Yes (last 1 week ago on meds.) Hx Dementia: No Hx Diabetes: No Hx Gastrointestinal Disorders: No Hx Liver Disease: No Hx Genitourinary Disorders: No Hx Sexually Transmitted Disorders: No Hx Renal Disease (ESRD): No Hx Thyroid Disease: No Hx Human Immunodeficiency Virus (HIV): No (Negative 2017) Hx Depression: Yes Hx Suicide Attempt: No (Denies suicidal ideation at this time) Hx Schizophrenia: No - Patient Surgical History Past Surgical History: Yes Hx Neurologic Surgery: No Hx Cataract Extraction: No Hx Cardiac Surgery: No Hx Lung Surgery: No Hx Breast Surgery: No Hx Breast Biopsy: No Hx Abdominal Surgery: No Hx Appendectomy: No Hx Cholecystectomy: No Hx Genitourinary Surgery: No Hx Section: No Hx Orthopedic Surgery: Yes Other Surgical History: L eye sx x2 from trauma. Anesthesia Reaction: No - PPD History Previous Implant?: Yes Documented Results: Negative w/o proof Implanted On Prior R Admission?: No PPD to be Administered?: Yes - Smoking Cessation Smoking history: Never smoked Have you smoked in the past 12 months: No Hx Chewing Tobacco Use: No Initiated information on smoking cessation: No - Substances abused Alcohol Substance route: Oral Frequency: Daily Amount used: 1 pint vodka + beers Age of first use: 13 Date of last use: 09/04/19 Admission Physical Exam BHS - Physical General Appearance: Yes: Disheveled, Moderate Distress, Thin, Tremorous, Irritab le, Sweating, Anxious HEENTM: Yes: EOMI, Hearing grossly Normal, Normal ENT Inspection, Normocephalic, Normal Voice, LYNETTE, Pharynx Normal, Tm's normal, Other (scar over left orbit) Respiratory: Yes: Chest Non-Tender, Lungs Clear, Normal Breath Sounds, No Respiratory Distress, No Accessory Muscle Use Neck: Yes: No masses,lesions,Nodules, Supple, Trachea in good position Breast: Yes: Within Normal Limits Cardiology: Yes: Regular Rhythm, Regular Rate, S1, S2 Abdominal: Yes: Normal Bowel Sounds, Non Tender, Flat, Soft Genitourinary: Yes: Within Normal Limits Back: Yes: Normal Inspection Musculoskeletal: Yes: Other (scar on left hip) Extremities: Yes: Normal Capillary Refill, Normal Inspection, Normal Range of Motion, Non-Tender Neurological: Yes: supervisor finishing room II-XII NML intact, Fully Oriented, Alert, Motor Strength 5/5, Normal Mood/Affect, Normal Response Integumentary: Yes: Normal Color, Dry, Warm Lymphatic: Yes: Within Normal Limits - Diagnostic (1) Alcohol-induced mood disorder Current Visit: Yes Status: Acute (2) Alcohol dependence with uncomplicated withdrawal Current Visit: Yes Status: Acute (3) Alcohol-induced sleep disorder Current Visit: Yes Status: Acute (4) Anemia Current Visit: Yes Status: Acute (5) Asymptomatic hypertension Current Visit: Yes Status: Acute (6) Bipolar 1 disorder Current Visit: Yes Status: Acute (7) Inguinal hernia Current Visit: Yes Status: Acute Qualifiers: Obstruction and gangrene presence: without obstruction or gangrene Laterality: unilateral Recurrence: recurrent Qualified Code(s): K40.91 - Unilateral inguinal hernia, without obstruction or gangrene, recurrent (8) Bronchitis Current Visit: Yes Status: Chronic (9) HTN (hypertension) Current Visit: Yes Status: Chronic Qualifiers: Hypertension type: essential hypertension Qualified Code(s): I10 - Essential (primary) hypertension (10) History of posttraumatic stress disorder (PTSD) Current Visit: Yes Status: Chronic Comment: No symptoms elicited in this interview. (11) Insomnia Current Visit: Yes Status: Chronic (12) Seizure disorder Current Visit: Yes Status: Chronic (13) Venous insufficiency Current Visit: Yes Status: Chronic Cleared for Admission S - Detox or Rehab [facility] Level of Care: Medically Managed Detox Regimen/Protocol: Librium Claeared for Rehab Admission: No Screened but not Admitted - Documentation of Visit Screened but not Admitted: No Breathalyzer - Breathalyzer Breathalyzer: 0.167 (yesterday's result) Urine Drug Screen - Test Device Lot number: [id number] Expiration date: 10/14/20 - Control Is test valid?: Yes - Results Drug screen NEGATIVE: No Urine drug screen results: BAR-Barbiturates Inpatient Rehab Admission - Rehab Decision to Admit Inpatient rehab admission?: No
[2019-09-05] MEDS ORDERED: ONDANSETRON *ODT* 4 MG TABLET SL ONE (08:42)
[2019-09-05] MEDS ORDERED: MAGNESIUM HYDROX 2400MG/30ML ORAL SUSPENSION 30 ML CUP PO PRN (08:42)
[2019-09-05] MEDS ORDERED: METHOCARBAMOL 500 MG TABLET PO PRN (08:42)
[2019-09-05] MEDS ORDERED: MAGNESIUM CITRATE 300 ML BOTTLE PO PRN (08:42)
[2019-09-05] MEDS ORDERED: BISMUTH SUBSALICYLATE 262 MG/15 ML BTL PO PRN (08:42)
[2019-09-05] MEDS ORDERED: MAG HYDROX/AL HYDROX/SIMETH 30 ML UNIT-DOSE CUP PO PRN (08:42)
[2019-09-05] MEDS ORDERED: ACETAMINOPHEN 325 MG TABLET (FP) PO PRN ×2 (08:42)
[2019-09-05] MEDS ORDERED: chlordiazePOXIDE HCL 25 MG CAPSULE PO PRN (08:42)
[2019-09-05] MEDS ORDERED: IBUPROFEN 400 MG TABLET (FP) PO PRN (08:42)
[2019-09-05] MEDS ORDERED: MENTHOL/PHENOL 1 EACH UD MM PRN (08:42)
[2019-09-05 09:13] VITALS: BMI 23.7
[2019-09-05] MEDS ORDERED: ERGOCALCIFEROL (VIT D2) 50,000 UNIT (1.25 MG) CAPSULE PO SCH (10:00)
[2019-09-05] MEDS ORDERED: cloNIDine-TTS 0.3 MG /24 HRS PATCH.TDWK TD SCH (10:00)
[2019-09-05] MEDS ORDERED: [UNRECOGNIZED DRUG - OTHER] MC SCH (10:00)
[2019-09-05] MEDS ORDERED: MINERAL OIL/PET HY-PHL TOPICAL OINTMENT 454 GM JAR TP SCH (10:00)
[2019-09-05] MEDS: METOPROLOL TARTRATE 50 MG TABLET (FP) PO SCH (11:05)
[2019-09-05] MEDS: chlordiazePOXIDE HCL 25 MG CAPSULE PO SCH ×3 (11:05→22:06)
[2019-09-05] MEDS: hydrOXYzine PAMOATE 25 MG CAPSULE (FP) PO SCH ×2 (11:05→13:55)
[2019-09-05] MEDS: levETIRAcetam 500 MG TABLET (FP) PO SCH ×2 (11:05→22:06)
[2019-09-05] MEDS: PRENATAL VITAMINS W/ FOLIC ACID TABLET (FP) PO SCH (11:05)
[2019-09-05] MEDS: FUROSEMIDE 20 MG TABLET (FP) PO SCH (11:10)
[2019-09-05] MEDS: FLUTICASONE PROP 0.05% 16 GM NASAL SPRAY NS SCH (11:49)
[2019-09-05] MEDS: MINERAL OIL/PETROLAT/WATER TOPICAL CREAM 113 GM JAR TP SCH (11:52)
[2019-09-05] MEDS: BRIMONIDINE TARTRATE 0.2% OPHTHALMIC 5 ML BOTTLE OU SCH ×2 (13:55→22:09)
[2019-09-05 14:01] LABS: HEMATOCRIT 31.9 % (35.4-49); HEMOGLOBIN 10.6 GM/dL (11.7-16.9); MCH 31.4 pg (25.7-33.7); MCHC 33.1 g/dl (32.0-35.9); MEAN CELL VOLUME 95.1 fl (80-96); MEAN PLT VOLUME 7.5 fl (7.5-11.1); PLATELET COUNT 281 K/MM3 (134-434); RBC 3.36 M/mm3 (4.00-5.60); RDW 15.1 % (11.9-15.9); WHITE BLOOD COUNT 3.4 K/mm3 (4.0-10.0)
[2019-09-05 14:18] LABS: ALBUMIN 4.8 g/dl (3.4-5.0); BILIRUBIN,TOTAL 0.7 mg/dL (0.2-1); BLOOD UREA NITROGEN 11.9 mg/dL (7-18); CALCIUM 8.8 mg/dL (8.5-10.1); CREATININE 1.2 mg/dL (0.55-1.3); POTASSIUM 4.4 mmol/L (3.5-5.1); TOT PROT 9.1 g/dl (6.4-8.2)
--- NOTE | 2019-09-05 15:19 | CONSULT ---
[facility] Psychiatric Consult - Data Date of interview: 09/05/19 Admission source: Lew
[2019-09-05] MEDS ORDERED: hydrOXYzine PAMOATE 25 MG CAPSULE (FP) PO PRN (15:42)
--- NOTE | 2019-09-05 17:54 | PN ---
S Progress Note Note: Psychiatry Attending's note : Disregard consult draft. Was entered in error.
[2019-09-05] MEDS ORDERED: MELATONIN 5 MG TABLETS PO SCH (22:00)
[2019-09-05] MEDS: ATORVASTATIN CA 10 MG TABLET (FP) PO SCH (22:05)
[2019-09-05] MEDS: THIAMINE HCL 100 MG TABLET (FP) PO SCH (22:06)
[2019-09-06] MEDS: chlordiazePOXIDE HCL 25 MG CAPSULE PO SCH ×4 (05:54→22:20)
[2019-09-06] MEDS: BRIMONIDINE TARTRATE 0.2% OPHTHALMIC 5 ML BOTTLE OU SCH ×3 (05:54→22:21)
--- NOTE | 2019-09-06 09:52 | CONSULT ---
[facility] Psychiatric Consult - Data Date of interview: 09/06/19 Admission source: Self-referred Identifying data: Mr Fitzpatrick is a 59 years old single Black, father of 4 children, unemployed receiving SSD, homeless living in a fpc in [place] seeking detox treatment for alcohol Substance Abuse History: Reports history of alcohol use. 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 Patient walks with a cane. Psychiatric History: Patient is known for three previous admissions to this facility. 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 Reports that due to his addiction, he stopped seeing therapist and the psychiatrist at [facility] in the [place] early 2018. During most recent admission to this facility, he saw RACHEAL Steel on 03/08/19 and he was ordered Melatonin 5 mg/hs prn for insomnia. Patient denies previous psychiatric hospitalizations or suicidal attempt. At present, denies experiencing psychotic, manic or depressive symptoms, S/H ideations. However, reports sleeping poorly Physical/Sexual Abuse/Trauma History: Patient denies history of any type of abuse. Served in the [employer] for two years from [id number]. 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 Patient reports a background of " less than honorable discharge ". Mr Fitzpatrick reports no combat experience. Told scenario writer that he was court marshaled for drinking, fighting and stealing Additional Comment: Reports history court martial for drinking, fighting and stealing. Reports being given 2 tickets for drinking Mental Status Exam - Mental Status Exam Alert and Oriented to: Time, Place, Person Cognitive Function: Fair Patient Appearance: Well Groomed Mood: Hopeful, Euthymic Patient Behavior: Cooperative Speech Pattern: Clear Voice Loudness: Normal Thought Process: Intact, Goal Oriented Hallucinations: Denies Suicidal Ideation: Denies Homicidal Ideation: Denies Insight/Judgement: Poor Sleep: Poorly Appetite: Good Muscle strength/Tone: Normal Gait/Station: Other (Uses a cane as ambulatory aid) Psychiatric Findings - Problem List (Calder 1, 2,3) (1) PTSD (post-traumatic stress disorder) Current Visit: No Status: Chronic (2) Bipolar disorder Current Visit: No Status: Chronic (3) Alcohol-induced sleep disorder Current Visit: Yes Status: Acute (4) Alcohol dependence with uncomplicated withdrawal Current Visit: Yes Status: Acute (5) Inguinal hernia Current Visit: Yes Status: Resolved Qualifiers: Obstruction and gangrene presence: without obstruction or gangrene Laterality: unilateral Recurrence: recurrent Qualified Code(s): K40.91 - Unilateral inguinal hernia, without obstruction or gangrene, recurrent (6) HTN (hypertension) Current Visit: Yes Status: Chronic Qualifiers: Hypertension type: essential hypertension Qualified Code(s): I10 - Essential (primary) hypertension (7) Seizure disorder Current Visit: Yes Status: Chronic (8) COPD (chronic obstructive pulmonary disease) Current Visit: No Status: Chronic Qualifiers: COPD type: emphysema Emphysema type: unilateral Qualified Code(s): J43.0 - Unilateral pulmonary emphysema [MacLeod's syndrome] - Initial Treatment Plan Initial Treatment Plan: 1) Start Melatonin 10 mg po HS prn for insomnia. 2) Continue inpatient detoxification
[2019-09-06] MEDS: FUROSEMIDE 20 MG TABLET (FP) PO SCH (10:13)
[2019-09-06] MEDS: levETIRAcetam 500 MG TABLET (FP) PO SCH ×2 (10:13→22:20)
[2019-09-06] MEDS: METOPROLOL TARTRATE 50 MG TABLET (FP) PO SCH (10:13)
[2019-09-06] MEDS: PRENATAL VITAMINS W/ FOLIC ACID TABLET (FP) PO SCH (10:13)
[2019-09-06] MEDS: MINERAL OIL/PETROLAT/WATER TOPICAL CREAM 113 GM JAR TP SCH (10:14)
[2019-09-06] MEDS: FLUTICASONE PROP 0.05% 16 GM NASAL SPRAY NS SCH (10:14)
--- NOTE | 2019-09-06 11:38 | PN ---
S CIWA - CIWA Score Nausea/Vomitin Muscle Tremors: 2 Anxiety: 2 Agitation: 2 Paroxysmal Sweats: No Perspiration Orientation: 0-Oriented Tacttile Disturbances: 1-Very Mild Itch/Numbness Auditory Disturbances: 0-None Visual Disturbances: 0-None Headache: 1-Very Mild CIWA-Ar Total Score: 10 S Progress Note (SOAP) Subjective: alert,irritable,anxious,interrupted sleep,tremor,ambulation with walker Objective: 09/06/19 11:36 Vital Signs Temperature 97.5 F L 09/06/19 08:48 Pulse Rate 74 09/06/19 08:48 Respiratory Rate 16 09/06/19 08:48 Blood Pressure 114/76 09/06/19 08:48 O2 Sat by Pulse Oximetry (%) 95 09/06/19 05:38 09/06/19 11:36 Laboratory Last Values WBC 3.4 K/mm3 (4.0-10.0) L 09/05/19 10:00 RBC 3.36 M/mm3 (4.00-5.60) L 09/05/19 10:00 Hgb 10.6 GM/dL (11.7-16.9) L 09/05/19 10:00 Hct 31.9 % (35.4-49) L 09/05/19 10:00 MCV 95.1 fl (80-96) 09/05/19 10:00 MCH 31.4 pg (25.7-33.7) 09/05/19 10:00 MCHC 33.1 g/dl (32.0-35.9) 09/05/19 10:00 RDW 15.1 % (11.9-15.9) 09/05/19 10:00 Plt Count 281 K/MM3 (134-434) 09/05/19 10:00 MPV 7.5 fl (7.5-11.1) 09/05/19 10:00 Sodium 131 mmol/L (136-145) L 09/05/19 10:00 Potassium 4.4 mmol/L (3.5-5.1) 09/05/19 10:00 Chloride 96 mmol/L (98-107) L 09/05/19 10:00 Carbon Dioxide 28 mmol/L (21-32) 09/05/19 10:00 Anion Gap 7 MMOL/L (8-16) L 09/05/19 10:00 BUN 11.9 mg/dL (7-18) 09/05/19 10:00 Creatinine 1.2 mg/dL (0.55-1.3) 09/05/19 10:00 Est GFR (CKD-EPI)AfAm 76.25 09/05/19 10:00 Est GFR (CKD-EPI)NonAf 65.79 09/05/19 10:00 Random Glucose 167 mg/dL (74-106) H 09/05/19 10:00 Calcium 8.8 mg/dL (8.5-10.1) 09/05/19 10:00 Total Bilirubin 0.7 mg/dL (0.2-1) 09/05/19 10:00 AST 86 U/L (15-37) H 09/05/19 10:00 ALT 54 U/L (13-61) 09/05/19 10:00 Alkaline Phosphatase 156 U/L (45-117) H 09/05/19 10:00 Total Protein 9.1 g/dl (6.4-8.2) H 09/05/19 10:00 Albumin 4.8 g/dl (3.4-5.0) 09/05/19 10:00 Syphilis Serology Non-reactive (NONREACTIVE) 09/05/19 10:00 HIV Ag/Ab Combo Qual Negative (NEGATIVE) 09/05/19 10:00 Assessment: 09/06/19 11:37 withdrawal symptom Plan: continue detox librium regimen,fasting glucose in am,seizure precaution
[2019-09-06] MEDS: THIAMINE HCL 100 MG TABLET (FP) PO SCH (22:20)
[2019-09-06] MEDS: ATORVASTATIN CA 10 MG TABLET (FP) PO SCH (22:21)
[2019-09-06] MEDS: MELATONIN 5 MG TABLETS PO PRN (22:22)
[2019-09-07] MEDS: BRIMONIDINE TARTRATE 0.2% OPHTHALMIC 5 ML BOTTLE OU SCH ×3 (05:59→22:31)
[2019-09-07] MEDS: chlordiazePOXIDE HCL 25 MG CAPSULE PO SCH ×4 (05:59→22:31)
[2019-09-07 10:20] LABS: HEMOGLOBIN 9.9 GM/dL (11.7-16.9); MCH 32.1 pg (25.7-33.7); MEAN CELL VOLUME 97.3 fl (80-96); MEAN PLT VOLUME 8.5 fl (7.5-11.1); PLATELET COUNT 227 K/MM3 (134-434); RBC 3.09 M/mm3 (4.00-5.60); WHITE BLOOD COUNT 3.2 K/mm3 (4.0-10.0)
[2019-09-07 10:29] LABS: ALBUMIN 3.8 g/dl (3.4-5.0); BILIRUBIN,TOTAL 0.2 mg/dL (0.2-1); BLOOD UREA NITROGEN 17.8 mg/dL (7-18); CALCIUM 9.5 mg/dL (8.5-10.1); CREATININE 1.4 mg/dL (0.55-1.3); POTASSIUM 4.8 mmol/L (3.5-5.1)
[2019-09-07] MEDS: levETIRAcetam 500 MG TABLET (FP) PO SCH ×2 (10:32→22:31)
[2019-09-07] MEDS: FUROSEMIDE 20 MG TABLET (FP) PO SCH (10:32)
[2019-09-07] MEDS: METOPROLOL TARTRATE 50 MG TABLET (FP) PO SCH (10:32)
[2019-09-07] MEDS: MINERAL OIL/PETROLAT/WATER TOPICAL CREAM 113 GM JAR TP SCH (10:32)
[2019-09-07] MEDS: FLUTICASONE PROP 0.05% 16 GM NASAL SPRAY NS SCH (10:33)
[2019-09-07] MEDS: PRENATAL VITAMINS W/ FOLIC ACID TABLET (FP) PO SCH (10:33)
--- NOTE | 2019-09-07 13:02 | PN ---
[facility] CIWA - CIWA Score Nausea/Vomitin-Mild Nausea/No Vomiting Muscle Tremors: 2 Anxiety: 2 Agitation: 1-Slight > Activity Paroxysmal Sweats: No Perspiration Orientation: 0-Oriented Tacttile Disturbances: 0-None Auditory Disturbances: 0-None Visual Disturbances: 0-None Headache: 1-Very Mild CIWA-Ar Total Score: 7 S Progress Note (SOAP) Subjective: alert,irritable,interrupted sleep,tremor,body jeanmarie,nausea,fel weak Objective: 09/07/19 13:00 Vital Signs Temperature 97.3 F L 09/07/19 05:16 Pulse Rate 65 09/07/19 05:16 Respiratory Rate 20 09/07/19 05:16 Blood Pressure 109/75 09/07/19 05:16 O2 Sat by Pulse Oximetry (%) 100 09/07/19 05:16 09/07/19 13:01 Laboratory Last Values WBC 3.2 K/mm3 (4.0-10.0) L 09/07/19 08:15 RBC 3.09 M/mm3 (4.00-5.60) L 09/07/19 08:15 Hgb 9.9 GM/dL (11.7-16.9) L 09/07/19 08:15 Hct 30.0 % (35.4-49) L 09/07/19 08:15 MCV 97.3 fl (80-96) H 09/07/19 08:15 MCH 32.1 pg (25.7-33.7) 09/07/19 08:15 MCHC 33.0 g/dl (32.0-35.9) 09/07/19 08:15 RDW 15.0 % (11.9-15.9) 09/07/19 08:15 Plt Count 227 K/MM3 (134-434) 09/07/19 08:15 MPV 8.5 fl (7.5-11.1) D 09/07/19 08:15 Sodium 133 mmol/L (136-145) L 09/07/19 08:15 Potassium 4.8 mmol/L (3.5-5.1) 09/07/19 08:15 Chloride 98 mmol/L (98-107) 09/07/19 08:15 Carbon Dioxide 25 mmol/L (21-32) 09/07/19 08:15 Anion Gap 10 MMOL/L (8-16) 09/07/19 08:15 BUN 17.8 mg/dL (7-18) 09/07/19 08:15 Creatinine 1.4 mg/dL (0.55-1.3) H 09/07/19 08:15 Est GFR (CKD-EPI)AfAm 63.29 09/07/19 08:15 Est GFR (CKD-EPI)NonAf 54.60 09/07/19 08:15 Random Glucose 81 mg/dL (74-106) 09/07/19 08:15 Fasting Glucose 81 mg/dL (74-106) 09/07/19 08:15 Calcium 9.5 mg/dL (8.5-10.1) 09/07/19 08:15 Total Bilirubin 0.2 mg/dL (0.2-1) 09/07/19 08:15 AST 47 U/L (15-37) H 09/07/19 08:15 ALT 38 U/L (13-61) 09/07/19 08:15 Alkaline Phosphatase 106 U/L (45-117) 09/07/19 08:15 Total Protein 8.0 g/dl (6.4-8.2) 09/07/19 08:15 Albumin 3.8 g/dl (3.4-5.0) 09/07/19 08:15 Syphilis Serology Non-reactive (NONREACTIVE) 09/05/19 10:00 COVID-19 (NAYE) Not detected (Not Detected) 09/05/19 11:10 HIV Ag/Ab Combo Qual Negative (NEGATIVE) 09/05/19 10:00 Assessment: 09/07/19 13:01 withdrawal symptom Plan: continue detox librium regimen,anemia go give ferrous sulfate 325 mgs po bid,ensure plus 120 mls po bid,encourage oral fluid
--- NOTE | 2019-09-07 13:06 | PN ---
[facility] CIWA - CIWA Score Nausea/Vomitin-Mild Nausea/No Vomiting Muscle Tremors: 1-None Visible, but Thoreau Anxiety: 1-Mildly Anxious Agitation: 1-Slight > Activity Paroxysmal Sweats: No Perspiration Orientation: 0-Oriented Tacttile Disturbances: 0-None Auditory Disturbances: 0-None Visual Disturbances: 0-None Headache: 1-Very Mild CIWA-Ar Total Score: 5 BHS Progress Note (SOAP) Subjective: alert,interrupted sleep,ambulation on the unit Objective: 09/07/19 13:05 Vital Signs Temperature 97.3 F L 09/07/19 05:16 Pulse Rate 65 09/07/19 05:16 Respiratory Rate 20 09/07/19 05:16 Blood Pressure 109/75 09/07/19 05:16 O2 Sat by Pulse Oximetry (%) 100 09/07/19 05:16 patient refused blood test Assessment: 09/07/19 13:06 withdrawal symptom Plan: continue detox,
[2019-09-07] MEDS: FERROUS SO4 325 MG TABLET (FP) PO SCH (18:05)
[2019-09-07] MEDS: THIAMINE HCL 100 MG TABLET (FP) PO SCH (22:31)
[2019-09-07] MEDS: MELATONIN 5 MG TABLETS PO PRN (22:31)
[2019-09-07] MEDS: ATORVASTATIN CA 10 MG TABLET (FP) PO SCH (22:31)
[2019-09-08] MEDS ORDERED: chlordiazePOXIDE HCL 10 MG CAPSULE PO PRN
[2019-09-08] MEDS: chlordiazePOXIDE HCL 10 MG CAPSULE PO SCH ×4 (05:17→22:10)
[2019-09-08] MEDS: BRIMONIDINE TARTRATE 0.2% OPHTHALMIC 5 ML BOTTLE OU SCH ×3 (05:18→22:11)
[2019-09-08] MEDS: levETIRAcetam 500 MG TABLET (FP) PO SCH ×2 (10:24→22:10)
[2019-09-08] MEDS: MINERAL OIL/PETROLAT/WATER TOPICAL CREAM 113 GM JAR TP SCH (10:24)
[2019-09-08] MEDS: PRENATAL VITAMINS W/ FOLIC ACID TABLET (FP) PO SCH (10:24)
[2019-09-08] MEDS: FUROSEMIDE 20 MG TABLET (FP) PO SCH (10:24)
[2019-09-08] MEDS: FERROUS SO4 325 MG TABLET (FP) PO SCH ×2 (10:24→16:58)
[2019-09-08] MEDS: METOPROLOL TARTRATE 50 MG TABLET (FP) PO SCH (10:24)
[2019-09-08] MEDS: FLUTICASONE PROP 0.05% 16 GM NASAL SPRAY NS SCH (10:25)
--- NOTE | 2019-09-08 12:25 | PN ---
[facility] CIWA - CIWA Score Nausea/Vomitin-No Nausea/No Vomiting Muscle Tremors: 1-None Visible, but Anderson Anxiety: 2 Agitation: 1-Slight > Activity Paroxysmal Sweats: 2 Orientation: 0-Oriented Tacttile Disturbances: 0-None Auditory Disturbances: 0-None Visual Disturbances: 0-None Headache: 0-None Present CIWA-Ar Total Score: 6 BHS Progress Note (SOAP) Subjective: Complaints of fatigue, anxiety and sweats. Objective: 09/08/19 12:24 Vital Signs 09/08/19 09/08/19 05:09 09:27 Temperature 97.3 F L 97.3 F L Pulse Rate 62 76 Respiratory 20 18 Rate Blood Pressure 137/87 138/96 O2 Sat by Pulse 100 100 Oximetry (%) Laboratory Last Values WBC 3.2 K/mm3 (4.0-10.0) L 09/07/19 08:15 RBC 3.09 M/mm3 (4.00-5.60) L 09/07/19 08:15 Hgb 9.9 GM/dL (11.7-16.9) L 09/07/19 08:15 Hct 30.0 % (35.4-49) L 09/07/19 08:15 MCV 97.3 fl (80-96) H 09/07/19 08:15 MCH 32.1 pg (25.7-33.7) 09/07/19 08:15 MCHC 33.0 g/dl (32.0-35.9) 09/07/19 08:15 RDW 15.0 % (11.9-15.9) 09/07/19 08:15 Plt Count 227 K/MM3 (134-434) 09/07/19 08:15 MPV 8.5 fl (7.5-11.1) D 09/07/19 08:15 Sodium 133 mmol/L (136-145) L 09/07/19 08:15 Potassium 4.8 mmol/L (3.5-5.1) 09/07/19 08:15 Chloride 98 mmol/L (98-107) 09/07/19 08:15 Carbon Dioxide 25 mmol/L (21-32) 09/07/19 08:15 Anion Gap 10 MMOL/L (8-16) 09/07/19 08:15 BUN 17.8 mg/dL (7-18) 09/07/19 08:15 Creatinine 1.4 mg/dL (0.55-1.3) H 09/07/19 08:15 Est GFR (CKD-EPI)AfAm 63.29 09/07/19 08:15 Est GFR (CKD-EPI)NonAf 54.60 09/07/19 08:15 Random Glucose 81 mg/dL (74-106) 09/07/19 08:15 Fasting Glucose 81 mg/dL (74-106) 09/07/19 08:15 Calcium 9.5 mg/dL (8.5-10.1) 09/07/19 08:15 Total Bilirubin 0.2 mg/dL (0.2-1) 09/07/19 08:15 AST 47 U/L (15-37) H 09/07/19 08:15 ALT 38 U/L (13-61) 09/07/19 08:15 Alkaline Phosphatase 106 U/L (45-117) 09/07/19 08:15 Total Protein 8.0 g/dl (6.4-8.2) 09/07/19 08:15 Albumin 3.8 g/dl (3.4-5.0) 09/07/19 08:15 Syphilis Serology Non-reactive (NONREACTIVE) 09/05/19 10:00 COVID-19 (NAYE) Not detected (Not Detected) 09/05/19 11:10 HIV Ag/Ab Combo Qual Negative (NEGATIVE) 09/05/19 10:00 Labs noted. Assessment: 09/08/19 12:24 Alert and oriented x3, in no acute respiratory distress. Full ROM, ambulatory with walker. Skin warm to touch. Mild withdrawal symptoms. Plan: Continue detox protocol.
[2019-09-08] MEDS: THIAMINE HCL 100 MG TABLET (FP) PO SCH (22:10)
[2019-09-08] MEDS: ATORVASTATIN CA 10 MG TABLET (FP) PO SCH (22:10)
[2019-09-09] MEDS: chlordiazePOXIDE HCL 10 MG CAPSULE PO SCH ×2 (05:38→16:53)
[2019-09-09] MEDS: BRIMONIDINE TARTRATE 0.2% OPHTHALMIC 5 ML BOTTLE OU SCH ×3 (05:39→21:39)
[2019-09-09] MEDS: FERROUS SO4 325 MG TABLET (FP) PO SCH ×2 (07:11→16:52)
[2019-09-09] MEDS: FLUTICASONE PROP 0.05% 16 GM NASAL SPRAY NS SCH (09:57)
[2019-09-09] MEDS: levETIRAcetam 500 MG TABLET (FP) PO SCH ×2 (09:57→21:39)
[2019-09-09] MEDS: PRENATAL VITAMINS W/ FOLIC ACID TABLET (FP) PO SCH (09:58)
[2019-09-09] MEDS: MINERAL OIL/PETROLAT/WATER TOPICAL CREAM 113 GM JAR TP SCH (09:58)
--- NOTE | 2019-09-09 13:30 | PN ---
S CIWA - CIWA Score Nausea/Vomitin-No Nausea/No Vomiting Muscle Tremors: None Anxiety: 2 Agitation: 2 Paroxysmal Sweats: No Perspiration Orientation: 0-Oriented Tacttile Disturbances: 0-None Auditory Disturbances: 0-None Visual Disturbances: 0-None Headache: 0-None Present CIWA-Ar Total Score: 4 S Progress Note (SOAP) Subjective: Anxious, stated he is for discharge tomorrow and requesting inpatient rehab. Patient stated he notified his counselor early during admission that he wants rehab here at [facility]. Pt is afraid of relapsing and therefore requesting inpatient rehab. Objective: 09/09/19 13:25 Last Vital Signs Temp Pulse Resp BP Pulse Ox 98.0 F 80 18 124/73 100 09/09/19 08:56 09/09/19 08:56 09/09/19 08:56 09/09/19 08:56 09/09/19 05:29 Laboratory Tests 09/05/19 09/05/19 09/05/19 10:00 10:00 10:00 WBC 3.4 L RBC 3.36 L Hgb 10.6 L Hct 31.9 L MCV 95.1 MCH 31.4 MCHC 33.1 RDW 15.1 Plt Count 281 MPV 7.5 Sodium 131 L Potassium 4.4 Chloride 96 L Carbon Dioxide 28 Anion Gap 7 L BUN 11.9 Creatinine 1.2 Est GFR (CKD-EPI)AfAm 76.25 Est GFR (CKD-EPI)NonAf 65.79 Random Glucose 167 H Fasting Glucose Calcium 8.8 Total Bilirubin 0.7 AST 86 H ALT 54 Alkaline Phosphatase 156 H Total Protein 9.1 H Albumin 4.8 Syphilis Serology Non-reactive COVID-19 (NAYE) HIV Ag/Ab Combo Qual 09/05/19 09/05/19 09/07/19 10:00 11:10 08:15 WBC RBC Hgb Hct MCV MCH MCHC RDW Plt Count MPV Sodium 133 L Potassium 4.8 Chloride 98 Carbon Dioxide 25 Anion Gap 10 BUN 17.8 Creatinine 1.4 H Est GFR (CKD-EPI)AfAm 63.29 Est GFR (CKD-EPI)NonAf 54.60 Random Glucose 81 Fasting Glucose 81 Calcium 9.5 Total Bilirubin 0.2 AST 47 H ALT 38 Alkaline Phosphatase 106 Total Protein 8.0 Albumin 3.8 Syphilis Serology COVID-19 (NAYE) Not detected HIV Ag/Ab Combo Qual Negative 09/07/19 08:15 WBC 3.2 L RBC 3.09 L Hgb 9.9 L Hct 30.0 L MCV 97.3 H MCH 32.1 MCHC 33.0 RDW 15.0 Plt Count 227 MPV 8.5 D Sodium Potassium Chloride Carbon Dioxide Anion Gap BUN Creatinine Est GFR (CKD-EPI)AfAm Est GFR (CKD-EPI)NonAf Random Glucose Fasting Glucose Calcium Total Bilirubin AST ALT Alkaline Phosphatase Total Protein Albumin Syphilis Serology COVID-19 (NAYE) HIV Ag/Ab Combo Qual Labs reviewed: anemia, JEANNETTE Assessment: 09/09/19 13:27 Withdrawal sxs Noted with anemia and JEANNETTE Plan: Continue detox Encourage PO water intake Patient scheduled for discharge to [facility] rehab tomorrow; please keep patient until Tuesday if no rehab bed available in preventing relapsing Anemia: most likely due to alcoholism, encourage abstinence, continue vitamins, follow up with PCP for management, encouraged inpatient rehab JEANNETTE: encouraged to drink more water
[2019-09-09] MEDS: FUROSEMIDE 20 MG TABLET (FP) PO SCH (15:00)
[2019-09-09] MEDS: METOPROLOL TARTRATE 50 MG TABLET (FP) PO SCH (15:00)
[2019-09-09] MEDS: ATORVASTATIN CA 10 MG TABLET (FP) PO SCH (21:39)
[2019-09-09] MEDS: THIAMINE HCL 100 MG TABLET (FP) PO SCH (21:39)
[2019-09-10] MEDS ORDERED: chlordiazePOXIDE HCL 10 MG CAPSULE PO ONE (05:00)
[2019-09-10] MEDS: BRIMONIDINE TARTRATE 0.2% OPHTHALMIC 5 ML BOTTLE OU SCH (05:24)
[2019-09-10] MEDS: FERROUS SO4 325 MG TABLET (FP) PO SCH (07:14)
[2019-09-10 09:15] VITALS: BP 127/80; PULSE 87; TEMP 97.8
[2019-09-10] MEDS: MINERAL OIL/PETROLAT/WATER TOPICAL CREAM 113 GM JAR TP SCH (10:45)
[2019-09-10] MEDS: METOPROLOL TARTRATE 50 MG TABLET (FP) PO SCH (10:46)
[2019-09-10] MEDS: FUROSEMIDE 20 MG TABLET (FP) PO SCH (10:46)
[2019-09-10] MEDS: FLUTICASONE PROP 0.05% 16 GM NASAL SPRAY NS SCH (10:47)
[2019-09-10] MEDS: PRENATAL VITAMINS W/ FOLIC ACID TABLET (FP) PO SCH (10:47)
[2019-09-10] MEDS: levETIRAcetam 500 MG TABLET (FP) PO SCH (10:47)
--- NOTE | 2019-09-10 10:56 | PN ---
[facility] CIWA - CIWA Score Nausea/Vomitin-No Nausea/No Vomiting Muscle Tremors: None Anxiety: 1-Mildly Anxious Agitation: 0-Normal Activity Paroxysmal Sweats: No Perspiration Orientation: 0-Oriented Tacttile Disturbances: 0-None Auditory Disturbances: 0-None Visual Disturbances: 0-None Headache: 0-None Present CIWA-Ar Total Score: 1 S Progress Note (SOAP) Subjective: alert,no complaint Objective: 09/10/19 10:54 Vital Signs Temperature 97.8 F 09/10/19 08:36 Pulse Rate 87 09/10/19 08:36 Respiratory Rate 18 09/10/19 08:36 Blood Pressure 127/80 09/10/19 08:36 O2 Sat by Pulse Oximetry (%) 98 09/10/19 05:18 Assessment: 09/10/19 10:54 detox completed,no withdrawal symptom Plan: stable for discharge today,follow up with after care program as arrangement [facility]
--- NOTE | 2019-09-10 10:57 | DS ---
[facility] Detox Discharge Summary Admission Date: 09/05/19 Discharge Date: 09/10/19 - History Present History: Alcohol Dependence Additional Comments: alert,oriented x 3 ambulation on the unit with walker lung clear bilaterally on auscultation abdomen soft,no distension,no pain detox completed,no withdrawal symptom stable for discharge today follow up with after care program [facility] as arrangement total time of discharge 35 minutes Pertinent Past History: hypertension hyperlipidemia seizure copd left hip arthritis anemia bipolar disorder ptsd ambulation with walker glaucoma - Physical Exam Results Vital Signs: Vital Signs Temperature 97.8 F 09/10/19 08:36 Pulse Rate 87 09/10/19 08:36 Respiratory Rate 18 09/10/19 08:36 Blood Pressure 127/80 09/10/19 08:36 O2 Sat by Pulse Oximetry (%) 98 09/10/19 05:18 Pertinent Admission Physical Exam Findings: withdrawal signs and symptom Laboratory Last Values WBC 3.2 K/mm3 (4.0-10.0) L 09/07/19 08:15 RBC 3.09 M/mm3 (4.00-5.60) L 09/07/19 08:15 Hgb 9.9 GM/dL (11.7-16.9) L 09/07/19 08:15 Hct 30.0 % (35.4-49) L 09/07/19 08:15 MCV 97.3 fl (80-96) H 09/07/19 08:15 MCH 32.1 pg (25.7-33.7) 09/07/19 08:15 MCHC 33.0 g/dl (32.0-35.9) 09/07/19 08:15 RDW 15.0 % (11.9-15.9) 09/07/19 08:15 Plt Count 227 K/MM3 (134-434) 09/07/19 08:15 MPV 8.5 fl (7.5-11.1) D 09/07/19 08:15 Sodium 133 mmol/L (136-145) L 09/07/19 08:15 Potassium 4.8 mmol/L (3.5-5.1) 09/07/19 08:15 Chloride 98 mmol/L (98-107) 09/07/19 08:15 Carbon Dioxide 25 mmol/L (21-32) 09/07/19 08:15 Anion Gap 10 MMOL/L (8-16) 09/07/19 08:15 BUN 17.8 mg/dL (7-18) 09/07/19 08:15 Creatinine 1.4 mg/dL (0.55-1.3) H 09/07/19 08:15 Est GFR (CKD-EPI)AfAm 63.29 09/07/19 08:15 Est GFR (CKD-EPI)NonAf 54.60 09/07/19 08:15 Random Glucose 81 mg/dL (74-106) 09/07/19 08:15 Fasting Glucose 81 mg/dL (74-106) 09/07/19 08:15 Calcium 9.5 mg/dL (8.5-10.1) 09/07/19 08:15 Total Bilirubin 0.2 mg/dL (0.2-1) 09/07/19 08:15 AST 47 U/L (15-37) H 09/07/19 08:15 ALT 38 U/L (13-61) 09/07/19 08:15 Alkaline Phosphatase 106 U/L (45-117) 09/07/19 08:15 Total Protein 8.0 g/dl (6.4-8.2) 09/07/19 08:15 Albumin 3.8 g/dl (3.4-5.0) 09/07/19 08:15 Syphilis Serology Non-reactive (NONREACTIVE) 09/05/19 10:00 COVID-19 (NAYE) Not detected (Not Detected) 09/05/19 11:10 HIV Ag/Ab Combo Qual Negative (NEGATIVE) 09/05/19 10:00 Vital Signs Temperature 97.8 F 09/10/19 08:36 Pulse Rate 87 09/10/19 08:36 Respiratory Rate 18 09/10/19 08:36 Blood Pressure 127/80 09/10/19 08:36 O2 Sat by Pulse Oximetry (%) 98 09/10/19 05:18 - Treatment Hospital Course: Detox Protocol Followed, Detoxed Safely, Responded well, Discharged Condition Good, Rehab Referral Accepted Patient has Accepted a Rehab Referral to: [facility] - Medication Discharge Medications: Ambulatory Orders Brimonidine Tartrate [Alphagan 0.2% -] 1 drop OU TID 08/04/18 Folic Acid - 1 mg PO DAILY 08/04/18 Multivitamin [One-Daily Multi-Vitamin] 1 each PO DAILY 08/04/18 Simvastatin [Zocor -] 20 mg PO HS 08/04/18 Metoprolol Tartrate [Lopressor -] 100 mg PO BID 03/06/19 Thiamine HCl [Vitamin B1 -] 100 mg PO DAILY 30 Days #30 tablet 03/06/19 Amlodipine Besylate [Norvasc -] 10 mg PO DAILY 09/05/19 Phenytoin Na Extended [Dilantin -] 100 mg PO TID 09/05/19 levETIRAcetam [Keppra -] 1,000 mg PO BID 09/05/19 - Diagnosis (1) Alcohol dependence with uncomplicated withdrawal Current Visit: Yes Status: Acute (2) Anemia Current Visit: Yes Status: Acute (3) HTN (hypertension) Current Visit: Yes Status: Chronic Qualifiers: Hypertension type: essential hypertension Qualified Code(s): I10 - Essential (primary) hypertension (4) History of posttraumatic stress disorder (PTSD) Current Visit: Yes Status: Chronic (5) Seizure disorder Current Visit: Yes Status: Chronic (6) Bipolar disorder Current Visit: No Status: Chronic (7) Arthritis of left hip Current Visit: Yes Status: Acute (8) Walker as ambulation aid Current Visit: Yes Status: Acute - AMA Did Patient Leave Against Medical Advice: No
== END 2019-09-10 11:39 | disposition other institution (70) | DRG 897 ==
LOC: YASAS 08:11 → Y6N 10:24
PROVIDERS: ADMIT Allergy & Immunology; ATTEND Allergy & Immunology
PROC: HZ2ZZZZ Detoxification Services for Substance Abuse Treatment (ICD-10-PCS; principal; 2019-09-05)
DX: F10.230 Alcohol dependence with withdrawal, uncomplicated (principal); N17.9 Acute kidney failure, unspecified; F10.24 Alcohol dependence with alcohol-induced mood disorder; F10.282 Alcohol dependence with alcohol-induced sleep disorder; F43.10 Post-traumatic stress disorder, unspecified; D64.9 Anemia, unspecified; E78.5 Hyperlipidemia, unspecified; I10 Essential (primary) hypertension; J43.0 Unilateral pulmonary emphysema [MacLeod's syndrome]; K21.9 Gastro-esophageal reflux disease without esophagitis; G40.909 Epilepsy, unspecified, not intractable, without status epilepticus; H40.9 Unspecified glaucoma; H54.62 Unqualified visual loss, left eye, normal vision right eye; M16.12 Unilateral primary osteoarthritis, left hip; M17.0 Bilateral primary osteoarthritis of knee; K40.91 Unilateral inguinal hernia, without obstruction or gangrene, recurrent; J40 Bronchitis, not specified as acute or chronic; Z87.820 Personal history of traumatic brain injury; Z99.89 Dependence on other enabling machines and devices
CPT/HCPCS: 36415; 71046-TC-FY; 80053; 82947; 85027; 86780; 87389; U0003

== ENCOUNTER 2019-09-10 11:27 | Inpatient (IN) | payer OTHER ==
[2019-09-10] MEDS ORDERED: LOPERAMIDE HCL 2 MG CAPSULE PO PRN (12:34)
[2019-09-10] MEDS ORDERED: MENTHOL/PHENOL 1 EACH UD MM PRN (12:34)
[2019-09-10] MEDS ORDERED: MAGNESIUM HYDROX 2400MG/30ML ORAL SUSPENSION 30 ML CUP PO PRN (12:34)
[2019-09-10] MEDS ORDERED: MAG HYDROX/AL HYDROX/SIMETH 30 ML UNIT-DOSE CUP PO PRN (12:34)
[2019-09-10] MEDS ORDERED: NICOTINE POLACRILEX 2 MG GUM BUC PRN (12:34)
[2019-09-10] MEDS ORDERED: P-EPHED 60MG/TRIPROLIDI 2.5MG TABLET PO PRN (12:34)
[2019-09-10] MEDS ORDERED: IBUPROFEN 400 MG TABLET (FP) PO PRN (12:34)
[2019-09-10] MEDS ORDERED: MAGNESIUM CITRATE 300 ML BOTTLE PO PRN (12:34)
[2019-09-10] MEDS ORDERED: guaiFENesin 200 MG/10 ML 10 ML UNIT-DOSE CUPS PO PRN (12:34)
--- NOTE | 2019-09-10 12:34 | HP ---
[facility] Rehab Assess/Revision - Admission History Admitted to Rehab from: [facility] Date of Admission to Rehab: 09/10/19 - Vital signs Vital Signs: Vital Signs Period Temp Pulse Resp BP Sys/David Pulse Ox Last 24 Hr 98.4 F 68 18 136/90 - Findings Detox History & Physical reviewed: Yes Concur with findings: Yes Comments/Additional Findings: for rehab as protocol Inpatient Rehab Admission - Rehab Decision to Admit Inpatient rehab admission?: Yes - Initial Determination Are CD services needed?: Yes Free of communicable disease: Yes Not in need of hospitalization: Yes - Rehab Admission Criteria Previous failed treatment: Yes Poor recovery environment: Yes Comorbidities: Yes Lacks judgement: No Patient is meeting Inpatient Rehab admission criteria:: Yes
[2019-09-10] MEDS: BRIMONIDINE TARTRATE 0.2% OPHTHALMIC 5 ML BOTTLE OU SCH ×2 (15:17→21:09)
[2019-09-10] MEDS: hydrOXYzine PAMOATE 25 MG CAPSULE (FP) PO SCH ×3 (15:18→21:07)
[2019-09-10] MEDS: MELATONIN 5 MG TABLETS PO SCH (21:07)
[2019-09-10] MEDS: THIAMINE HCL 100 MG TABLET (FP) PO SCH (21:07)
[2019-09-10] MEDS: FERROUS SO4 325 MG TABLET (FP) PO SCH (21:10)
[2019-09-10] MEDS: ATORVASTATIN CA 10 MG TABLET (FP) PO SCH (21:10)
[2019-09-10] MEDS: levETIRAcetam 500 MG TABLET (FP) PO SCH (21:11)
[2019-09-11] MEDS ORDERED: PT OWN MED DRAWER 7, Y5N ONE (05:24)
[2019-09-11] MEDS: BRIMONIDINE TARTRATE 0.2% OPHTHALMIC 5 ML BOTTLE OU SCH ×3 (06:41→21:04)
[2019-09-11] MEDS: hydrOXYzine PAMOATE 25 MG CAPSULE (FP) PO SCH ×2 (06:42→09:41)
--- NOTE | 2019-09-11 08:02 | CONSULT ---
[facility] Psychiatric Consult - Data Date of interview: 09/11/19 Admission source: 6N Identifying data: Mr Fitzpatrick is a 59 years old single Black, father of 4 children, unemployed receiving SSD, homeless living in a nursing home in [place] admitted from detox on 09/10/19 for inpatient rehabilitation treatment for alcohol Substance Abuse History: Reports history of alcohol use. 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 Patient walks with a cane. Psychiatric History: Patient is known for three previous admissions to this facility and he was recently seen by teletypewriter installer on 09/06/19 while admited to detox. 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 Reports that due to his addiction, he stopped seeing therapist and the psychiatrist at [facility] in [facility] early 2018. When seen by teletypewriter installer on 09/06/19 in detox, he was ordered Melatonin 5 mg/hs prn for insomnia. Patient denies previous psychiatric hospitalizations or suicidal attempt. At present, denies experiencing psychotic, manic or depressive symptoms, S/H ideations. However, reports sleeping poorly Physical/Sexual Abuse/Trauma History: Patient denies history of any type of abuse. Served in the [employer] for two years from [id number]. 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 Patient reports a background of " less than honorable discharge ". Mr Fitzpatrick reports no combat experience. Told teletypewriter installer that he was court marshaled for drinking, fighting and stealing Additional Comment: Reports history court martial for drinking, fighting and stealing. Reports being given 2 tickets for drinking Mental Status Exam - Mental Status Exam Alert and Oriented to: Time, Place, Person Cognitive Function: Fair Patient Appearance: Well Groomed Mood: Hopeful, Euthymic Patient Behavior: Cooperative Speech Pattern: Clear Voice Loudness: Normal Thought Process: Intact, Goal Oriented Hallucinations: Denies Suicidal Ideation: Denies Homicidal Ideation: Denies Insight/Judgement: Fair Sleep: Poorly Appetite: Good Muscle strength/Tone: Normal Gait/Station: Other (uses a cane as ambulatory aid) Psychiatric Findings - Problem List ([place] 1, 2,3) (1) Bipolar disorder Current Visit: No Status: Chronic (2) PTSD (post-traumatic stress disorder) Current Visit: No Status: Chronic (3) Alcohol-induced sleep disorder Current Visit: No Status: Acute (4) Alcohol dependence Current Visit: Yes Status: Acute (5) Anemia Current Visit: No Status: Chronic (6) COPD (chronic obstructive pulmonary disease) Current Visit: No Status: Chronic Qualifiers: COPD type: emphysema Emphysema type: unilateral Qualified Code(s): J43.0 - Unilateral pulmonary emphysema [MacLeod's syndrome] (7) HTN (hypertension) Current Visit: No Status: Chronic Qualifiers: Hypertension type: essential hypertension Qualified Code(s): I10 - Essential (primary) hypertension (8) Seizure disorder Current Visit: No Status: Chronic (9) Inguinal hernia Current Visit: No Status: Resolved Qualifiers: Obstruction and gangrene presence: without obstruction or gangrene Laterality: unilateral Recurrence: recurrent Qualified Code(s): K40.91 - Unilateral inguinal hernia, without obstruction or gangrene, recurrent - Initial Treatment Plan Initial Treatment Plan: 1) Continue Melatonin 10 mg po HS prn for insomnia. 2) Continue inpatient rehabilitation
[2019-09-11] MEDS: levETIRAcetam 500 MG TABLET (FP) PO SCH ×2 (09:41→21:03)
[2019-09-11] MEDS: METOPROLOL TARTRATE 50 MG TABLET (FP) PO SCH (09:41)
[2019-09-11] MEDS: FERROUS SO4 325 MG TABLET (FP) PO SCH ×2 (09:41→21:04)
[2019-09-11] MEDS: PRENATAL VITAMINS W/ FOLIC ACID TABLET (FP) PO SCH (09:41)
[2019-09-11] MEDS ORDERED: NICOTINE 7 MG/24 HOURS TOPICAL PATCH TD SCH (10:00)
[2019-09-11] MEDS: hydrOXYzine PAMOATE 25 MG CAPSULE (FP) PO PRN (21:03)
[2019-09-11] MEDS: THIAMINE HCL 100 MG TABLET (FP) PO SCH (21:03)
[2019-09-11] MEDS: MELATONIN 5 MG TABLETS PO SCH (21:03)
[2019-09-11] MEDS: ATORVASTATIN CA 10 MG TABLET (FP) PO SCH (21:04)
[2019-09-12] MEDS ORDERED: PT OWN MED DRAWER 7, Y5N ONE ×3 (06:16→13:31)
[2019-09-12] MEDS: BRIMONIDINE TARTRATE 0.2% OPHTHALMIC 5 ML BOTTLE OU SCH ×3 (06:29→21:14)
[2019-09-12] MEDS: ERGOCALCIFEROL (VIT D2) 50,000 UNIT (1.25 MG) CAPSULE PO SCH (10:14)
[2019-09-12] MEDS: levETIRAcetam 500 MG TABLET (FP) PO SCH ×2 (10:14→21:13)
[2019-09-12] MEDS: FERROUS SO4 325 MG TABLET (FP) PO SCH ×2 (10:14→21:13)
[2019-09-12] MEDS: PRENATAL VITAMINS W/ FOLIC ACID TABLET (FP) PO SCH (10:15)
[2019-09-12] MEDS: METOPROLOL TARTRATE 50 MG TABLET (FP) PO SCH (10:15)
[2019-09-12] MEDS ORDERED: cloNIDine-TTS 0.3 MG /24 HRS PATCH.TDWK TD ONE ×3 (13:12→22:00)
--- NOTE | 2019-09-12 13:23 | PN ---
[facility] Progress Note Note: Patient was admitted to rehab with a patch. He did not know what the patch was for, but it had to be changed every Tuesday. I called [facility], who informed me that he was on a Clonidine 0.3 patch. I ordered the patch for the patient; to be changed this evening at 2200. Vital Signs Period Temp Pulse Resp BP Sys/David Pulse Ox Last 24 Hr 97.0 F 61-92 16 109-159/67-83 95-96
[2019-09-12] MEDS: MELATONIN 5 MG TABLETS PO SCH (21:12)
[2019-09-12] MEDS: ATORVASTATIN CA 10 MG TABLET (FP) PO SCH (21:13)
[2019-09-12] MEDS: hydrOXYzine PAMOATE 25 MG CAPSULE (FP) PO PRN (21:13)
[2019-09-12] MEDS: MINERAL OIL/PET HY-PHL TOPICAL OINTMENT 454 GM JAR TP SCH (21:14)
[2019-09-12] MEDS: THIAMINE HCL 100 MG TABLET (FP) PO SCH (21:19)
[2019-09-13] MEDS: BRIMONIDINE TARTRATE 0.2% OPHTHALMIC 5 ML BOTTLE OU SCH ×3 (06:11→21:20)
[2019-09-13] MEDS: MINERAL OIL/PET HY-PHL TOPICAL OINTMENT 454 GM JAR TP SCH (09:51)
[2019-09-13] MEDS: FERROUS SO4 325 MG TABLET (FP) PO SCH ×2 (09:52→21:19)
[2019-09-13] MEDS: HYDROCHLOROTHIAZIDE 12.5 MG CAPSULE (FP) PO SCH (09:52)
[2019-09-13] MEDS: METOPROLOL TARTRATE 50 MG TABLET (FP) PO SCH (09:52)
[2019-09-13] MEDS: levETIRAcetam 500 MG TABLET (FP) PO SCH ×2 (09:52→21:19)
[2019-09-13] MEDS: PRENATAL VITAMINS W/ FOLIC ACID TABLET (FP) PO SCH (09:53)
[2019-09-13] MEDS ORDERED: FUROSEMIDE 20 MG TABLET (FP) PO SCH (10:00)
[2019-09-13] MEDS ORDERED: PT OWN MED DRAWER 7, Y5N ONE (10:22)
[2019-09-13] MEDS: MELATONIN 5 MG TABLETS PO SCH (21:18)
[2019-09-13] MEDS: THIAMINE HCL 100 MG TABLET (FP) PO SCH (21:18)
[2019-09-13] MEDS: hydrOXYzine PAMOATE 25 MG CAPSULE (FP) PO PRN (21:19)
[2019-09-13] MEDS: ATORVASTATIN CA 10 MG TABLET (FP) PO SCH (21:19)
[2019-09-14] MEDS: BRIMONIDINE TARTRATE 0.2% OPHTHALMIC 5 ML BOTTLE OU SCH ×3 (06:33→21:28)
[2019-09-14] MEDS: MINERAL OIL/PET HY-PHL TOPICAL OINTMENT 454 GM JAR TP SCH (09:33)
[2019-09-14] MEDS: FERROUS SO4 325 MG TABLET (FP) PO SCH ×2 (09:33→21:28)
[2019-09-14] MEDS: HYDROCHLOROTHIAZIDE 12.5 MG CAPSULE (FP) PO SCH (09:33)
[2019-09-14] MEDS: levETIRAcetam 500 MG TABLET (FP) PO SCH ×2 (09:33→21:28)
[2019-09-14] MEDS: PRENATAL VITAMINS W/ FOLIC ACID TABLET (FP) PO SCH (09:34)
[2019-09-14] MEDS: METOPROLOL TARTRATE 50 MG TABLET (FP) PO SCH (09:34)
[2019-09-14] MEDS ORDERED: PT OWN MED DRAWER 7, Y5N ONE ×2 (11:40→20:15)
[2019-09-14] MEDS ORDERED: HYDROCHLOROTHIAZIDE 12.5 MG CAPSULE (FP) PO SCH (13:39)
--- NOTE | 2019-09-14 13:45 | PN ---
S Progress Note Note: PATIENT C/O SWELLING TO BILATERAL FEET/ANKLES. ADMITTED TO REHAB FOR ALCOHOL DEPENDENCE. PMH INCLUDES HLD, HTN. PATIENT REPORTS SYMPTOMS ARE CHRONIC BUT HAVE WORSENED SINCE ADMISSION TO [facility]. PATIENT DENIES CP, SOB, COUGH AND DIZZINESS. Vital Signs Temperature 97.3 F L 09/14/19 07:03 Pulse Rate 91 H 09/14/19 09:00 Respiratory Rate 17 09/14/19 09:00 Blood Pressure 112/69 09/14/19 09:00 O2 Sat by Pulse Oximetry (%) 98 09/14/19 07:03 PE: ALERT AND ORIENTED X 3 SKIN WARM AND DRY NECK SUPPLE, NO JVD EOMS INTACT BL EXT AMB WITH WALKER, BLE WITH 3+ PITTING PEDAL/ANKLE EDEMA A/P: CHRONIC EDEMA BLE TEDS TO BLE LEG ELEVATION WHILE IN BED INCREASE HCTZ TO 25MG PO DAILY MONITOR CLINICALLY
[2019-09-14] MEDS: MELATONIN 5 MG TABLETS PO SCH (21:28)
[2019-09-14] MEDS: THIAMINE HCL 100 MG TABLET (FP) PO SCH (21:28)
[2019-09-14] MEDS: ATORVASTATIN CA 10 MG TABLET (FP) PO SCH (21:28)
[2019-09-15] MEDS: BRIMONIDINE TARTRATE 0.2% OPHTHALMIC 5 ML BOTTLE OU SCH ×3 (06:39→21:16)
[2019-09-15] MEDS: MINERAL OIL/PET HY-PHL TOPICAL OINTMENT 454 GM JAR TP SCH (10:06)
[2019-09-15] MEDS: FERROUS SO4 325 MG TABLET (FP) PO SCH ×2 (10:07→21:15)
[2019-09-15] MEDS: levETIRAcetam 500 MG TABLET (FP) PO SCH ×2 (10:07→21:15)
[2019-09-15] MEDS: HYDROCHLOROTHIAZIDE 25 MG TABLET (FP) PO SCH (10:07)
[2019-09-15] MEDS: METOPROLOL TARTRATE 50 MG TABLET (FP) PO SCH (10:07)
[2019-09-15] MEDS: PRENATAL VITAMINS W/ FOLIC ACID TABLET (FP) PO SCH (10:07)
[2019-09-15] MEDS ORDERED: PT OWN MED DRAWER 7, Y5N ONE (15:16)
[2019-09-15] MEDS: MELATONIN 5 MG TABLETS PO SCH (21:14)
[2019-09-15] MEDS: hydrOXYzine PAMOATE 25 MG CAPSULE (FP) PO PRN (21:15)
[2019-09-15] MEDS: ATORVASTATIN CA 10 MG TABLET (FP) PO SCH (21:16)
[2019-09-15] MEDS: THIAMINE HCL 100 MG TABLET (FP) PO SCH (21:16)
[2019-09-16] MEDS: BRIMONIDINE TARTRATE 0.2% OPHTHALMIC 5 ML BOTTLE OU SCH ×3 (06:13→21:18)
[2019-09-16] MEDS: levETIRAcetam 500 MG TABLET (FP) PO SCH ×2 (09:23→21:17)
[2019-09-16] MEDS: PRENATAL VITAMINS W/ FOLIC ACID TABLET (FP) PO SCH (09:23)
[2019-09-16] MEDS: HYDROCHLOROTHIAZIDE 25 MG TABLET (FP) PO SCH (09:24)
[2019-09-16] MEDS: METOPROLOL TARTRATE 50 MG TABLET (FP) PO SCH (09:24)
[2019-09-16] MEDS: FERROUS SO4 325 MG TABLET (FP) PO SCH ×2 (09:24→21:17)
[2019-09-16] MEDS: MINERAL OIL/PET HY-PHL TOPICAL OINTMENT 454 GM JAR TP SCH (09:25)
[2019-09-16] MEDS: ACETAMINOPHEN 325 MG TABLET (FP) PO PRN (09:25)
[2019-09-16 12:41] LABS: ALBUMIN 3.9 g/dl (3.4-5.0); BILIRUBIN,TOTAL 0.3 mg/dL (0.2-1); CALCIUM 9.5 mg/dL (8.5-10.1); CREATININE 1.1 mg/dL (0.55-1.3); POTASSIUM 4.2 mmol/L (3.5-5.1); TOT PROT 7.9 g/dl (6.4-8.2)
[2019-09-16] MEDS: THIAMINE HCL 100 MG TABLET (FP) PO SCH (21:16)
[2019-09-16] MEDS: MELATONIN 5 MG TABLETS PO SCH (21:16)
[2019-09-16] MEDS: ATORVASTATIN CA 10 MG TABLET (FP) PO SCH (21:17)
[2019-09-16] MEDS: hydrOXYzine PAMOATE 25 MG CAPSULE (FP) PO PRN (21:17)
[2019-09-17] MEDS: BRIMONIDINE TARTRATE 0.2% OPHTHALMIC 5 ML BOTTLE OU SCH ×3 (05:26→21:09)
[2019-09-17] MEDS ORDERED: PT OWN MED DRAWER 7, Y5N ONE (08:26)
[2019-09-17] MEDS: PRENATAL VITAMINS W/ FOLIC ACID TABLET (FP) PO SCH (09:53)
[2019-09-17] MEDS: METOPROLOL TARTRATE 50 MG TABLET (FP) PO SCH (09:53)
[2019-09-17] MEDS: FERROUS SO4 325 MG TABLET (FP) PO SCH ×2 (09:53→21:08)
[2019-09-17] MEDS: levETIRAcetam 500 MG TABLET (FP) PO SCH ×2 (09:53→21:08)
[2019-09-17] MEDS: MINERAL OIL/PET HY-PHL TOPICAL OINTMENT 454 GM JAR TP SCH (09:53)
[2019-09-17] MEDS: HYDROCHLOROTHIAZIDE 25 MG TABLET (FP) PO SCH (09:53)
--- NOTE | 2019-09-17 12:30 | PN ---
S Progress Note Note: Patient c/o itching to stomach area. States having symptoms x 2 days. Denies any recent changes in soap/detergent/diet. Vital Signs Temperature 98.0 F 09/17/19 06:53 Pulse Rate 70 09/17/19 10:00 Respiratory Rate 18 09/17/19 06:53 Blood Pressure 147/74 09/17/19 10:00 O2 Sat by Pulse Oximetry (%) 96 09/17/19 06:53 Laboratory Tests 09/16/19 07:20 Sodium 134 L Potassium 4.2 Chloride 103 Carbon Dioxide 30 Anion Gap 1 L BUN 15.0 Creatinine 1.1 Est GFR (CKD-EPI)AfAm 84.71 Est GFR (CKD-EPI)NonAf 73.09 Random Glucose 86 Calcium 9.5 Total Bilirubin 0.3 AST 18 ALT 16 Alkaline Phosphatase 71 Total Protein 7.9 Albumin 3.9 PE alert and oriented x 3 skin warm, + macular-brownish rash noted on mid abdominal and lateral abdominal area. No vesicles, plaques or redness noted gi soft, bs+, nt ext full rom, amb ad fortino A/P Prurutis Rash to abdomen will order hydrocortisone 1% cream bid to affected area monitor clinically
[2019-09-17] MEDS: HYDROCORTISONE 1% TOPICAL CREAM 30 GM TUBE TP PRN (17:43)
[2019-09-17] MEDS: THIAMINE HCL 100 MG TABLET (FP) PO SCH (21:08)
[2019-09-17] MEDS: hydrOXYzine PAMOATE 25 MG CAPSULE (FP) PO PRN (21:08)
[2019-09-17] MEDS: MELATONIN 5 MG TABLETS PO SCH (21:08)
[2019-09-17] MEDS: ATORVASTATIN CA 10 MG TABLET (FP) PO SCH (21:08)
[2019-09-18] MEDS: BRIMONIDINE TARTRATE 0.2% OPHTHALMIC 5 ML BOTTLE OU SCH ×3 (06:20→21:14)
[2019-09-18] MEDS ORDERED: PT OWN MED DRAWER 7, Y5N ONE ×2 (08:29→09:58)
[2019-09-18] MEDS: FERROUS SO4 325 MG TABLET (FP) PO SCH ×2 (09:56→21:14)
[2019-09-18] MEDS: HYDROCHLOROTHIAZIDE 25 MG TABLET (FP) PO SCH (09:56)
[2019-09-18] MEDS: MINERAL OIL/PET HY-PHL TOPICAL OINTMENT 454 GM JAR TP SCH (09:56)
[2019-09-18] MEDS: levETIRAcetam 500 MG TABLET (FP) PO SCH ×2 (09:57→21:14)
[2019-09-18] MEDS: METOPROLOL TARTRATE 50 MG TABLET (FP) PO SCH (09:57)
[2019-09-18] MEDS: PRENATAL VITAMINS W/ FOLIC ACID TABLET (FP) PO SCH (09:57)
[2019-09-18] MEDS: HYDROCORTISONE 1% TOPICAL CREAM 30 GM TUBE TP PRN (09:58)
[2019-09-18] MEDS: THIAMINE HCL 100 MG TABLET (FP) PO SCH (21:14)
[2019-09-18] MEDS: hydrOXYzine PAMOATE 25 MG CAPSULE (FP) PO PRN (21:14)
[2019-09-18] MEDS: ATORVASTATIN CA 10 MG TABLET (FP) PO SCH (21:14)
[2019-09-18] MEDS: MELATONIN 5 MG TABLETS PO SCH (21:14)
[2019-09-19] MEDS: BRIMONIDINE TARTRATE 0.2% OPHTHALMIC 5 ML BOTTLE OU SCH ×3 (05:58→21:10)
[2019-09-19] MEDS ORDERED: PT OWN MED DRAWER 7, Y5N ONE ×4 (08:45→16:01)
[2019-09-19] MEDS ORDERED: cloNIDine-TTS 0.3 MG /24 HRS PATCH.TDWK TD SCH ×2 (10:00)
[2019-09-19] MEDS: ERGOCALCIFEROL (VIT D2) 50,000 UNIT (1.25 MG) CAPSULE PO SCH (10:17)
[2019-09-19] MEDS: MINERAL OIL/PET HY-PHL TOPICAL OINTMENT 454 GM JAR TP SCH (10:17)
[2019-09-19] MEDS: FERROUS SO4 325 MG TABLET (FP) PO SCH ×2 (10:18→21:09)
[2019-09-19] MEDS: METOPROLOL TARTRATE 50 MG TABLET (FP) PO SCH (10:18)
[2019-09-19] MEDS: levETIRAcetam 500 MG TABLET (FP) PO SCH ×2 (10:18→21:09)
[2019-09-19] MEDS: PRENATAL VITAMINS W/ FOLIC ACID TABLET (FP) PO SCH (10:18)
[2019-09-19] MEDS: HYDROCHLOROTHIAZIDE 25 MG TABLET (FP) PO SCH (10:18)
[2019-09-19] MEDS: HYDROCORTISONE 1% TOPICAL CREAM 30 GM TUBE TP PRN (10:20)
[2019-09-19] MEDS: hydrOXYzine PAMOATE 25 MG CAPSULE (FP) PO PRN (21:09)
[2019-09-19] MEDS: ATORVASTATIN CA 10 MG TABLET (FP) PO SCH (21:09)
[2019-09-19] MEDS: MELATONIN 5 MG TABLETS PO SCH (21:09)
[2019-09-19] MEDS: THIAMINE HCL 100 MG TABLET (FP) PO SCH (21:09)
[2019-09-20] MEDS: BRIMONIDINE TARTRATE 0.2% OPHTHALMIC 5 ML BOTTLE OU SCH ×3 (06:06→21:08)
[2019-09-20] MEDS: FERROUS SO4 325 MG TABLET (FP) PO SCH ×2 (09:59→21:07)
[2019-09-20] MEDS: MINERAL OIL/PET HY-PHL TOPICAL OINTMENT 454 GM JAR TP SCH (09:59)
[2019-09-20] MEDS: levETIRAcetam 500 MG TABLET (FP) PO SCH ×2 (09:59→21:07)
[2019-09-20] MEDS: PRENATAL VITAMINS W/ FOLIC ACID TABLET (FP) PO SCH (10:00)
[2019-09-20] MEDS: HYDROCHLOROTHIAZIDE 25 MG TABLET (FP) PO SCH (10:00)
[2019-09-20] MEDS: METOPROLOL TARTRATE 50 MG TABLET (FP) PO SCH (10:00)
[2019-09-20] MEDS: HYDROCORTISONE 1% TOPICAL CREAM 30 GM TUBE TP PRN (10:01)
[2019-09-20] MEDS ORDERED: PT OWN MED DRAWER 7, Y5N ONE (10:03)
--- NOTE | 2019-09-20 13:03 | PN ---
[facility] Progress Note Note: HCTZ held because of low BP. Patient is concerned because of his LE edema. PMHx of chronic LE edema, peripheral vascular insufficiency, LE cellulitis. Adequate albumin and protein levels, renal labs-WNL, patient is on a low salt diet. P/E: Vital Signs Period Temp Pulse Resp BP Sys/David Pulse Ox Last 24 Hr 97.8 F-97.8 F 62-79 18-18 108-162/72-97 95-100 Laboratory Last Values Sodium 134 mmol/L (136-145) L 09/16/19 07:20 Potassium 4.2 mmol/L (3.5-5.1) 09/16/19 07:20 Chloride 103 mmol/L (98-107) 09/16/19 07:20 Carbon Dioxide 30 mmol/L (21-32) 09/16/19 07:20 Anion Gap 1 MMOL/L (8-16) L 09/16/19 07:20 BUN 15.0 mg/dL (7-18) 09/16/19 07:20 Creatinine 1.1 mg/dL (0.55-1.3) 09/16/19 07:20 Est GFR (CKD-EPI)AfAm 84.71 09/16/19 07:20 Est GFR (CKD-EPI)NonAf 73.09 09/16/19 07:20 Random Glucose 86 mg/dL (74-106) 09/16/19 07:20 Calcium 9.5 mg/dL (8.5-10.1) 09/16/19 07:20 Total Bilirubin 0.3 mg/dL (0.2-1) 09/16/19 07:20 AST 18 U/L (15-37) 09/16/19 07:20 ALT 16 U/L (13-61) 09/16/19 07:20 Alkaline Phosphatase 71 U/L (45-117) 09/16/19 07:20 Total Protein 7.9 g/dl (6.4-8.2) 09/16/19 07:20 Albumin 3.9 g/dl (3.4-5.0) 09/16/19 07:20 General: no apparent distress Resp: unlabored MSK: UE-full ROM, LE-limited ROM 2/2 edema, steady gait with walker Extremities: 2+ pitting edema from feet to ankles and mid-calf R>L, A/P Chronic LE edema Ordered raised foot of bed Explained to patient reason HCTZ was held Explained to patient that with chronic edema, HCTZ will have little effect. Patient understood explanations Will continue to monitor.
[2019-09-20] MEDS: THIAMINE HCL 100 MG TABLET (FP) PO SCH (21:07)
[2019-09-20] MEDS: ATORVASTATIN CA 10 MG TABLET (FP) PO SCH (21:07)
[2019-09-20] MEDS: hydrOXYzine PAMOATE 25 MG CAPSULE (FP) PO PRN (21:07)
[2019-09-20] MEDS: MELATONIN 5 MG TABLETS PO SCH (21:08)
[2019-09-21] MEDS: BRIMONIDINE TARTRATE 0.2% OPHTHALMIC 5 ML BOTTLE OU SCH ×3 (06:36→22:11)
[2019-09-21] MEDS: MINERAL OIL/PET HY-PHL TOPICAL OINTMENT 454 GM JAR TP SCH (09:34)
[2019-09-21] MEDS: HYDROCHLOROTHIAZIDE 25 MG TABLET (FP) PO SCH (09:34)
[2019-09-21] MEDS: METOPROLOL TARTRATE 50 MG TABLET (FP) PO SCH (09:34)
[2019-09-21] MEDS: levETIRAcetam 500 MG TABLET (FP) PO SCH ×2 (09:34→21:08)
[2019-09-21] MEDS: FERROUS SO4 325 MG TABLET (FP) PO SCH ×2 (09:34→21:08)
[2019-09-21] MEDS: PRENATAL VITAMINS W/ FOLIC ACID TABLET (FP) PO SCH (09:34)
[2019-09-21] MEDS: HYDROCORTISONE 1% TOPICAL CREAM 30 GM TUBE TP PRN ×2 (09:36→21:14)
[2019-09-21] MEDS ORDERED: PT OWN MED DRAWER 7, Y5N ONE ×3 (10:45→21:14)
[2019-09-21] MEDS: ACETAMINOPHEN 325 MG TABLET (FP) PO PRN (21:07)
[2019-09-21] MEDS: MELATONIN 5 MG TABLETS PO SCH (21:08)
[2019-09-21] MEDS: THIAMINE HCL 100 MG TABLET (FP) PO SCH (21:08)
[2019-09-21] MEDS: ATORVASTATIN CA 10 MG TABLET (FP) PO SCH (21:08)
[2019-09-22] MEDS: BRIMONIDINE TARTRATE 0.2% OPHTHALMIC 5 ML BOTTLE OU SCH ×3 (06:06→21:19)
[2019-09-22] MEDS ORDERED: PT OWN MED DRAWER 7, Y5N ONE (09:26)
[2019-09-22] MEDS: METOPROLOL TARTRATE 50 MG TABLET (FP) PO SCH (09:34)
[2019-09-22] MEDS: FERROUS SO4 325 MG TABLET (FP) PO SCH ×2 (09:35→21:18)
[2019-09-22] MEDS: levETIRAcetam 500 MG TABLET (FP) PO SCH ×2 (09:35→21:18)
[2019-09-22] MEDS: PRENATAL VITAMINS W/ FOLIC ACID TABLET (FP) PO SCH (09:35)
[2019-09-22] MEDS: HYDROCORTISONE 1% TOPICAL CREAM 30 GM TUBE TP PRN ×2 (09:35→21:20)
[2019-09-22] MEDS: HYDROCHLOROTHIAZIDE 25 MG TABLET (FP) PO SCH (09:35)
[2019-09-22] MEDS: MINERAL OIL/PET HY-PHL TOPICAL OINTMENT 454 GM JAR TP SCH (09:38)
--- NOTE | 2019-09-22 13:50 | PN ---
Psychiatric Progress Note Vital Signs: Vital Signs Period Temp Pulse Resp BP Sys/David Pulse Ox Last 24 Hr 97 F-97.8 F 65-88 16-18 125-149/80-95 95-100 Date of Session: 09/22/19 Chief Complaint:: " I need my seroquel. I cannot sleep at night." HPI: Patient has been in rehabilitation treatment ([address]) since 09/10/19. Issues : alcohol use disorder and chronic insomnia. Psychiatric follow- up has been requested to address repeated complaint of insomnia. Hospital course is otherwise unremarkable. ROS: Patient is alert, fully oriented and cooperative. Moves around with walker. Current Medications: Active Medications Generic Name Dose Route Start Last Admin Trade Name Freq PRN Reason Stop Dose Admin Acetaminophen 650 mg 09/10/19 12:34 09/21/19 21:07 Tylenol - PO 650 mg Q4H PRN Administration FEVER Al Hydroxide/Mg Hydroxide 30 ml 09/10/19 12:34 Mylanta Oral Suspension - PO Q6H PRN DYSPEPSIA Atorvastatin Calcium 10 mg 09/10/19 22:00 09/21/19 21:08 Lipitor - PO 10 mg HS ARLET Administration Brimonidine Tartrate 1 drop 09/10/19 14:00 09/22/19 06:06 Alphagan 0.2% - OU 1 drop TID ARLET Administration Clonidine HCl 0.3 mg 09/19/19 10:00 09/19/19 10:19 Catapres Tts Patch - TD 0.3 mg We@1000 ARLET Administration Emollient Ointment 1 applic 09/12/19 15:00 09/22/19 09:38 Aquaphor - TP Not Given DAILY [facility] Ergocalciferol 50,000 unit 09/12/19 10:00 09/19/19 10:17 Drisdol - PO 50,000 unit We@1000 ARLET Administration Eucalyptus/Menthol/Phenol/Sorbitol 1 each 09/10/19 12:34 Cepastat Lozenge - MM Q4H PRN SORE THROAT Ferrous Sulfate 325 mg 09/10/19 22:00 09/22/19 09:35 Feosol - PO 325 mg BID ARLET Administration Guaifenesin 10 ml 09/10/19 12:34 Robitussin - PO Q6H PRN COUGH Hydrochlorothiazide 25 mg 09/15/19 10:00 09/22/19 09:35 Hctz - PO 25 mg DAILY ARLET Administration Hydrocortisone 1 applic 09/17/19 12:26 09/22/19 09:35 Hytone 1% Cream - TP 1 applic BID PRN Administration FOR ITCHING Hydroxyzine Pamoate 25 mg 09/11/19 09:47 09/20/19 21:07 Vistaril - PO 25 mg Q4HWA PRN Administration ANXIETY Ibuprofen 400 mg 09/10/19 12:34 Motrin - PO Q6H PRN Pain Level 4-6 Levetiracetam 500 mg 09/10/19 22:00 09/22/19 09:35 Keppra - PO 500 mg BID ARLET Administration Loperamide HCl 4 mg 09/10/19 12:34 Imodium - PO Q6H PRN DIARRHEA Magnesium Citrate 300 ml 09/10/19 12:34 Citroma - PO Q48H PRN CONSTIPATION Magnesium Hydroxide 30 ml 09/10/19 12:34 Milk Of Magnesia - PO DAILY PRN CONSTIPATION Melatonin 5 mg 09/10/19 22:00 09/21/19 21:08 Melatonin PO 5 mg HS ARLET Administration Metoprolol Tartrate 100 mg 09/11/19 10:00 09/22/19 09:34 Lopressor - PO 100 mg DAILY ARLET Administration Multivit/Folic Acid/Iron 1 tab 09/11/19 10:00 09/22/19 09:35 Vitamins (Sjr) - PO 1 tab DAILY ARLET Administration Pseudoephedrine/Triprolidine 1 combo 09/10/19 12:34 Actifed - PO TID PRN NASAL CONGESTION Thiamine HCl 100 mg 09/10/19 22:00 09/21/19 21:08 Vitamin B1 - PO 100 mg HS ARLET Administration Medication(s) Change(s): Patient insists on resuming seroquel. "This is the medication that I get from my medical doctor for insomnia. I need to sleep at night. I need my seroquel." Patient is made aware of the risks/benefits + off label use of the medication. Mr Fitzpatrick denies history of adverse effects from seroquel. Ordered, at patient's request : seroquel 50 mg po hs. Patient grants informed consent (verbal) to . Current Side Effect: No Lab tests ordered: No Lab tests reviewed: Yes Provider note:: Chart reviewed. Dr Mart's note (09/17/19) : appreciated. Met with the patient. Mr Fitzpatrick is a good, clear and reliable historian. He is already known to this check writer. Patient reports his stay at [facility] beneficial in many domains (improved mood, self-control, good appetite, enhanced self- esteem and hopefulness) except for sleep. " This is the only reason why I wanted to meet with the psychiatrist." Patient is mentally stable. See MSE report for details. Continue rehabilitation. Total face to face time:: 25 Mental Status Exam - Mental Status Exam Alert and Oriented to: Time, Place, Person Cognitive Function: Good Patient Appearance: Well Groomed Mood: Hopeful, Euthymic Affect: Appropriate, Normal Range Patient Behavior: Fatigued, Appropriate, Cooperative Speech Pattern: Clear, Appropriate Voice Loudness: Normal Thought Process: Intact, Goal Oriented Thought Disorder: Not Present Hallucinations: Denies Suicidal Ideation: Denies Homicidal Ideation: Denies Insight/Judgement: Fair Sleep: Poorly, Difficulty falling asleep Appetite: Good Gait/Station: Other (ambulates with a walker) Psychiatric Treatment Plan - Problem List (1) Alcohol dependence Current Visit: Yes Comment: . (2) Insomnia Current Visit: Yes Comment: . (3) History of posttraumatic stress disorder (PTSD) Current Visit: No Comment: .No symptoms elicited in this interview.
[2019-09-22] MEDS: THIAMINE HCL 100 MG TABLET (FP) PO SCH (21:18)
[2019-09-22] MEDS: hydrOXYzine PAMOATE 25 MG CAPSULE (FP) PO PRN (21:18)
[2019-09-22] MEDS: ATORVASTATIN CA 10 MG TABLET (FP) PO SCH (21:18)
[2019-09-22] MEDS: QUEtiapine FUMARATE 50 MG TABLET PO SCH (21:18)
[2019-09-22] MEDS: MELATONIN 5 MG TABLETS PO SCH (21:18)
[2019-09-23] MEDS: BRIMONIDINE TARTRATE 0.2% OPHTHALMIC 5 ML BOTTLE OU SCH ×3 (06:26→21:22)
[2019-09-23] MEDS: levETIRAcetam 500 MG TABLET (FP) PO SCH ×2 (09:15→21:17)
[2019-09-23] MEDS: PRENATAL VITAMINS W/ FOLIC ACID TABLET (FP) PO SCH (09:15)
[2019-09-23] MEDS: FERROUS SO4 325 MG TABLET (FP) PO SCH ×2 (09:15→21:17)
[2019-09-23] MEDS: HYDROCORTISONE 1% TOPICAL CREAM 30 GM TUBE TP PRN (09:16)
[2019-09-23] MEDS: HYDROCHLOROTHIAZIDE 25 MG TABLET (FP) PO SCH (09:21)
[2019-09-23] MEDS: MINERAL OIL/PET HY-PHL TOPICAL OINTMENT 454 GM JAR TP SCH (09:21)
[2019-09-23] MEDS: METOPROLOL TARTRATE 50 MG TABLET (FP) PO SCH (09:21)
--- NOTE | 2019-09-23 13:23 | PN ---
S Progress Note Note: Psychiatric nurse practitioner note: Patient scheduled for discharge on 09/24/19. A 30 day prescription of seroquel 50mg HS was electronically sent to [facility] at [address] [place] [address].
[2019-09-23] MEDS: MELATONIN 5 MG TABLETS PO SCH (21:17)
[2019-09-23] MEDS: ATORVASTATIN CA 10 MG TABLET (FP) PO SCH (21:17)
[2019-09-23] MEDS: QUEtiapine FUMARATE 50 MG TABLET PO SCH (21:17)
[2019-09-23] MEDS: THIAMINE HCL 100 MG TABLET (FP) PO SCH (21:17)
[2019-09-23] MEDS: ACETAMINOPHEN 325 MG TABLET (FP) PO PRN (21:18)
[2019-09-23] MEDS ORDERED: PT OWN MED DRAWER 7, Y5N ONE (21:27)
[2019-09-24] MEDS: BRIMONIDINE TARTRATE 0.2% OPHTHALMIC 5 ML BOTTLE OU SCH (05:53)
[2019-09-24 06:43] VITALS: TEMP 97.8
--- NOTE | 2019-09-24 08:48 | DS ---
[facility] Rehab Discharge Summary - [facility] Rehab Discharge Summary Admission Date: 09/10/19 Discharge Date: 09/24/19 - History Present History: Alcohol dependence Additional Comments: Pt completed rehab and discharging today. Referred to [facility] for CD aftercare by his counselor. Pt reports he has a PCP Dr. Alcides Rapp on [address] [place] [address] . Pt states he is able to walk in to see his PCP. Courtesy Rx electronically sent to pt's Home pharmacy, [facility] to machine operator picker. Pertinent Past History: Anemia Chronic Venous Insufficiency Evaristo. Chronic Lower leg swelling Walker as ambulatory aid HTN Seizure DisorderArthritis of left hip COPD PTSD Bipolar Disorder - Discharge Physical Exam Vital Signs: Vital Signs Temperature 97.8 F 09/24/19 06:42 Pulse Rate 69 09/24/19 06:42 Respiratory Rate 18 09/24/19 06:42 Blood Pressure 149/97 09/24/19 06:42 O2 Sat by Pulse Oximetry (%) 96 09/24/19 06:42 Pertinent Admission Physical Exam Findings: Laboratory Tests 09/16/19 07:20 Sodium 134 L Potassium 4.2 Chloride 103 Carbon Dioxide 30 Anion Gap 1 L BUN 15.0 Creatinine 1.1 Est GFR (CKD-EPI)AfAm 84.71 Est GFR (CKD-EPI)NonAf 73.09 Random Glucose 86 Calcium 9.5 Total Bilirubin 0.3 AST 18 ALT 16 Alkaline Phosphatase 71 Total Protein 7.9 Albumin 3.9 - Treatment Discharge Condition: Discharge condition good Hospital Course: Completed rehab and accepted referral to [facility]. - Medication Discharge Medications: Ambulatory Orders Brimonidine Tartrate [Alphagan 0.2% -] 1 drop OU TID 08/04/18 Folic Acid - 1 mg PO DAILY 08/04/18 Multivitamin [One-Daily Multi-Vitamin] 1 each PO DAILY 08/04/18 Thiamine HCl [Vitamin B1 -] 100 mg PO DAILY 30 Days #30 tablet 03/06/19 Amlodipine Besylate [Norvasc -] 10 mg PO DAILY 09/05/19 Phenytoin Na Extended [Dilantin -] 100 mg PO TID 09/05/19 Furosemide [Lasix -] 20 mg PO DAILY 09/11/19 Clonidine Patch [Catapres Tts Patch -] 0.3 mg TD ONCE #1 patch.tdwk 09/12/19 Quetiapine Fumarate [Seroquel -] 50 mg PO HS #30 tablet 09/23/19 Atorvastatin Ca [Lipitor] 10 mg PO HS #15 tablet 09/24/19 Clonidine Patch [Catapres Tts Patch -] 0.3 mg TD ONCE #1 patch.tdwk 09/24/19 Ergocalciferol [Vitamin D2] 50,000 unit PO Q7D@1000 #14 capsule 09/24/19 Ferrous Sulfate [Feosol] 325 mg PO BID #14 tablet 09/24/19 Hydrochlorothiazide [Hctz -] 25 mg PO DAILY #7 tablet 09/24/19 Metoprolol Tartrate [Lopressor -] 100 mg PO DAILY #30 tablet 09/24/19 levETIRAcetam [Keppra -] 500 mg PO BID #60 tablet 09/24/19 - Medication-Assisted Treatment (MAT) Medication-Assisted Treatment (MAT): No - Discharge Instructions Diet, activity, other medical instructions: Diet:NIK Activity: oob ad fortino with walker Other medical instructions:follow up with pcp and CD aftercare as recommended. - Diagnosis (1) Venous insufficiency Status: Chronic (2) Arthritis of left hip Status: Chronic (3) Walker as ambulation aid Status: Chronic (4) Alcohol dependence Status: Chronic Qualifiers: Substance use status: uncomplicated Qualified Code(s): F10.20 - Alcohol dependence, uncomplicated (5) Anemia Status: Chronic (6) HTN (hypertension) Status: Chronic Qualifiers: Hypertension type: essential hypertension Qualified Code(s): I10 - Essential (primary) hypertension (7) Seizure disorder Status: Chronic (8) Hx of eye surgery Status: Resolved (9) Arthritis of both knees Status: Chronic - Follow-up Referral Minutes to complete discharge: 35 - AMA Did Patient Leave Against Medical Advice: No
[2019-09-24] MEDS ORDERED: PT OWN MED DRAWER 7, Y5N ONE (09:01)
[2019-09-24] MEDS: MINERAL OIL/PET HY-PHL TOPICAL OINTMENT 454 GM JAR TP SCH (09:04)
[2019-09-24] MEDS: levETIRAcetam 500 MG TABLET (FP) PO SCH (09:04)
[2019-09-24] MEDS: FERROUS SO4 325 MG TABLET (FP) PO SCH (09:04)
[2019-09-24] MEDS: PRENATAL VITAMINS W/ FOLIC ACID TABLET (FP) PO SCH (09:04)
[2019-09-24] MEDS: METOPROLOL TARTRATE 50 MG TABLET (FP) PO SCH (09:12)
[2019-09-24] MEDS: HYDROCHLOROTHIAZIDE 25 MG TABLET (FP) PO SCH (09:12)
[2019-09-24 09:13] VITALS: BP 113/69; PULSE 84
== END 2019-09-24 09:42 | disposition home or self-care (01) | DRG 895 ==
LOC: YASAS 11:27 → Y3E 11:29
PROVIDERS: ADMIT Allergy & Immunology; ATTEND Allergy & Immunology
PROC: HZ42ZZZ Group Counseling for Substance Abuse Treatment, Cognitive-Behavioral (ICD-10-PCS; principal; 2019-09-10)
DX: F10.20 Alcohol dependence, uncomplicated (principal); F10.282 Alcohol dependence with alcohol-induced sleep disorder; F31.9 Bipolar disorder, unspecified; F43.10 Post-traumatic stress disorder, unspecified; J43.0 Unilateral pulmonary emphysema [MacLeod's syndrome]; I10 Essential (primary) hypertension; D64.9 Anemia, unspecified; G47.00 Insomnia, unspecified; G40.909 Epilepsy, unspecified, not intractable, without status epilepticus; M17.0 Bilateral primary osteoarthritis of knee; M16.12 Unilateral primary osteoarthritis, left hip; L29.8 Other pruritus; R21 Rash and other nonspecific skin eruption; R60.0 Localized edema; H54.40 Blindness, one eye, unspecified eye; R26.2 Difficulty in walking, not elsewhere classified; Z99.89 Dependence on other enabling machines and devices; Z87.820 Personal history of traumatic brain injury
CPT/HCPCS: 36415; 80053